=== PATIENT | female | born 1945 | race Caucasian/White ===

== ENCOUNTER → 2016-10-05 | Outpatient (CLI) | payer BC ==
[~2016-10-05] MED LIST: CHOL1000 PO; LOTE0.5S OPB; MULTTAB58 PO
--- NOTE | 2016-10-05 11:31 | DIAGNOSTIC IMAGING REPORT ---
ULTRASOUND ABDOMEN COMPLETE CLINICAL HISTORY: Epigastric abdominal pain. COMPARISON STUDY: Abdominal CT dated 02/27/2010. TECHNIQUE: Real-time, grayscale, and color flow sonography of the abdomen was performed. Images are reviewed in the transverse and longitudinal planes. FINDINGS: Liver: The liver is enlarged and demonstrates heterogeneously increased echotexture consistent with moderate to severe hepatic steatosis. Note that this degrades acoustic penetration of the liver. There is no intrahepatic biliary ductal dilatation. The main portal vein is patent. Gallbladder: The gallbladder is surgically absent. The common bile duct measures up to 0.6 cm in diameter. Pancreas: Visualized portions of the pancreatic head and body are normal in appearance. Spleen: The spleen is normal in size and echotexture, measuring 8.7 cm in length. Kidneys: The kidneys are normal in size and echotexture. There is no hydronephrosis. The right kidney measures 12.4 cm in length and the left kidney measures 12.0 cm in length. No shadowing calculi are identified. Abdominal vasculature: Visualized portions of the abdominal aorta and IVC are normal as visualized. Ascites: None. IMPRESSION: 1. No acute sonographic abnormality is identified noting status post cholecystectomy. 2. Hepatomegaly and hepatic steatosis. Electronically signed by: Devonte Orozco M.D. 10/05/2016 11:30 AM Dictated Date/Time: 10/05/2016 11:28 AM
== END | disposition home or self-care (01) ==
LOC: C.ULTR 10:20
PROVIDERS: ATTEND Family Medicine
DX: R10.13 Epigastric pain (principal); R16.0 Hepatomegaly, not elsewhere classified; K76.0 Fatty (change of) liver, not elsewhere classified

== ENCOUNTER → 2016-10-12 | Outpatient (CLI) | payer BC ==
[~2016-10-12] MED LIST changes: +OPTIRAY 320 IV PRN
--- NOTE | 2016-10-12 15:48 | DIAGNOSTIC IMAGING REPORT ---
CT OF THE ABDOMEN WITH AND WITHOUT CONTRAST LIVER PROTOCOL CT DOSE: 1799.10 mGycm CLINICAL HISTORY: Epigastric pain, hepatic steatosis and hepatomegaly. TECHNIQUE: Unenhanced, arterial and venous phase imaging of the abdomen was performed. Injection of 119 cc Optiray 320 IV was uneventful. COMPARISON STUDY: CT of the abdomen and pelvis February 27, 2010 and abdominal ultrasound October 05, 2016. FINDINGS: There is fatty infiltration of the liver. A 6 mm hypodense right hepatic lobe lesion is unchanged since CT of February 27, 2010 and is therefore benign. The spleen, adrenal glands, kidneys and pancreas are normal unremarkable. There is no biliary ductal dilatation status post cholecystectomy. The caliber and wall thickness of visualized small and large bowel are normal. There is no abdominal lymphadenopathy or ascites. There are no suspicious osseous lesions. There is mild dextroscoliosis of the lumbar spine. IMPRESSION: 1. Fatty infiltration of the liver. 2. No biliary ductal dilatation status post cholecystectomy. 3. No acute process within the abdomen. Electronically signed by: Godfrey Hernandez M.D. 10/12/2016 3:46 PM Dictated Date/Time: 10/12/2016 3:34 PM
== END | disposition home or self-care (01) ==
LOC: C.CTS 14:44
PROVIDERS: ATTEND Family Medicine
DX: R10.13 Epigastric pain (principal); R16.0 Hepatomegaly, not elsewhere classified; K76.0 Fatty (change of) liver, not elsewhere classified

== ENCOUNTER → 2017-07-08 | Outpatient (CLI) | payer BC ==
[~2017-07-08] MED LIST changes: -OPTIRAY 320 IV PRN
--- NOTE | 2017-07-08 09:13 | DIAGNOSTIC IMAGING REPORT ---
R KNEE 3 VIEWS CLINICAL HISTORY: 71 years-old Female presenting with RIGHT KNEE PAIN. TECHNIQUE: Bilateral frontal view of the knees as well as sunrise and lateral views of the right knee were obtained. COMPARISON: None. FINDINGS: The knee joints are symmetric. Osteophytosis noted in the lateral compartment of the left knee. Calcification in the proximal left lower leg likely degenerative or a phlebolith. The right knee demonstrates no significant osteophytosis in the medial or lateral compartments. Trace osteophytosis in the patellofemoral compartment. No significant patellar subluxation. No acute fracture or malalignment. Knee joint effusion suspected. IMPRESSION: 1. Right knee joint effusion. 2. No acute osseous injury of the right knee. 3. Degenerative changes in the patellofemoral compartment of the right knee. 4. Degenerative changes of the lateral compartment of the left knee. Electronically signed by: Eddie Mckay M.D. 07/08/2017 9:12 AM Dictated Date/Time: 07/08/2017 9:11 AM
== END | disposition home or self-care (01) ==
LOC: C.RDSM 13:31
PROVIDERS: ATTEND Family Medicine
DX: M25.561 Pain in right knee (principal); M25.461 Effusion, right knee; M17.0 Bilateral primary osteoarthritis of knee

== ENCOUNTER → 2017-11-03 | Outpatient (CLI) | payer BC | END | disposition home or self-care (01) | LOC: C.LAB 09:35 | PROVIDERS: ATTEND Family Medicine | DX: Z00.00 Encounter for general adult medical examination without abnormal findings (principal); H91.90 Unspecified hearing loss, unspecified ear; E55.9 Vitamin D deficiency, unspecified ==

== ENCOUNTER 2022-09-26 21:52 | Observation (INO) ==
[2022-09-26] MEDS ORDERED: SODIUM CHLORIDE 0.9% 500 ML IV ONE (22:35)
[2022-09-26 23:07] LABS: Basophils # (auto) 0.07 K/uL (0-0.2); Basophils % (auto) 1.1 %; Eosinophils # (auto) 0.21 K/uL (0-0.50); Eosinophils % (auto) 3.2 %; Hematocrit (blood only) 41.7 % (37.0-47.0); Hemoglobin 14.2 g/dl (12.0-16.0); Immature Granulocytes # (auto) 0.02 K/uL (0.01-0.20); Immature Granulocytes % (auto) 0.3 %; Lymphocytes # (auto) 2.43 K/uL (1.2-3.4); Lymphocytes % (auto) 36.9 %; Mean Corpuscular Hemoglobin 30.5 pg (25.0-34.0); Mean Corpuscular Hgb Conc 34.1 g/dL (32.0-36.0); Mean Corpuscular Volume 89.5 fL (80.0-100.0); Mean Platelet Volume 11.3 fL (9.4-12.4); Monocytes # (auto) 0.57 K/uL (0.11-0.59); Monocytes % (auto) 8.7 %; Neutrophils # (auto) 3.28 K/uL (1.40-6.50); Neutrophils % (auto) 49.8 %; Platelet Count 197 K/uL (130-400); RDW Coefficient of Variation 12.9 % (11.5-14.5); RDW Standard Deviation 42.5 fL (36.4-46.3); Red Blood Count 4.66 M/uL (4.20-5.40); White Blood Count 6.58 K/ul (4.8-10.8)
[2022-09-26 23:17] LABS: Albumin Globulin Ratio 1.6 (0.9-2); Albumin Level 4.6 gm/dl (3.4-5.0); BUN Creatinine Ratio 34.6 (10-20); Bilirubin,Total 0.9 mg/dl (0.2-1.0); Calcium 10.1 mg/dl (8.6-10.3); Creatinine Clr Calc Pharmacy 67.6 ml/min; Est GFR (African American) 85.6 ml/min; Est GFR (Non-African American) 73.8 ml/min; Globulin 2.9 gm/dl (2.5-4.0); Phosphorus 4.1 mg/dl (2.5-4.9); Potassium 3.5 mmol/L (3.5-5.1); Total Protein 7.5 gm/dl (6.0-8.3)
[2022-09-26 23:23] LABS: Troponin I High Sensitivity 5.3 pg/ml (0-14)
[2022-09-26] MEDS ORDERED: LORazepam 1 MG TAB SL STA (23:30)
[2022-09-26 23:35] LABS: Prothrombin Time 11.3 Seconds (9.0-12.0)
--- NOTE | 2022-09-26 23:36 | Emergency Department Note ---
Impression & Plan Paresthesia, Hypertension, Atypical chest pain ED Provider Note NAME: NANETTE CHURCHILL AGE: 76 SEX: F ARRIVES VIA: Walk-In INFORMANT: Patient ED PROVIDER(S): Kris Childress MD CHIEF COMPLAINT: Left lip and left hand numbness, tingling. Chest pain. PLAN: Disposition: Admit MEDICAL DECISION MAKING: The patient is a pleasant 76-year-old woman with a past medical history of vertigo, nephrolithiasis who presents to the emergency department via walk-in, accompanied by her and daughter for evaluation of left lip numbness and tingling as well as left hand, fingertip numbness and tingling that [place]. The patient's symptoms occur in the setting of having intermittent recurrence of the symptoms over the past month or so where she was seen in the emergency department last week by this provider and had unremarkable evaluation including CT of the head CTA of the head and neck. She has subsequently followed up with her primary care doctor's office and outpatient blood work had been ordered as well as patient was given a [place]. However, patient reports that she has yet to get these tests done. She also understands a stress test was ordered but has not heard about a scheduling date. She acknowledges today as she did on her prior visit that she is under a significant amount of stress and tonight she reports that her job was particularly stressful and describes the airport as "cra[place]". She denies any fevers, chills, cough, congestion. She reports feeling several seconds of left lower chest tightness this evening when she was at home and this prompted her to come to emergency department for reevaluation. She reports since being seen in the emergency department last week she did not have any recurrence of the tingling in her lips or hand. Her blood pressure was elevated on her last emergency department evaluation however she reports upon following up at her PCPs office this past week her blood pressure was in the 130s/80s. On arrival to the emergency department the patient is anxious appearing but no acute distress, afebrile with blood pressure initially 200/100s and vital signs otherwise stable. She appears clinically dry. She has no objective focal neurologic deficits. At the time of my evaluation the patient denied feeling paresthesias in her lips or hands and reports that her first second and third fingertips are what are typically affected. EKG without overt acute ischemia. Chest x-ray negative for acute cardiopulmonary process per my preliminary review. WBC, H/H and platelets within normal limits. Chemistry without metabolic acidosis. BUN/creatinine> 30 consistent with patient's clinically dry appearance. Electrolytes and LFTs otherwise unremarkable. High-sensitivity troponin 5.3, within normal limits. TSH within normal limits. COVID-19 RNA, MIOL test negative. CT of the head and CT of the head and neck were performed and were negative for acute abnormalities. Patient was treated with IV fluid hydration and 0.5 mg of sublingual Ativan with subsequent improvement in her blood pressure down to the 160s/80s. However upon reevaluation patient the patient does appear more restless and blood pressure was then again elevated. We did discuss her recurrent symptoms and ultimately she did agree with plan for admission for further evaluation. Case was discussed with Dr. Hines, [facility] hospitalist, who will evaluate the patient for admission. Triage Nursing notes reviewed and agree them. Prior/outside medical records reviewed Vital Signs: reviewed Differential diagnosis: Infection, dehydration, metabolic abnormality, hypo/hyperglycemia, electrolyte disturbance, anemia, hypoxia, cardiac sources, intracerebral event, toxicologic, neurologic, as well as other pathologies. ER treatment provided: See below. Diagnostics interpreted by me: ECG: Normal sinus rhythm, 65 bpm, no ectopy. No overt ST elevation or depression, QTc 440, QRS 86 Cardiac Monitoring: An order for continuous cardiac monitoring was placed and demonstrated Normal sinus rhythm, 65 bpm, no ectopy. Laboratory studies: See below Imaging studies: See below Consultation(s): Case was discussed with Dr. Hines [facility] hospitalist, who will evaluate the patient for admission. HPI: The patient is a pleasant 76-year-old woman with a past medical history of vertigo, nephrolithiasis who presents to the emergency department via walk-in, accompanied by her and daughter for evaluation of left lip numbness and tingling as well as left hand, fingertip numbness and tingling that began today when [place]. The patient's symptoms occur in the setting of having intermittent recurrence of the symptoms over the past month or so where she was seen in the emergency department last week by this provider and had unremarkable evaluation including CT of the head CTA of the head and neck. She has subsequently followed up with her primary care doctor's office and outpatient blood work had been ordered as well as patient was given a [place]. However, patient reports that she has yet to get these tests done. She also understands a stress test was ordered but has not heard about a scheduling date. She acknowledges today as she did on her prior visit that she is under a significant amount of stress and tonight she reports that her job was particularly stressful and describes the airport as "cra[place]". She denies any fevers, chills, cough, congestion. She reports feeling several seconds of left lower chest tightness this evening when she was at home and this prompted her to come to emergency department for reevaluation. She reports since being seen in the emergency department last week she did not have any recurrence of the tingling in her lips or hand. Her blood pressure was elevated on her last emergency department evaluation however she reports upon following up at her PCPs office this past week her blood pressure was in the 130s/80s. ROS: See above HPI for pertinent positives & negatives. A total of 10 systems reviewed and were otherwise negative. VITALS:See Below PHYSICAL EXAMINATION: GENERAL: Awake, alert, anxious-appearing, in no distress HENT: Normocephalic, atraumatic. Oropharynx with dry mucous membranes and otherwise unremarkable. EYES: Normal conjunctiva. Sclera non-icteric. EOMI. No nystamgus. PEARRL. NECK: Supple. No nuchal rigidity. FROM. No JVD. RESPIRATORY: Clear to auscultation. CARDIAC: Regular rate, normal rhythm. Extremities warm and well perfused. Pulses equal. ABDOMEN: Soft, non-distended. No tenderness to palpation. No rebound or guarding. No masses. RECTAL: Deferred. MUSCULOSKELETAL: Chest examination reveals no tenderness. The back is symmetrical on inspection without obvious abnormality. There is no CVA tenderness to palpation. No joint edema. LOWER EXTREMITIES: Calves are equal size bilaterally and non-tender. No edema. No discoloration. NEURO: Normal sensorium. No sensory or motor deficits noted. CNII-XII grossly intact. 5/5 strength and SILT x 4 extremities. Cerebellar function intact including [id number], alternating palms, [id number]. SKIN: No rash or jaundice noted. Kris Childress MD Past Med/Surg History Medical History (Updated 09/27/22 @ 02:23 by Kris Childress MD) Benign positional vertigo Fall SNHL (sensorineural hearing loss) Uses hearing aid Wrist pain, left Surgical History Cataract extraction status H/O breast reconstruction H/O: section Hx of tonsillectomy Post corneal transplant S/P mastectomy Family History Father Stroke Family/Other Hearing loss Other No significant family history Social History Smoking Status: Never smoker Preferred Language: Citizen Of [place] marital status: Current Living Situation: Spouse current occupational status: employed Feels Safe at Home: Yes Allergies Allergies Allergy/AdvReac Type Severity Reaction Status Date / Time insect venom Allergy Unknown Verified 09/27/22 02:14 No Known Drug Allergies Allergy NKDA Verified 09/27/22 02:14 Home Meds Home Medications Medication Instructions Recorded Confirmed biotin 5 mg tablet 0 mg PO QAM 12/08/18 09/27/22 cholecalciferol (vitamin D3) 125 5,000 unit PO QAM 12/08/18 09/27/22 mcg (5,000 unit) tablet (Vitamin D3) loteprednol etabonate 0.5 % eye 1 drp OPB 3XWK 09/27/22 09/27/22 drops,suspension (Lotemax) vit C 30 mg-s.smith 250 mg-celery 1 cap PO DAILY 09/27/22 09/27/22 seed 75 mg-grape seed extrt capsule (Tart Smith) Previous Rx's Medication Instructions Recorded epinephrine 0.3 mg/0.3 mL 0.3 mg (0.3 mL) IM Q15M PRN 11/24/18 injection, auto-injector anaphylaxis #2 ea Results & Data (ED) Vital Signs Vital Signs - 24 hr 09/26/22 21:54 09/26/22 21:53 09/26/22 23:12 Temperature 36.7 C Temperature Source Temporal Artery Scan Pulse Rate 71 Pulse Rate [Right Finger] 58 L Pulse Rhythm Respiratory Rate 18 15 23 Respiratory Effort / Characteristics Non-Labored Spontaneous Non-Labored Respiratory Depth Normal Normal Blood Pressure 191/79 H Blood Pressure [Right Arm] 202/100 H 191/97 H Blood Pressure Mean 116 Blood Pressure Mean [Right Arm] 134 128 Pulse Oximetry 97 99 98 Oxygen Delivery Method Room Air Room Air Room Air Sepsis Recent Fever Within 48 Hours No Sepsis New/Unexplained Change in Mental Status No Sepsis Action Taken by Nursing No Action Required 09/26/22 22:33 09/27/22 00:12 09/27/22 00:47 Temperature Temperature Source Pulse Rate 62 Pulse Rate [Right Finger] 71 62 Pulse Rhythm Regular Respiratory Rate 16 16 21 Respiratory Effort / Characteristics Respiratory Depth Blood Pressure Blood Pressure [Right Arm] 169/87 H 191/96 H Blood Pressure Mean Blood Pressure Mean [Right Arm] 114 127 Pulse Oximetry 100 99 93 Oxygen Delivery Method Room Air Room Air Room Air Sepsis Recent Fever Within 48 Hours Sepsis New/Unexplained Change in Mental Status Sepsis Action Taken by Nursing 09/27/22 01:04 09/27/22 02:00 Temperature Temperature Source Pulse Rate Pulse Rate [Right Finger] 61 110 H Pulse Rhythm Respiratory Rate 16 16 Respiratory Effort / Characteristics Respiratory Depth Blood Pressure Blood Pressure [Right Arm] 177/93 H 177/92 H Blood Pressure Mean Blood Pressure Mean [Right Arm] 121 120 Pulse Oximetry 94 98 Oxygen Delivery Method Sepsis Recent Fever Within 48 Hours Sepsis New/Unexplained Change in Mental Status Sepsis Action Taken by Nursing Laboratory Data Attestation: I reviewed the patient's lab results. 09/26/22 22:15 09/26/22 22:15 Lab Results 09/26/22 09/26/22 09/26/22 Range/Units 22:15 22:15 22:15 WBC 6.58 (4.8-10.8) K/ul RBC 4.66 (4.20-5.40) M/uL Hgb 14.2 (12.0-16.0) g/dl Hct 41.7 (37.0-47.0) % MCV 89.5 (80.0-100.0) fL MCH 30.5 (25.0-34.0) pg MCHC 34.1 (32.0-36.0) g/dL RDW Std Deviation 42.5 (36.4-46.3) fL RDW Coeff of Oscar 12.9 (11.5-14.5) % Plt Count 197 (130-400) K/uL MPV 11.3 (9.4-12.4) fL Immature Gran % (Auto) 0.3 % Neut % (Auto) 49.8 % Lymph % (Auto) 36.9 % [place] % (Auto) 8.7 % Eos % (Auto) 3.2 % Baso % (Auto) 1.1 % Neut # (Auto) 3.28 (1.40-6.50) K/uL Lymph # (Auto) 2.43 (1.2-3.4) K/uL [place] # (Auto) 0.57 (0.11-0.59) K/uL Eos # (Auto) 0.21 (0-0.50) K/uL Baso # (Auto) 0.07 (0-0.2) K/uL Immature Gran # (Auto) 0.02 (0.01-0.20) K/uL PT (9.0-12.0) Seconds INR (0.9-1.1) Sodium 139 (136-145) mmol/L Potassium 3.5 (3.5-5.1) mmol/L Chloride 104 (98-107) mmol/L Carbon Dioxide 27 (21-32) mmol/L Anion Gap 8 (3-11) BUN 27 H (6-23) mg/dl Creatinine 0.78 (0.6-1.2) mg/dl Est Cr Clr Drug Dosing 67.6 ml/min Est GFR ( Amer) 85.6 ml/min Est GFR (Non-Af Amer) 73.8 ml/min BUN/Creatinine Ratio 34.6 H (10-20) Glucose 93 (70-99(Fasting)) mg/dl Calcium 10.1 (8.6-10.3) mg/dl Phosphorus 4.1 (2.5-4.9) mg/dl Magnesium 2.0 (1.7-2.4) mg/dl Total Bilirubin 0.9 (0.2-1.0) mg/dl AST 21 (13-39) U/L ALT 17 (7-52) U/L Alkaline Phosphatase 56 (34-104) U/L Troponin I High Sens 5.3 (0-14) pg/ml Total Protein 7.5 (6.0-8.3) gm/dl Albumin 4.6 (3.4-5.0) gm/dl Globulin 2.9 (2.5-4.0) gm/dl Albumin/Globulin Ratio 1.6 (0.9-2) Lipase 13 (11-82) U/L TSH 3.162 (0.300-4.500) uIu/ml SARS-CoV-2, RNA, NAAT (NEGATIVE) 09/26/22 09/26/22 Range/Units 22:15 22:39 WBC (4.8-10.8) K/ul RBC (4.20-5.40) M/uL Hgb (12.0-16.0) g/dl Hct (37.0-47.0) % MCV (80.0-100.0) fL MCH (25.0-34.0) pg MCHC (32.0-36.0) g/dL RDW Std Deviation (36.4-46.3) fL RDW Coeff of Oscar (11.5-14.5) % Plt Count (130-400) K/uL MPV (9.4-12.4) fL Immature Gran % (Auto) % Neut % (Auto) % Lymph % (Auto) % [place] % (Auto) % Eos % (Auto) % Baso % (Auto) % Neut # (Auto) (1.40-6.50) K/uL Lymph # (Auto) (1.2-3.4) K/uL [place] # (Auto) (0.11-0.59) K/uL Eos # (Auto) (0-0.50) K/uL Baso # (Auto) (0-0.2) K/uL Immature Gran # (Auto) (0.01-0.20) K/uL PT 11.3 (9.0-12.0) Seconds INR 1.0 (0.9-1.1) Sodium (136-145) mmol/L Potassium (3.5-5.1) mmol/L Chloride (98-107) mmol/L Carbon Dioxide (21-32) mmol/L Anion Gap (3-11) BUN (6-23) mg/dl Creatinine (0.6-1.2) mg/dl Est Cr Clr Drug Dosing ml/min Est GFR ( Amer) ml/min Est GFR (Non-Af Amer) ml/min BUN/Creatinine Ratio (10-20) Glucose (70-99(Fasting)) mg/dl Calcium (8.6-10.3) mg/dl Phosphorus (2.5-4.9) mg/dl Magnesium (1.7-2.4) mg/dl Total Bilirubin (0.2-1.0) mg/dl AST (13-39) U/L ALT (7-52) U/L Alkaline Phosphatase (34-104) U/L Troponin I High Sens (0-14) pg/ml Total Protein (6.0-8.3) gm/dl Albumin (3.4-5.0) gm/dl Globulin (2.5-4.0) gm/dl Albumin/Globulin Ratio (0.9-2) Lipase (11-82) U/L TSH (0.300-4.500) uIu/ml SARS-CoV-2, RNA, NAAT NEGATIVE (NEGATIVE) Administered Medications Sodium Chloride (Nss) 500 mls @ 125 mls/hr IV .Q4H KYARA Stop: 10/26/22 23:44 Last Admin: 09/27/22 00:12 Dose: 125 mls/hr Documented By: BEE Discontinued Medications Sodium Chloride (Nss) 500 mls @ 999 mls/hr IV .Q31M ONE Stop: 09/26/22 23:05 Last Infusion: 09/26/22 23:11 Dose: 0 mls/hr Documented By: Admin: 09/26/22 22:42 Dose: 999 mls/hr Documented By: BEE Ioversol (Optiray 320 500ml) 110 ml IV ONCE ONE Stop: 09/27/22 00:09 Last Admin: 09/27/22 00:00 Dose: 110 ml Documented By: JENNY Lorazepam (Lorazepam 1 Mg Tab) 0.5 mg SL NOW STA Stop: 09/26/22 23:31 Last Admin: 09/26/22 23:44 Dose: 0.5 mg Documented By: BEE Imaging Data Radiologist's Impression: Head CT 09/26/22 23:30 Exam(s): CT HEAD Without Contrast EXAM: CT Head Without Intravenous Contrast CLINICAL HISTORY: Reason for exam: left mouth and hand numbness/tingling. TECHNIQUE: Axial computed tomography images of the head/brain without intravenous contrast. CTDI is 37.78 mGy and DLP is 624.41 mGy-cm. Automated exposure control was utilized for the study. A dose lowering technique was utilized adhering to the principles of ALARA. COMPARISON: No relevant prior studies available. FINDINGS: Brain: The cerebral and cerebellar sulci are mildly prominent consistent with mild brain atrophy. There are a few areas of decreased attenuation in the deep cerebral white matter consistent with mild small vessel ischemic/degenerative changes. No hemorrhage. Ventricles: Unremarkable. No ventriculomegaly. Bones/joints: Unremarkable. No acute fracture. Soft tissues: Unremarkable. Vasculature: Atherosclerotic disease. Sinuses: Unremarkable as visualized. No acute sinusitis. Mastoid air cells: Unremarkable as visualized. No mastoid effusion. IMPRESSION: No acute findings in the head/brain. Electronically signed by: Jeremy Melgar MD 09/27/22 00:28 AM Head CTA 09/26/22 23:30 Exam(s): CTA HEAD With Contrast IV Amt: 110 ML EXAM: CT Angiography Head With Intravenous Contrast CLINICAL HISTORY: Reason for exam: left mouth and hand numbness/tingling. TECHNIQUE: Axial computed tomographic angiography images of the head with intravenous contrast. CTDI is no solid 20.76 mGy and DLP is 10.38 mGy-cm. Automated exposure control was utilized for the study. A dose lowering technique was utilized adhering to the principles of ALARA. MIP reconstructed images were created and reviewed. CONTRAST: Patient received 110 ML of IV contrast COMPARISON: Dated 09/18/22 FINDINGS: Right internal carotid artery: No acute findings. Intracranial segment is patent with no significant stenosis. No aneurysm. Right anterior cerebral artery: Unremarkable. No occlusion or significant stenosis. No aneurysm. Right middle cerebral artery: Unremarkable. No occlusion or significant stenosis. No aneurysm. Right posterior cerebral artery: Unremarkable. No occlusion or significant stenosis. No aneurysm. Right vertebral artery: Unremarkable as visualized. Left internal carotid artery: No acute findings. Intracranial segment is patent with no significant stenosis. No aneurysm. Left anterior cerebral artery: Unremarkable. No occlusion or significant stenosis. No aneurysm. Left middle cerebral artery: Unremarkable. No occlusion or significant stenosis. No aneurysm. Left posterior cerebral artery: Unremarkable. No occlusion or significant stenosis. No aneurysm. Left vertebral artery: Unremarkable as visualized. Basilar artery: Unremarkable. No occlusion or significant stenosis. No aneurysm. IMPRESSION: Normal head CTA. Electronically signed by: Jeremy Melgar MD 09/27/22 00:24 AM Neck CTA 09/26/22 23:30 Exam(s): CTA NECK With Contrast IV Amt: 110 ML EXAM: CT Angiography Neck With Intravenous Contrast CLINICAL HISTORY: Reason for exam: left mouth and hand numbness/tingling. TECHNIQUE: Routine carotid CT angiography protocol was performed with intravenous contrast. NASCET criteria using the distal ICAs for comparison were used for evaluation of stenoses. CTDI is 11.92 mGy and DLP is 456.52 mGy-cm. Automated exposure control was utilized for the study. A dose lowering technique was utilized adhering to the principles of ALARA. MIP reconstructed images were created and reviewed. CONTRAST: Patient received 110 ML of IV contrast COMPARISON: None. FINDINGS: VASCULATURE: Right common carotid artery: Unremarkable. No occlusion or significant stenosis. No dissection. Right internal carotid artery: Unremarkable. Extracranial segment is patent with no occlusion or significant stenosis. No dissection. Right external carotid artery: Unremarkable. No occlusion. Right vertebral artery: Unremarkable. No occlusion or significant stenosis. No dissection. Left common carotid artery: Unremarkable. No occlusion or significant stenosis. No dissection. Left internal carotid artery: Unremarkable. Extracranial segment is patent with no occlusion or significant stenosis. No dissection. Left external carotid artery: Unremarkable. No occlusion. Left vertebral artery: Unremarkable. No occlusion or significant stenosis. No dissection. NECK: Bones/joints: Unremarkable. Soft tissues: Unremarkable. Lung apices: Clear. CAROTID STENOSIS REFERENCE USING NASCET CRITERIA: % ICA stenosis = (1 - narrowest ICA diameter/diameter of distal cervical ICA) x 100. Mild - <50% stenosis. Moderate - 50-69% stenosis. Severe - 70-94% stenosis. Near occlusion - 95-99% stenosis. Occluded - 100% stenosis. IMPRESSION: Negative CTA neck. Electronically signed by: Jeremy Melgar MD 09/27/22 00:25 AM Discharge Plan Visit Data Chief Complaint: Illness Stated Complaint: NUMBNESS ON LEFT SIDE OF MOUTH AND FINGERS ED Provider: Kris Childress Discharge Problem: Paresthesia, Hypertension, Atypical chest pain Forms Stand Alone Forms: [facility] Prescriptions Prescriptions: No Action epinephrine 0.3 mg/0.3 mL auto-injector 0.3 mg IM Q15M PRN (Reason: anaphylaxis) Qty: 2 0RF biotin 5 mg Tablet 0 mg PO QAM Patient Comments: Patient unsure of strength cholecalciferol (vitamin D3) [Vitamin D3] 5,000 unit Tablet 5,000 unit PO QAM loteprednol etabonate [Lotemax] 0.5 % drops,suspension 1 drp OPB 3XWK Rx Instructions: Mon, wed, fri Tart Smith [id number] mg Capsule 1 cap PO DAILY Referrals Referrals: Dionicio López MD [Primary Care Provider] -
[2022-09-27] MEDS ORDERED: OPTIRAY 320 500ml IV ONE (00:08)
[2022-09-27] MEDS: SODIUM CHLORIDE 0.9% 500 ML IV SCH ×2 (00:12→03:19)
--- NOTE | 2022-09-27 00:25 | CT Scan Report ---
Exam(s): CTA HEAD With Contrast IV Amt: 110 ML EXAM: CT Angiography Head With Intravenous Contrast CLINICAL HISTORY: Reason for exam: left mouth and hand numbness/tingling. TECHNIQUE: Axial computed tomographic angiography images of the head with intravenous contrast. CTDI is no solid 20.76 mGy and DLP is 10.38 mGy-cm. Automated exposure control was utilized for the study. A dose lowering technique was utilized adhering to the principles of ALARA. MIP reconstructed images were created and reviewed. CONTRAST: Patient received 110 ML of IV contrast COMPARISON: Dated 09/18/22 FINDINGS: Right internal carotid artery: No acute findings. Intracranial segment is patent with no significant stenosis. No aneurysm. Right anterior cerebral artery: Unremarkable. No occlusion or significant stenosis. No aneurysm. Right middle cerebral artery: Unremarkable. No occlusion or significant stenosis. No aneurysm. Right posterior cerebral artery: Unremarkable. No occlusion or significant stenosis. No aneurysm. Right vertebral artery: Unremarkable as visualized. Left internal carotid artery: No acute findings. Intracranial segment is patent with no significant stenosis. No aneurysm. Left anterior cerebral artery: Unremarkable. No occlusion or significant stenosis. No aneurysm. Left middle cerebral artery: Unremarkable. No occlusion or significant stenosis. No aneurysm. Left posterior cerebral artery: Unremarkable. No occlusion or significant stenosis. No aneurysm. Left vertebral artery: Unremarkable as visualized. Basilar artery: Unremarkable. No occlusion or significant stenosis. No aneurysm. IMPRESSION: Normal head CTA. Electronically signed by: Jeremy Melgar MD 09/27/22 00:24 AM
--- NOTE | 2022-09-27 00:26 | CT Scan Report ---
Exam(s): CTA NECK With Contrast IV Amt: 110 ML EXAM: CT Angiography Neck With Intravenous Contrast CLINICAL HISTORY: Reason for exam: left mouth and hand numbness/tingling. TECHNIQUE: Routine carotid CT angiography protocol was performed with intravenous contrast. NASCET criteria using the distal ICAs for comparison were used for evaluation of stenoses. CTDI is 11.92 mGy and DLP is 456.52 mGy-cm. Automated exposure control was utilized for the study. A dose lowering technique was utilized adhering to the principles of ALARA. MIP reconstructed images were created and reviewed. CONTRAST: Patient received 110 ML of IV contrast COMPARISON: None. FINDINGS: VASCULATURE: Right common carotid artery: Unremarkable. No occlusion or significant stenosis. No dissection. Right internal carotid artery: Unremarkable. Extracranial segment is patent with no occlusion or significant stenosis. No dissection. Right external carotid artery: Unremarkable. No occlusion. Right vertebral artery: Unremarkable. No occlusion or significant stenosis. No dissection. Left common carotid artery: Unremarkable. No occlusion or significant stenosis. No dissection. Left internal carotid artery: Unremarkable. Extracranial segment is patent with no occlusion or significant stenosis. No dissection. Left external carotid artery: Unremarkable. No occlusion. Left vertebral artery: Unremarkable. No occlusion or significant stenosis. No dissection. NECK: Bones/joints: Unremarkable. Soft tissues: Unremarkable. Lung apices: Clear. CAROTID STENOSIS REFERENCE USING NASCET CRITERIA: % ICA stenosis = (1 - narrowest ICA diameter/diameter of distal cervical ICA) x 100. Mild - <50% stenosis. Moderate - 50-69% stenosis. Severe - 70-94% stenosis. Near occlusion - 95-99% stenosis. Occluded - 100% stenosis. IMPRESSION: Negative CTA neck. Electronically signed by: Jeremy Melgar MD 09/27/22 00:25 AM
--- NOTE | 2022-09-27 00:29 | CT Scan Report ---
Exam(s): CT HEAD Without Contrast EXAM: CT Head Without Intravenous Contrast CLINICAL HISTORY: Reason for exam: left mouth and hand numbness/tingling. TECHNIQUE: Axial computed tomography images of the head/brain without intravenous contrast. CTDI is 37.78 mGy and DLP is 624.41 mGy-cm. Automated exposure control was utilized for the study. A dose lowering technique was utilized adhering to the principles of ALARA. COMPARISON: No relevant prior studies available. FINDINGS: Brain: The cerebral and cerebellar sulci are mildly prominent consistent with mild brain atrophy. There are a few areas of decreased attenuation in the deep cerebral white matter consistent with mild small vessel ischemic/degenerative changes. No hemorrhage. Ventricles: Unremarkable. No ventriculomegaly. Bones/joints: Unremarkable. No acute fracture. Soft tissues: Unremarkable. Vasculature: Atherosclerotic disease. Sinuses: Unremarkable as visualized. No acute sinusitis. Mastoid air cells: Unremarkable as visualized. No mastoid effusion. IMPRESSION: No acute findings in the head/brain. Electronically signed by: Jeremy Melgar MD 09/27/22 00:28 AM
--- NOTE | 2022-09-27 03:47 | History & Physical Report ---
Date of Service September 27, 2022 Assessment & Plan (1) Paresthesia of lower lip: Plan: 76 F with no significant PMH who presented to the emergency room for focal perioral numbness and tingling, and distal fingertip numbness and tingling on the left. Admitted for further work-up/stroke, TIA rule out. Paresthesias -Unclear etiology. Appear to be brought on by stress at work. Appear to be accompanied by paroxysmal anxiety. -Diagnostic work-up thus far negative. Neurologic physical exam done at admission benign, nonfocal. No dysarthria, dysmetria, or facial droop. -Symptoms vaguely resemble TIA presentation but patient has no chronic history of hypertension or atherosclerotic disease. ABCD score of 2, suggesting low risk for TIA. * Admit to PCU telemetry for observation * MRI brain, TTE ordered. Await report * Lipid panel ordered. Await results * Started on aspirin 81 mg daily * Consider outpatient neurology evaluation if results remain nondiagnostic. Hypertension -Acute; not on any chronic medications. -Review of [facility] chart shows normal blood pressures going back 18 months Code: Full code Dispo: PCU FEN/GI: Regular DVT Prophylaxis: Lovenox 40 mg q24h PT/OT: No Consults: None Case Management: No (2) Left hand paresthesia: (3) Elevated blood pressure reading: (4) Hypertension: History of Present Illness Primary Care Provider: Dioniciokathy López Yumiko is a 76-year-old woman with a past medical history of who sensorineural hearing loss and BPPV, who presented to the emergency room after an acute episode of left-sided lip numbness tingling, left hand, left fingertip numbness and tingling that started at work this afternoon. Patient reports this is the third or fourth instance of this phenomenon which occurred for the first time last month. She had reached out to her PCP for outpatient evaluation of the same symptoms but work-up (including CT head, CT head/neck) was negative. She denies any recent illness, history of hypertension, vision changes, headache, shortness of breath, chest pain, nausea, vomiting, or pedal edema. In the ED, blood pressure was elevated to the 190s-200s systolic/100s diastolic. Remaining vitals were within normal limits. CBC was normal, as was CMP. Noncontrast head CT, and head and neck CTA done tonight were both negative. She received an NS bolus x0.5 L. She received sublingual lorazepam 0.5 mg, after which her pressure improved slightly. Hospitalist was then consulted for admission to observation for further diagnostic work-up. On admission, and daughter are at bedside. They corroborate the HPI. She does not have the presenting lip numbness or left fingertip numbness at present. She reports that she recently stopped taking sertraline, which was started approximately 2 months ago by her PCP, because it was not working for her, and she felt better after stopping it. Allergies Allergy/AdvReac Type Severity Reaction Status Date / Time insect venom Allergy Unknown Verified 09/27/22 02:14 No Known Drug Allergies Allergy NKDA Verified 09/27/22 02:14 Home Medications Medication Instructions Recorded Confirmed Type epinephrine 0.3 mg/0.3 mL 0.3 mg (0.3 mL) IM Q15M PRN 11/24/18 09/27/22 Rx injection, auto-injector anaphylaxis #2 ea biotin 5 mg tablet 0 mg PO QAM 12/08/18 09/27/22 History cholecalciferol (vitamin D3) 125 5,000 unit PO QAM 12/08/18 09/27/22 History mcg (5,000 unit) tablet (Vitamin D3) loteprednol etabonate 0.5 % eye 1 drp OPB 3XWK 09/27/22 09/27/22 History drops,suspension (Lotemax) rosuvastatin 5 mg tablet 5 mg PO DAILY #30 tabs 09/27/22 Rx vit C 30 mg-s.smith 250 mg-celery 1 cap PO DAILY 09/27/22 09/27/22 History seed 75 mg-grape seed extrt capsule (Tart Smith) Past Med/Surg History Medical History (Updated 09/27/22 @ 02:23 by Kris Childress MD) Benign positional vertigo Fall SNHL (sensorineural hearing loss) Uses hearing aid Wrist pain, left Surgical History Cataract extraction status H/O breast reconstruction H/O: section Hx of tonsillectomy Post corneal transplant S/P mastectomy Family History Father Stroke Family/Other Hearing loss Other No significant family history Social History Smoking Status: Never smoker Second Hand Exposure: No; Do You Dip or Chew Tobacco: No; Hx Alcohol Use: Yes Alcohol type: wine Hx Substance Use: No Preferred Language: Italian Communication Ability: Effective Air Hole Driller Required: No Beliefs That Will Affect Care: None marital status: Current Living Situation: Spouse Current Living Situation Comment: Home with current occupational status: employed Feels Safe at Home: Yes Assistive Devices: Hearing Aid - Bilateral Review of Systems Review of Systems: All systems reviewed & are unremarkable except as noted in HPI & below Physical Exam Physical Exam: General: Well-appearing, alert, interactive, and in no acute distress. HEENT: Normocephalic, atraumatic. EOM intact. Good conjugate gaze. Nares patent. Moist mucosal membranes. Neck: Supple. No lymphadenopathy. Normal ROM. CV: Regular rate and rhythm. Normal S1 and S2. No murmurs gallops or rubs. Respiratory: Normal respiratory effort. Lungs clear to auscultation bilaterally. No crackles, rhonchi, or wheezes. Abdomen: Soft, nondistended abdomen. No bruits heard on auscultation. No tenderness to deep palpation. No guarding or rebound. Extremities: Capillary refill <2 sec. 2+ dp equal bilaterally. No pedal edema. Neuro: Alert and oriented x3. Skin: Clean, dry, and intact. No rashes, bruises, or erythema. Results & Data Results & Data Vital Signs (Past 12 Hours) Vital Signs Temp Pulse Pulse Resp BP BP Pulse Ox 09/27/22 02:21 58 L 09/27/22 02:37 79 16 175/96 H 97 09/27/22 02:00 110 H 16 177/92 H 98 09/27/22 01:04 61 16 177/93 H 94 09/27/22 00:47 62 21 191/96 H 93 09/27/22 00:12 71 16 169/87 H 99 09/26/22 22:33 62 16 100 09/26/22 23:12 58 L 23 191/97 H 98 09/26/22 21:53 15 202/100 H 99 09/26/22 21:54 36.7 C 71 18 191/79 H 97 O2 Del Method 09/27/22 02:21 09/27/22 02:37 09/27/22 02:00 09/27/22 01:04 09/27/22 00:47 Room Air 09/27/22 00:12 Room Air 09/26/22 22:33 Room Air 09/26/22 23:12 Room Air 09/26/22 21:53 Room Air 09/26/22 21:54 Room Air Supervising Physician Co-Signing Physician Notes Attending addendum: I have supervised the medical residents activities, and agree with the H&P unless as otherwise noted. Assessment and Plan: Lower lip paresthesias- The patient will be admitted to telemetry for serial cardiac enzymes, serial EKG's, cardiac rhythm monitoring and a 2-D echocardiogram with Dopplers. Stroke without tPA order set Negative stroke evaluation: CT head negative, CTA head neck negative MRI brain without contrast ordered Admit to monitored bed overnight Permissive hypertension overnight Elevated blood pressure- Likely secondary to stress, although allow permissive hypertension for possible stroke related issues Hyperlipidemia- Continue rosuvastatin Remaining orders and notations as noted Resident Activity Tracking Resident Involvement: Resident Care Provided Care Provided: Adult Hospital Medicine
[2022-09-27] MEDS ORDERED: EPINEPHrine INJ 1 MG/ML AMP IM PRN (05:17)
[2022-09-27 05:44] LABS: Appearance Urine Clear (Clear); Bilirubin Urine Negative (Negative); Blood Urine Negative (Negative); Color Urine Yellow; Glucose Urine UA Negative (Negative); Ketones Urine Negative (Negative); Leukocyte Esterase Urine Negative (Negative); Nitrite Urine Negative (Negative); Protein Urine Negative (Negative); Specific Gravity Urine 1.036 (1.000-1.030); Urobilinogen Urine Negative (Negative); pH Urine 6.5 (4.5-7.5)
--- NOTE | 2022-09-27 07:38 | Electrocardiogram Report ---
Test Reason : Blood Pressure : / mmHG Vent. Rate : 065 BPM Atrial Rate : 065 BPM P-R Int : 194 ms QRS Dur : 086 ms QT Int : 424 ms P-R-T Axes : 066 001 040 degrees QTc Int : 440 ms Normal sinus rhythm Poor R wave progression, consider anterior TN vs. lead placement vs. LVH Abnormal ECG When compared with ECG of 18-SEP-2022 11:23, No significant change was found Confirmed by Sanjeev Jovel ([id number]) on 09/27/2022 7:37:49 AM Referred By: REFERRED SELF Confirmed By:Vincenzo Jovel
[2022-09-27 07:54] LABS: Chol HDL Ratio 3.9 (0-5)
[2022-09-27 08:44] LABS: Estimated Average Glucose 126 mg/dl
--- NOTE | 2022-09-27 08:59 | XCELERA ---
[id number]
[2022-09-27] MEDS ORDERED: ASPIRIN 81 MG ECTAB PO SCH (09:00)
[2022-09-27] MEDS ORDERED: CHOLECALCIFEROL 5,000 UNITS 125 MCG TAB PO SCH (09:00)
--- NOTE | 2022-09-27 09:47 | XRay Report ---
XR chest 1V portable CLINICAL HISTORY: hand numbness TECHNIQUE: Single frontal radiograph of the chest was obtained. Comparison: Comparison is made to chest radiograph 09/18/2022 FINDINGS: No lines and tubes are seen. Cardiomegaly is noted. The lungs are clear. No evidence of pleural effus ion or pneumothorax. IMPRESSION: No acute chest disease. ACT 112: Negative or not required by law. Electronically signed by: Carlos A Roberts M.D. 09/27/2022 9:45 AM
--- NOTE | 2022-09-27 14:45 | Magnetic Resonance Report ---
MR brain wo con CLINICAL HISTORY: stroke r/o TECHNIQUE: Multiplanar and multisequence MR images of the brain were obtained without intravenous con trast. Comparison: Comparison is made to CTA head 09/26/2022 FINDINGS: No abnormal restricted diffusion is identified. Foci of T2 and FLAIR hyperintensity are noted in the paraventricular areas consistent with chronic small vessel ischemic disease. Ex vacuo ventriculomegal y and sulcal enlargement is noted compatible with diffuse volume loss. No mass is seen. There is no m ass effect or midline shift. There is no evidence of acute intraparenchymal hemorrhage. No extra axia l fluid collections are seen. The corpus callosum, pituitary gland, and cerebellar tonsils appear jag ssly unremarkable. Flow voids of the major intracranial arterial vessels are identified. The imaged portions of the para nasal sinuses, mastoid air cells, and orbits are unremarkable. IMPRESSION: No acute abnormalities. ACT 112: Negative or not required by law. Electronically signed by: Carlos A Roberts M.D. 09/27/2022 2:43 PM
--- NOTE | 2022-09-27 16:23 | Discharge Summary ---
Date of Service September 27, 2022 Admission HPI Per Admitting Provider Yumiko is a 76-year-old woman with a past medical history of who sensorineural hearing loss and BPPV, who presented to the emergency room after an acute episode of left-sided lip numbness tingling, left hand, left fingertip numbness and tingling that started at work this afternoon. Patient reports this is the third or fourth instance of this phenomenon which occurred for the first time last month. She had reached out to her PCP for outpatient evaluation of the same symptoms but work-up (including CT head, CT head/neck) was negative. She denies any recent illness, history of hypertension, vision changes, he adache, shortness of breath, chest pain, nausea, vomiting, or pedal edema. In the ED, blood pressure was elevated to the 190s-200s systolic/100s diastolic. Remaining vitals were within normal limits. CBC was normal, as was CMP. Noncontrast head CT, and head and neck CTA done tonight were both negative. She received an NS bolus x0.5 L. She received sublingual lorazepam 0.5 mg, after which her pressure improved slightly. Hospitalist was then consulted for admission to observation for further diagnostic work-up. On admission, and daughter are at bedside. They corroborate the HPI. She does not have the presenting lip numbness or left fingertip numbness at present. She reports that she recently stopped taking sertraline, which was started approximately 2 months ago by her PCP, because it was not working for her, and she felt better after stopping it. Admission Exam Per Admitting Provider General: Well-appearing, alert, interactive, and in no acute distress. HEENT: Normocephalic, atraumatic. EOM intact. Good conjugate gaze. Nares patent. Moist mucosal membranes. Neck: Supple. No lymphadenopathy. Normal ROM. CV: Regular rate and rhythm. Normal S1 and S2. No murmurs gallops or rubs. Respiratory: Normal respiratory effort. Lungs clear to auscultation bilaterally. No crackles, rhonchi, or wheezes. Abdomen: Soft, nondistended abdomen. No bruits heard on auscultation. No tenderness to deep palpation. No guarding or rebound. Extremities: Capillary refill <2 sec. 2+ dp equal bilaterally. No pedal edema. Neuro: Alert and oriented x3. Skin: Clean, dry, and intact. No rashes, bruises, or erythema. Principal Diagnosis paresthesia Discharge Exam GENERAL: No acute distress. Well developed and well nourished. Vital signs reviewed as above. EYES: PERRL. EOMI. Anicteric sclerae. HENT: Moist mucous membranes. RESPIRATORY: Clear to auscultation bilaterally. No wheezing, rales, or rhonchi. CARDIOVASCULAR: Regular rate and rhythm. No murmurs. No JVD. EXTREMITIES: No gross deformities. No edema. Non-tender. Negative Phalen's. Negative reverse Phalen's. Negative tinnel's test at carpal tunnel. SKIN: Warm, dry. NEUROLOGIC: A/O x3. Normal speech. No focal neurological deficits. CN II-XII intact. PSYCHIATRIC: Cooperative. Appropriate mood and affect. Discharge Data Allergies Allergy/AdvReac Type Severity Reaction Status Date / Time insect venom Allergy Unknown Verified 09/27/22 02:14 No Known Drug Allergies Allergy NKDA Verified 09/27/22 02:14 Consultations 09/27/22 01:39 ED Decision to Admit Stat Ordered Studies 09/26/22 23:30 CT angio head w con Stat CT angio neck with con Stat CT head/brain wo con Stat 09/27/22 03:14 MRI Brain [MR brain wo con] Routine Hospital Course (1) Paresthesia of lower lip: 76 F with no significant PMH who presented to the emergency room for focal perioral numbness and tingling, and distal fingertip numbness and tingling on the left. Admitted for further work-up/stroke, TIA rule out. [facility] was revisited with patient during day of admission. Patient reports that for the past ~1 month, she has had 5 distinct episodes (about once per week) of left perioral tingling as well as left distal fingertip (of just digits 1-3). The left perioral tingling starts at the midline of upper lip and radiates periorally to the midline of the lower lip. This perioral tingling lasts for about 5 minutes before spontaneously resolving. Concurrently, patient has left distal finger tingling that lasts "a little longer" than the perioral tingling. The last episode occurred last night while finishing a shift at work, which prompted her evaluation in the ER. Many of the episodes that she has had are associated with increased stress ([place] but she notes that they can also happen at rest. She adamantly denies CP, SOB, GOLDBERG, lightheadedness, dizziness, vision changes, abdominal pain, nausea, vomiting, or any other symptoms during these episodes. Also, interestingly, patient is able to precipitate some episodes (in particular the left finger tingling) by specific activities such as gripping the steering wheel hard or heavy lifting of luggage/work. Patient does report a hx of anxiety that was recently diagnosed but notes that she self-discontinued sertraline ~1 week ago as it was not helping. Paresthesias -No recurrence of symptoms during admission -Extensive discussion with patient regarding ddx including TIA vs neurological deficit due to increased stressors/anxiety. -Regardless, we did discuss that stress is likely contributing to these episodes. Patient to weight risk vs benefit of continuing to work at [employer] for the next 6 months. Encouraged continued conversation re: social stressors w/ PCP. -Workup completed 09/26-09/27/22: -MRI brain w/ no acute findings. There is evidence of chronic small vessel ischemic disease. -CTA head/neck negative -Head CT negative -TTE: mild concentric LVH. Grade 1 diasolic dysfunction. -Lipid profile: Total chol 206, LDL 128, HDL 52, trig 131 -HgbA1c 6.0% -TSH 3.16 -Discussed risk/benefit of ASA and statin for secondary risk reduction on the possibility/probability that these episodes were small vessel TIA. Through shared decision making, plan to start ASA and rosuvastatin. Hypertension -Acute; not on any chronic medications. ? baseline HTN vs white coat hypertension -Review of [facility] chart shows no significantly elevated BP readings in office over the past 18 months -Encouraged patient to buy home BP cuff and check home BP BID for several weeks -Take log of home BP readings to PCP f/u appt Anxiety/Increased social stressors -Discussed current stressors, with the primary stressor being work -Continue f/u with PCP and consider trial of different SSRI as she did not feel benefit with sertraline after ~2 month trial (2) Left hand paresthesia: (3) Elevated blood pressure reading: (4) Hypertension: Total Time Total Time Spent Total Time Spent (In Minutes): See attending attestation Discharge Plan Discharge Items Patient Disposition: Home - Self-Care Reason For Visit: STROKE R/O Discharge Diagnosis: paresthesia Activity: Per Instructions section Non-emergency contact: Primary Care Provider Call non-emergency contact if: you have any medication questions Follow-up/Referrals: Dionicio López MD [Primary Care Provider] - Diet: Regular Addtl Attending Provider Instructions: It was our pleasure to care for you at [facility] on 09/27/2022. You initially presented to the emergency room with concern for tingling around your lips as well as tingling of the first 3 fingers of your left hand. While in the emergency department, you had high blood pressures. You underwent extensive work up including imaging of your brain (both CT and MRI), CT angiography of your head and neck (looking at the vasculature), and labs. Thankfully, all of your symptoms have resolved. As we discussed, these symptoms are likely associated with your increased stress. It is possible that you are having small TIAs (a "mini stroke") and/or you are having some neurological deficits (e.g. the tingling) due to stress and anxiety. As we discussed the risks and benefits with you, we have decided to start you on aspirin and a cholesterol medication (statin) to protect you and decrease your risk of a stroke. We also discussed getting a blood pressure cuff to check your blood pressure at home. Please check your pressure 1-2 times per day and keep a log. This is important information to take to your primary care doctor in follow up. You have done well and at this time we feel that it is safe for you to be discharged home. A discharge summary will be sent to your primary care physician to ensure continuity of care. Please bring this discharge summary with you to your next office appointment so that your provider can review it at that time. Follow-up appointments: Keep all your follow-up appointments as already scheduled. If you cannot make an appointment, notify your provider. Medications: Your medication list has been reviewed and reconciled upon discharge to ensure accuracy and continuity of care. An updated list of all your medications is included with your hospital discharge paperwork. Please review this list closely, and make note of any changes. A new medication, rosuvastatin (Crestor), has been added to your medication list. A prescription for this medication has been sent to your pharmacy ([facility] in [place]). You should also start taking a baby aspirin, ASA 81 mg, by mouth once a day. If you have any issues filling these prescriptions, please call [phone] and ask to leave a message for Dr. Briscoe. Take your medications as instructed; do not skip a dose of your medicines. Make sure all of your doctors know every medicine you are taking (including pqlf-efh-zmdcyhi medicines, vitamins, and supplements). Call your primary care provider before taking any new medicines (including over- the- counter medicines, vitamins, and supplements), because some of these may interact with your current medications, or may make your symptoms worse. Tell your primary care provider if you cannot afford your medications. CONTACT YOUR PRIMARY CARE PROVIDER if you experience any of the following: Worsening of symptoms Fever, chills, or fatigue Difficulty following your treatment plan, or difficulty taking medications CALL 911 OR GO TO THE EMERGENCY DEPARTMENT if you experience any of the following: Sudden, severe abdominal pain or nausea/vomiting Severe chest pain, or chest pain that radiates (moves) to your jaw or arm Sudden, severe shortness of breath or difficulty breathing Thank you for allowing us to participate in your care. Pending Studies at Discharge: No Stand-Alone Forms: [facility] [employer], Smoking Cessation Medications and DC Order Prescriptions: New rosuvastatin 5 mg tablet 5 mg PO DAILY Qty: 30 0RF Continued epinephrine 0.3 mg/0.3 mL auto-injector 0.3 mg IM Q15M PRN (Reason: anaphylaxis) Qty: 2 0RF biotin 5 mg Tablet 0 mg PO QAM Patient Comments: Patient unsure of strength cholecalciferol (vitamin D3) [Vitamin D3] 5,000 unit Tablet 5,000 unit PO QAM loteprednol etabonate [Lotemax] 0.5 % drops,suspension 1 drp OPB [id number] Rx Instructions: Mon, wed, fri [place] [id number] mg Capsule 1 cap PO DAILY Discharge Orders: Discharge Order (Routine); Ordered 09/27/22 Ordered By: Obdulia Burden/Other Patient Handouts: A1C Admission Data Admit Date/Time: 09/27/22 03:06 Attending Provider: Jc Zambrano Admit Provider: Michelle Diane Primary Care Provider: Dionicio López Other Providers: Brendan Hines Other Interventions: Discharge Summary Assessment (RN) Last Done: 09/27/22 17:04 Supervising Physician Co-Signing Physician Notes I personally examined the patient and verified all nguyễn points of history and exam, discussed case, and agree with decision making with Dr Briscoe. Feeling better and would like to go home. Discussed working diagnoses, discussed that regardless of diagnosis, it is quite clear that stress plays a role. She was thinking about stopping this job anyway. Vitals noted, in general she is awake and alert pleasant no distress. HEENT normocephalic atraumatic mucous membranes moist. Breathing unlabored no accessory muscle use good effort. Skin shows no rashes no pallor or icterus. Neuro without focal deficits. CBC, BMP, A1c, lipid panel, echocardiogram, MRI brain all noted. ParesthesiasMain differential would be anxiety/carpal tunnel versus TIAthe fact that the face and hand symptoms seem to come and go simultaneous to each other, and the fact that her face symptoms appear to be left side of her mouth only makes me obligated to look at this is a TIAgiven her lack of other findings, it would almost certainly be intracranial atherosclerosis. Her A1c certainly is not high enough to warrant treatment, as it relates to her lipids, labeling her as having had a TIA would definitely warrant statin, will initiate aspirin 81 mg daily, and given her small vessel disease type findings on MRI, and LVH on echocardiogramI asked that she initiate ambulatory blood pressure monitoringroughly twice daily at homeunder varied circumstancesso that when she follows up with her PCP in the near future (she has an appointment in about 3 weeks) she will have a good run of averages to review togetherthis is especially because essentially all of her blood pressures in the [facility] EMR system look respectable/normal, and essentially all of her blood pressures in [facility] appear to be elevated. At this point no immediate need for antihypertensives. We discussed that it is quite possible that she has a little bit of atherosclerosis, but then stress mediated vasospasm could also be mechanism for the TIAs. safe/stable for home asa, atorvastatin for now PCP in near future (already scheduled for about 3wks) Resident Activity Tracking Resident Involvement: Resident Care Provided Care Provided: Adult Hospital Medicine
--- NOTE | 2022-09-27 18:02 | Billing Data ---
Date of Service September 27, 2022 Coding Level of Care Code 68493 IN/OBS DISCH 30 MIN/LESS
--- NOTE | 2022-09-27 20:49 | Billing Data ---
Date of Service September 27, 2022 Coding Level of Care Code 69345 INT INP/OBS CARE
[2022-09-28] MEDS ORDERED: ENOXAPARIN INJ 40 MG/0.4 ML SYR SQ SCH (09:00)
== END 2022-09-27 17:35 | disposition home or self-care (01) ==
LOC: 4W 21:52 → ED 21:52 → SUATTDRO 09-27 03:06 → 4W 09-27 04:43

== ENCOUNTER 2024-08-15 13:01 | Inpatient (IN) ==
[2024-08-15 13:57] LABS: Basophils # (auto) 0.07 K/uL (0.00-0.20); Basophils % (auto) 0.9 %; Eosinophils # (auto) 0.16 K/uL (0.00-0.50); Hematocrit (blood only) 41.4 % (37.0-47.0); Hemoglobin 14.1 g/dl (12.0-16.0); Immature Granulocytes # (auto) 0.04 K/uL (0.01-0.20); Immature Granulocytes % (auto) 0.5 %; Lymphocytes % (auto) 18.7 %; Mean Corpuscular Hemoglobin 30.3 pg (25.0-34.0); Mean Corpuscular Hgb Conc 34.1 g/dL (32.0-36.0); Mean Platelet Volume 10.8 fL (9.4-12.4); Monocytes % (auto) 7.5 %; Neutrophils # (auto) 5.66 K/uL (1.40-6.50); Neutrophils % (auto) 70.4 %; Platelet Count 188 K/uL (130-400); RDW Coefficient of Variation 12.8 % (11.5-14.5); RDW Standard Deviation 41.6 fL (36.4-46.3); Red Blood Count 4.65 M/uL (4.20-5.40); White Blood Count 8.03 K/ul (4.8-10.8)
--- NOTE | 2024-08-15 14:24 | XRay Report ---
XR tibia fibula LT 2V CLINICAL HISTORY: Fall. COMPARISON: Left foot radiographs October 11, 2012. FINDINGS: No proximal left tibial or fibular fractures are present. There is an acute fracture of th e medial malleolus which is displaced 6 mm. There is also an acute oblique mildly displaced distal le ft fibular fracture and a probable acute nondisplaced fracture of the posterior distal left tibia. Th ere is mild medial ankle mortise widening. IMPRESSION: 1. Acute mildly displaced left ankle trimalleolar fracture. 2. Mild medial ankle mortise widening. 3. No proximal left tibial or fibular fracture. ACT 112: Negative or not required by law. Electronically signed by: Godfrey Hernandez M.D. 08/15/2024 2:23 PM
--- NOTE | 2024-08-15 14:25 | XRay Report ---
XR ankle LT min 3V routine CLINICAL HISTORY: fall, deformity COMPARISON: Left foot radiographs October 11, 2012. FINDINGS: There are acute mildly displaced fractures of the distal shaft of the left fibula and the medial malleolus. There is a probable acute nondisplaced fracture of the posterior distal left tibia. Mild medial ankle mortise widening is present. Soft tissue swelling is noted. Left MTP joint fusion is partially imaged. IMPRESSION: Acute mildly displaced left ankle trimalleolar fracture with mild medial ankle mortise wi dening. ACT 112: Negative or not required by law. Electronically signed by: Godfrey Hernandez M.D. 08/15/2024 2:24 PM
[2024-08-15 14:39] LABS: Partial Thromboplastin Ratio 0.8; Partial Thromboplastin Time 22 Seconds (21-31)
--- NOTE | 2024-08-15 14:46 | Emergency Department Note ---
Impression & Plan Closed trimalleolar fracture of left ankle, Fall, Fracture of right foot ED Provider Note NAME: NANETTE CHURCHILL AGE: 78 SEX: F : 1945 ARRIVES VIA: Ambulance INFORMANT: [Patient] ED PROVIDER(S): [Devonte Louise MD] CHIEF COMPLAINT: Trauma HISTORY OF PRESENT ILLNESS: The patient is a 78-year-old female who states a short time ago, she caught her foot on the stairs and fell down 3 stairs injuring both ankles, more so the left. She was not able to ambulate. She was brought for evaluation. Patient is not on blood thinning agents. The patient states she did not injure her head, neck, back, chest or abdomen. Her only complaints involve the ankles, more so the left. The patient is adamant that this fall was mechanical. PMHx/PSHx/Social Hx: See Below PHYSICAL EXAM: Primary Survey Airway: Intact Breathing: Breath sounds equal bilaterally. No respiratory distress Circulation: Skin warm, capillary refill less than 2 seconds Disability: Pupils equal and reactive to light Motor Function: Moves all extremities. Sensory: No deficits Secondary Survey GEN: Well developed and well-nourished HEAD: Normocephalic, atraumatic EYES: Pupils round and reactive to light, conjunctiva clear, extraocular movements intact ENT: No fluid in external acoustic canals, nares patent, oropharynx clear NECK: Midline trachea, no cervical spine tenderness HEART: Regular rate and rhythm LUNGS: Clear to auscultation bilaterally CHEST: Chest wall non-tender, no bruising/deformity ABD: No contusions, soft, non-tender, no distention PELVIS: Stable to rock BACK: No step offs or deformities, T-L spine non tender EXT: Patient has some swelling and abrasion to the right ankle but no deformity. She is tender over these abrasions. There is a contusion forming to the right lateral foot in the area of the fifth metatarsal proximally and she is tender here. The patient has an obvious lateral dislocation of the left ankle. There is tenting of the skin along the medial aspect. Swelling is present. Patient has a strong distal dorsalis pedis pulse on both feet and, she can wiggle the toes of both feet without difficulty. NEURO: No focal motor deficits, no sensory deficits DIFFERENTIAL DIAGNOSIS: Fracture, sprain, strain, dislocation, among others. EMERGENCY DEPARTMENT PROCEDURES: C-spine cleared cleared at the time of my initial evaluation/exam Ankle fracture/dislocation reduction: This procedure was performed by me. Using gentle manipulation I was able to reduce the left ankle dislocation. A splint was applied. No complications with the procedure. Splint Care: After the ortho glass splint was placed by the fish cake maker, I examined the splint and confirmed proper application/placement/position. Neurovascular status was intact both proximal and distal to the splinted area. MEDICAL DECISION MAKING: There is no leukocytosis or concerning anemia. There is a normal platelet count. No coagulopathy. No renal failure or significant electrolyte abnormality. No concerning liver enzyme elevation. No evidence for pancreatitis. Films of the right ankle and foot show a 5th metatarsal fracture. Films of the left leg and ankle show a trimalleolar fracture. Clinically, there was no evidence of injury to the head, neck, back, ribs or abdomen. No upper extremity traumatic findings. The patient had the left ankle fracture/dislocation reduced and splinted as noted above without complication. She was ordered for IV morphine for pain control, to be given as needed. She was ordered for IV Zofran for nausea. I did speak with orthopedics. The patient will require surgical intervention for the left ankle fracture. The right foot fracture should heal with simple measures. Given the patient has had fractures to both lower extremities, she will require a hospital stay as she is currently not able to ambulate. I spoke with the patient and case management. The on-call hospitalist was consulted. Prior/Outside records/notes reviewed: Today's EMS notes describing her presentation and transport of this hospital. Imaging/x-ray results per my interpretation: Right foot and ankle films show a right proximal fifth metatarsal fracture with no significant displacement. Left ankle and tib-fib films show a trimalleolar left ankle fracture. Chronic Medical/Social conditions affecting care: Advanced age. Care/Management discussed with: Orthopedics-Dr. Cantu. Case management and the on-call hospitalist. Level of care consideration(s): After review of the information above and other included data: --I believe the patient requires escalation of care to admission DISPOSITION: Admission Past Med/Surg History Problem List (Updated 08/15/24 @ 17:20 by Devonte Louise MD) Fracture of right foot (Acute) Fall (Acute) Closed trimalleolar fracture of left ankle (Acute) Left trimalleolar fracture Foot fracture, right Paresthesia (Acute) Atypical chest pain (Acute) Nephrolithiasis Right kidney stone SNHL (sensorineural hearing loss) Venom-induced anaphylaxis S/P mastectomy Wrist pain, left (Acute) Fall (Acute) Uses hearing aid (Acute) H/O: section (Acute) Benign positional vertigo (Acute) Medical History Hypertension Surgical History Hx of tonsillectomy H/O breast reconstruction Cataract extraction status Post corneal transplant Family History Father Stroke Family/Other Hearing loss Other No significant family history Social History Smoking Status: Never smoker Second Hand Exposure: No; Do You Dip or Chew Tobacco: No; Hx Alcohol Use: Yes Alcohol type: wine Hx Substance Use: No Preferred Language: Kosovan Communication Ability: Effective Preschool Director Required: No Beliefs That Will Affect Care: None marital status: Current Living Situation: Spouse Current Living Situation Comment: Home with current occupational status: employed Feels Safe at Home: Yes Assistive Devices: Hearing Aid - Bilateral Allergies Allergies Allergy/AdvReac Type Severity Reaction Status Date / Time bee venom protein (honey bee) Allergy Intermediate HIVES/EXTRA Verified 08/15/24 16:30 SWELLING Home Meds Home Medications Medication Instructions Recorded Confirmed biotin 5 mg tablet 5 mg PO QAM 12/08/18 08/15/24 cholecalciferol (vitamin D3) 125 5,000 unit PO QAM 12/08/18 08/15/24 mcg (5,000 unit) tablet (Vitamin D3) vit C 30 mg-s.smith 250 mg-celery 1 cap PO DAILY 09/27/22 08/15/24 seed 75 mg-grape seed extrt capsule (Tart Smith) famotidine 40 mg tablet 40 mg PO HS 11/10/23 08/15/24 sertraline 25 mg tablet 12.5 mg PO HS 11/10/23 08/15/24 loteprednol etabonate 0.5 % eye 1 drp OPB 3XWK 08/15/24 08/15/24 drops,suspension Results & Data (ED) Vital Signs Vital Signs - 24 hr 08/15/24 13:08 08/15/24 13:08 08/15/24 13:08 Temperature 36.6 C 36.6 C 36.6 C Temperature Source Oral Oral Pulse Rate 60 60 Pulse Rate [Apical] 61 Pulse Rhythm Regular Pulse Rhythm [Apical] Regular Pulse Strength Normal Pulse Strength [Apical] Normal Respiratory Rate 14 22 19 Respiratory Effort / Characteristics Non-Labored Spontaneous Non-Labored Spontaneous Respiratory Depth Normal Normal Respiratory Pattern Regular Regular Blood Pressure 187/84 H Blood Pressure [Right Arm] 187/84 H Blood Pressure Mean [Right Arm] 118 Blood Pressure Position [Right Arm] Lying Pulse Oximetry 98 99 98 Oxygen Delivery Method Room Air Room Air Oxygen Flow Rate 0 Sepsis Recent Fever Within 48 Hours No Sepsis New/Unexplained Change in Mental Status No Sepsis Action Taken by Nursing No Action Required 08/15/24 13:08 08/15/24 13:16 08/15/24 13:33 Temperature Temperature Source Pulse Rate 61 Pulse Rate [Apical] 61 Pulse Rhythm Pulse Rhythm [Apical] Pulse Strength Pulse Strength [Apical] Respiratory Rate Respiratory Effort / Characteristics Respiratory Depth Respiratory Pattern Blood Pressure Blood Pressure [Right Arm] Blood Pressure Mean [Right Arm] Blood Pressure Position [Right Arm] Pulse Oximetry 98 Oxygen Delivery Method Room Air Oxygen Flow Rate Sepsis Recent Fever Within 48 Hours Sepsis New/Unexplained Change in Mental Status Sepsis Action Taken by Nursing 08/15/24 14:00 08/15/24 14:52 08/15/24 15:00 Temperature Temperature Source Pulse Rate Pulse Rate [Apical] 62 58 L 58 L Pulse Rhythm Pulse Rhythm [Apical] Pulse Strength Pulse Strength [Apical] Respiratory Rate 19 12 25 H Respiratory Effort / Characteristics Non-Labored Spontaneous Non-Labored Spontaneous Respiratory Depth Normal Normal Respiratory Pattern Blood Pressure Blood Pressure [Right Arm] 189/94 H 186/88 H Blood Pressure Mean [Right Arm] 125 120 Blood Pressure Position [Right Arm] Semi-fowlers Pulse Oximetry 98 100 100 Oxygen Delivery Method Room Air Room Air Room Air Oxygen Flow Rate Sepsis Recent Fever Within 48 Hours Sepsis New/Unexplained Change in Mental Status Sepsis Action Taken by Nursing 08/15/24 16:00 Temperature Temperature Source Pulse Rate Pulse Rate [Apical] 79 Pulse Rhythm Pulse Rhythm [Apical] Pulse Strength Pulse Strength [Apical] Respiratory Rate 23 Respiratory Effort / Characteristics Non-Labored Spontaneous Respiratory Depth Normal Respiratory Pattern Blood Pressure Blood Pressure [Right Arm] 190/110 H Blood Pressure Mean [Right Arm] 136 Blood Pressure Position [Right Arm] Semi-fowlers Pulse Oximetry 99 Oxygen Delivery Method Room Air Oxygen Flow Rate Sepsis Recent Fever Within 48 Hours Sepsis New/Unexplained Change in Mental Status Sepsis Action Taken by Long-Term Medications Current Medication List: was personally reviewed by me Laboratory Data Attestation: I reviewed the patient's lab results. 08/15/24 13:08 08/15/24 13:08 Lab Results 08/15/24 Range/Units 13:08 WBC 8.03 (4.8-10.8) K/ul RBC 4.65 (4.20-5.40) M/uL Hgb 14.1 (12.0-16.0) g/dl Hct 41.4 (37.0-47.0) % MCV 89.0 (80.0-100.0) fL MCH 30.3 (25.0-34.0) pg MCHC 34.1 (32.0-36.0) g/dL RDW Std Deviation 41.6 (36.4-46.3) fL RDW Coeff of Oscar 12.8 (11.5-14.5) % Plt Count 188 (130-400) K/uL MPV 10.8 (9.4-12.4) fL Immature Gran % (Auto) 0.5 % Neut % (Auto) 70.4 % Lymph % (Auto) 18.7 % [place] % (Auto) 7.5 % Eos % (Auto) 2.0 % Baso % (Auto) 0.9 % Neut # (Auto) 5.66 (1.40-6.50) K/uL Lymph # (Auto) 1.50 (1.20-3.40) K/uL [place] # (Auto) 0.60 H (0.11-0.59) K/uL Eos # (Auto) 0.16 (0.00-0.50) K/uL Baso # (Auto) 0.07 (0.00-0.20) K/uL Immature Gran # (Auto) 0.04 (0.01-0.20) K/uL PT 11.0 (9.0-12.0) Seconds INR 1.0 (0.9-1.1) APTT 22 (21-31) Seconds PTT Ratio 0.8 Sodium 138 (136-145) mmol/L Potassium 3.8 (3.5-5.1) mmol/L Chloride 104 (98-107) mmol/L Carbon Dioxide 24 (21-32) mmol/L Anion Gap 10 (3-11) BUN 21 (6-23) mg/dl Creatinine 0.76 (0.6-1.2) mg/dl Est Cr Clr Drug Dosing 70.4 ml/min eGFR 80.16 BUN/Creatinine Ratio 27.6 H (10-20) Glucose 110 H (70-99(Fasting)) mg/dl Calcium 9.7 (8.6-10.3) mg/dl Total Bilirubin 1.2 H (0.2-1.0) mg/dl AST 26 (13-39) U/L ALT 20 (7-52) U/L Alkaline Phosphatase 54 (34-104) U/L Total Protein 6.9 (6.0-8.3) gm/dl Albumin 4.2 (3.4-5.0) gm/dl Globulin 2.7 (2.5-4.0) gm/dl Albumin/Globulin Ratio 1.6 (0.9-2) Lipase 10 L (11-82) U/L Administered Medications Discontinued Medications Morphine Sulfate (Morphine Sulfate 4 Mg/Ml 1 Ml Carp\Vial) 4 mg IV Q30M PRN PRN Reason: Pain Stop: 08/15/24 17:06 Last Admin: 08/15/24 15:49 Dose: 4 mg Documented By: [facility] Imaging Data Radiologist's Impression: Ankle X-Ray 08/15/24 13:33 XR foot RT min 3V routine, XR ankle RT min 3V routine HISTORY: 78 years-old Female fall acute pain of the right foot and ankle status post fall COMPARISON: None TECHNIQUE: 3 views of the right foot with 3 views of the right ankle FINDINGS: FOOT: Demineralized appearance of the bones. Intact cannulated screws fixate the first metatarsal-phalangeal joint. Subtle acute nondisplaced intra-articular fracture involving the base of the fifth metatarsal. Probable additional acute subtle cortical chip fracture of the lateral cortex of the anterior process calcaneus. 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 No additional acute fracture or dislocation identified. IMPRESSION: 1. Acute nondisplaced intra-articular fracture involves the base of the fifth metatarsal. 2. Subacute lateral cortical chip fracture of the anterior process calcaneus. ACT 112: Negative or not required by law. The above report was generated using voice recognition software. It may contain grammatical, syntax or spelling errors. Electronically signed by: Juan Mercer M.D. 08/15/2024 2:50 PM Ankle X-Ray 08/15/24 13:33 XR ankle LT min 3V routine CLINICAL HISTORY: fall, deformity COMPARISON: Left foot radiographs October 11, 2012. FINDINGS: There are acute mildly displaced fractures of the distal shaft of the left fibula and the medial malleolus. There is a probable acute nondisplaced fracture of the posterior distal left tibia. Mild medial ankle mortise widening is present. Soft tissue swelling is noted. Left MTP joint fusion is partially imaged. IMPRESSION: Acute mildly displaced left ankle trimalleolar fracture with mild medial ankle mortise widening. ACT 112: Negative or not required by law. Electronically signed by: Godfrey Hernandez M.D. 08/15/2024 2:24 PM Foot X-Ray 08/15/24 13:33 XR foot RT min 3V routine, XR ankle RT min 3V routine HISTORY: 78 years-old Female fall acute pain of the right foot and ankle status post fall COMPARISON: None TECHNIQUE: 3 views of the right foot with 3 views of the right ankle FINDINGS: FOOT: Demineralized appearance of the bones. Intact cannulated screws fixate the first metatarsal-phalangeal joint. Subtle acute nondisplaced intra-articular fracture involving the base of the fifth metatarsal. Probable additional acute subtle cortical chip fracture of the lateral cortex of the anterior process calcaneus. 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 No additional acute fracture or dislocation identified. IMPRESSION: 1. Acute nondisplaced intra-articular fracture involves the base of the fifth metatarsal. 2. Subacute lateral cortical chip fracture of the anterior process calcaneus. ACT 112: Negative or not required by law. The above report was generated using voice recognition software. It may contain grammatical, syntax or spelling errors. Electronically signed by: Juan Mercer M.D. 08/15/2024 2:50 PM Tibia/Fibula X-Ray 08/15/24 13:33 XR tibia fibula LT 2V CLINICAL HISTORY: Fall. COMPARISON: Left foot radiographs October 11, 2012. FINDINGS: No proximal left tibial or fibular fractures are present. There is an acute fracture of the medial malleolus which is displaced 6 mm. There is also an acute oblique mildly displaced distal left fibular fracture and a probable acute nondisplaced fracture of the posterior distal left tibia. There is mild medial ankle mortise widening. IMPRESSION: 1. Acute mildly displaced left ankle trimalleolar fracture. 2. Mild medial ankle mortise widening. 3. No proximal left tibial or fibular fracture. ACT 112: Negative or not required by law. Electronically signed by: Godfrey Hernandez M.D. 08/15/2024 2:23 PM Discharge Plan Visit Data Chief Complaint: Trauma ED Provider: Devonte Louise Discharge Problem: Closed trimalleolar fracture of left ankle, Fall, Fracture of right foot Patient Disposition: Admitted As Inpatient Condition: Good Forms Stand Alone Forms: My [facility] Prescriptions Prescriptions: No Action biotin 5 mg Tablet 5 mg PO QAM Patient Comments: Patient unsure of strength cholecalciferol (vitamin D3) [Vitamin D3] 5,000 unit Tablet 5,000 unit PO QAM Tart Smith [id number] mg Capsule 1 cap PO DAILY loteprednol etabonate 0.5 % drops,suspension 1 drp OPB 3XWK Rx Instructions: MON, WED & FRI. famotidine 40 mg tablet 40 mg PO HS sertraline 25 mg tablet 12.5 mg PO HS Referrals Referrals: Uma López MD [Primary Care Provider] - Discharge Problem: Closed trimalleolar fracture of left ankle Qualifiers: Encounter type: initial encounter Qualified Code(s): S82.852A - Displaced trimalleolar fracture of left lower leg, initial encounter for closed fracture Fall Qualifiers: Encounter type: initial encounter Qualified Code(s): W19.XXXA - Unspecified fall, initial encounter Fracture of right foot Qualifiers: Encounter type: initial encounter Fracture type: closed Qualified Code(s): S 92.901A - Unspecified fracture of right foot, initial encounter for closed fracture
[2024-08-15 14:49] LABS: Albumin Level 4.2 gm/dl (3.4-5.0); Bilirubin,Total 1.2 mg/dl (0.2-1.0); Calcium 9.7 mg/dl (8.6-10.3); Potassium 3.8 mmol/L (3.5-5.1)
--- NOTE | 2024-08-15 14:51 | XRay Report ---
XR foot RT min 3V routine, XR ankle RT min 3V routine HISTORY: 78 years-old Female fall acute pain of the right foot and ankle status post fall COMPARISON: None TECHNIQUE: 3 views of the right foot with 3 views of the right ankle FINDINGS: FOOT: Demineralized appearance of the bones. Intact cannulated screws fixate the first metatarsal-pha langeal joint. Subtle acute nondisplaced intra-articular fracture involving the base of the fifth met atarsal. Probable additional acute subtle cortical chip fracture of the lateral cortex of the anterio r process calcaneus. 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 No additional acute fracture or dislocation hamzah ntified. IMPRESSION: 1. Acute nondisplaced intra-articular fracture involves the base of the fifth metatarsal. 2. Subacute lateral cortical chip fracture of the anterior process calcaneus. ACT 112: Negative or not required by law. The above report was generated using voice recognition software. It may contain grammatical, syntax o r spelling errors. Electronically signed by: Juan Mercer M.D. 08/15/2024 2:50 PM
[2024-08-15 14:55] LABS: Albumin Globulin Ratio 1.6 (0.9-2); BUN Creatinine Ratio 27.6 (10-20); Creatinine Clr Calc Pharmacy 70.4 ml/min; Globulin 2.7 gm/dl (2.5-4.0); Total Protein 6.9 gm/dl (6.0-8.3)
[2024-08-15] MEDS: MoRPHine SULFATE 4 MG/ML 1 ML CARP\\VIAL IV PRN ×2 (15:49→18:46)
--- NOTE | 2024-08-15 16:51 | History & Physical Report ---
Date of Service August 15, 2024 Assessment & Plan (1) Fall: Plan: 78-year-old female with a mechanical fall when she tripped falling down 3 stairs. She did not have head strike or loss of consciousness. Due to her fall she sustained bilateral foot/ankle fractures. Orthopedics is consulted and following. Do not anticipate operative repair in the next 24 hours while patient is reevaluated and while waiting for swelling to go down, okay to admit with pain control and on a regular diet. Fall Mechanical fall, patient tripped. No presyncopal/syncopal symptoms No head strike, no loss of consciousness. No neck pain. Did not meet trauma other criteria in the ER No blood thinners, no antiplatelet use Bedrest due to bilateral ankle fractures Orthopedics consulted, anticipate operative intervention 08/16 Heart healthy diet. N.p.o. midnight Hypertension improving with pain control. Suspect reactive due to pain, continue multimodal control as noted Zofran available on-call Baseline EKG without ST/T wave abnormalities bundle-branch block or QT prolongation Bilateral ankle fractures Orthopedics consulted. Anticipate waiting for the swelling to go down prior to surgical intervention. Nonweightbearing of the left extremity. Will see in consultation. Okay to add DVT prophylaxis morning of 08/16 appreciate recommendations. Right 5th Metatarsal: Right foot: Acute nondisplaced intra-articular fracture at the base of the fifth metatarsal. Subacute lateral cortical chip fracture of the anterior process calcaneus - LEFT Trimalleolar fracture: XR left tibia/fibula/foot: Acute mildly displaced left ankle trimalleolar fracture. Mild medial ankle mortise widening. No proximal left tibial/fibular fracture. Reduced in the ER Neurovascularly intact on exam Multimodal pain control Tylenol, oxycodone for mild pain able to be treated with p.o. medications, morphine on-call for moderate/severe breakthrough pain. Narcan available on-call for narcosis RCRI 0 points. No further modifiable major risk factors. 30-day perioperati ve risk low, approximately 3.6%. Proceed to operative repair when indicated per surgical team. DVT PPx: Lovenox starting AM 08/16 Disposition: MSO CODE STATUS: Full code Diet: Regular (2) Foot fracture, right: (3) Left trimalleolar fracture: History of Present Illness Primary Care Provider: Uma López MD Yumiko is a 78-year-old female with past medical history of sensorineural hearing loss BPH who fell down the stairs with immediate pain in both ankles left greater than right and he was not able to bear weight or ambulate subsequent to her fall. She fell down 3 stairs and is not on blood thinners. She did not have any syncope/presyncope secondary to her fall, reports that she fell because she tripped. She is not on blood thinners and had a fall down 3 stairs (less than 10 feet), does not meet trauma alert criteria Baseline EKG: Normal sinus rhythm, QTc 422 Tripped over the texture of her stairs. Fell down three steps. No head strike or loss of conciousness. No neck pain. Just finished [facility] PT this past week for chronically shoulder discomfort/tension, other than this no arm/shoulder discomfort. No recent chest pain, chest pressure. No shortness of breath/dyspnea. Has not been sick recently. No fever chills or sweats. Denies any medical history No history of MS/CAD No history of TIA/CVA No history of VTE No history of bleeding problems NO history of diabetes No history of CKD/kidney problems Endorses pepcid for reflux, lotemax eye drops MWF, sertraline very low dose Takes lotemax eye drops since b/l cornea transplants Sx: cornea transplant b/l. Tonsillectomy as a child. 2x sections. History of two bunyon removal surgeries 1x at [facility] [address] Leone. LEFT masectomy and reconstruction. No residual cancer, sx was 25 years ago. Was treated transiently with adjunct cancer. No known recurrence. Medical History: Reviewed Medications: Reviewed. Surgical History: Reviewed Family history: Reviewed Allergies: Reviewed. NKDA. +bee venom allergy Social History: No tobacco product use. Rare social etoh use. No daily etoh use. Code Status:FUll Allergies Allergy/AdvReac Type Severity Reaction Status Date / Time bee venom protein (honey bee) Allergy Intermediate HIVES/EXTRA Verified 08/15/24 16:30 SWELLING Home Medications Medication Instructions Recorded Confirmed Type biotin 5 mg tablet 5 mg PO QAM 12/08/18 08/15/24 History cholecalciferol (vitamin D3) 125 5,000 unit PO QAM 12/08/18 08/15/24 History mcg (5,000 unit) tablet (Vitamin D3) vit C 30 mg-s.smith 250 mg-celery 1 cap PO DAILY 09/27/22 08/15/24 History seed 75 mg-grape seed extrt capsule (Tart Smith) famotidine 40 mg tablet 40 mg PO HS 11/10/23 08/15/24 History sertraline 25 mg tablet 12.5 mg PO HS 11/10/23 08/15/24 History loteprednol etabonate 0.5 % eye 1 drp OPB 3XWK 08/15/24 08/15/24 History drops,suspension Past Med/Surg History Problem List Left trimalleolar fracture Foot fracture, right Paresthesia (Acute) Hypertension (Acute) Atypical chest pain (Acute) Nephrolithiasis Right kidney stone SNHL (sensorineural hearing loss) Venom-induced anaphylaxis S/P mastectomy Wrist pain, left (Acute) Fall (Acute) Uses hearing aid (Acute) H/O: section (Acute) Benign positional vertigo (Acute) Surgical History Hx of tonsillectomy H/O breast reconstruction Cataract extraction status Post corneal transplant Family History Father Stroke Family/Other Hearing loss Other No significant family history Social History Smoking Status: Never smoker Second Hand Exposure: No; Do You Dip or Chew Tobacco: No; Hx Alcohol Use: Yes Alcohol type: wine Hx Substance Use: No Preferred Language: Mongolian Communication Ability: Effective Clinical Physician Assistant Required: No Beliefs That Will Affect Care: None marital status: Current Living Situation: Spouse Current Living Situation Comment: Home with current occupational status: employed Feels Safe at Home: Yes Assistive Devices: Hearing Aid - Bilateral Physical Exam Physical Exam: General: A&Ox3. NAD. Cooperative. HEENT: Atraumatic, normocephalic. Vision/hearing grossly intact. No scalp hematomas/lacerations Pulm: CTAB A&P. -wheezes, -rales, -rhonchi. Symmetrical chest rise. No increased work of breathing. No respiratory distress. Cardiac: RRR, -mrg. Radial pulses intact and symmetrical. Abdominal: Nontender, nondistended, soft. BS present. Ext: RIGHT foot: Mild ankle swelling. DP pulse intact to palpation. Cap refill in the hallux brisk. Sensation to soft touch intact in plantar and dorsal foot. Able to wiggle toes without difficulty. LEFT foot: wrapped in acewrap. Able to wiggle toes. Sensatoin in toes intact. DP pulse intact to palpation. Unable to assess PT. Results & Data Results & Data Vital Signs (Past 12 Hours) Vital Signs Temp Pulse Pulse Resp BP BP Pulse Ox 08/15/24 16:00 79 23 190/110 H 99 08/15/24 15:00 58 L 25 H 186/88 H 100 08/15/24 14:52 58 L 12 189/94 H 100 08/15/24 14:00 62 19 98 08/15/24 13:33 61 08/15/24 13:16 61 08/15/24 13:08 98 08/15/24 13:08 36.6 C 60 19 98 08/15/24 13:08 36.6 C 61 22 187/84 H 99 08/15/24 13:08 36.6 C 60 14 187/84 H 98 O2 Del Method O2 Flow Rate 08/15/24 16:00 Room Air 08/15/24 15:00 Room Air 08/15/24 14:52 Room Air 08/15/24 14:00 Room Air 08/15/24 13:33 08/15/24 13:16 08/15/24 13:08 Room Air 08/15/24 13:08 08/15/24 13:08 Room Air 08/15/24 13:08 Room Air 0 PG Care Time/CCT Total # of Minutes Spent Total Time Spent with Patient: Total time spent is greater than 50% in coordination of care (as documented) at patient's floor/unit and/or counseling patient: Coding Level of Care Code 90655 INT INP/OBS CARE 2/55MIN Diagnoses Fall W19.XXXA Foot fracture, right S92.901A Left trimalleolar fracture S82.854B
[2024-08-15] MEDS ORDERED: MoRPHine SULFATE 2 MG/ML CARP IV PRN (17:06)
[2024-08-15] MEDS ORDERED: ACETAMINOPHEN 325 MG TAB PO PRN (17:06)
[2024-08-15] MEDS ORDERED: NALOXONE HCL 0.4 MG/1 ML VIAL/CARP IV PRN (17:07)
[2024-08-15] MEDS ORDERED: ONDANSETRON INJ 2 MG/ML 2 ML VIAL IV PRN (17:07)
--- NOTE | 2024-08-15 17:24 | Orthopedic Consultation ---
Date of Consultation August 15, 2024 Assessment & Plan (1) Left trimalleolar fracture: Patient was placed into a posterior splint. This is to be kept in place. Ice can be applied with an easy wrap over the anterior aspect of the lower leg. 3 pillows were placed under the left lower extremity for elevation. Patient is to be nonweightbearing on the left lower extremity Medicine will be the admitting providers DVT prophylaxis with oral medications will be started tomorrow Pain control with p.o. or IV medication Patient may eat Advised the patient and her that her ankle fracture/dislocation will require surgical intervention because her ankle is unstable. She understands this. We will continue to evaluate however we did discuss with the patient that most likely we would not be able to do surgery until early next week. (2) Fracture of right foot: Patient may be weightbearing as tolerated on the right lower extremity with the cam boot and the assistance of a walker PT/OT Ice with easy wrap Pain control with p.o. or IV pain medication Will continue to follow while in house History of Present Illness Reason for Consultation: 1. Left ankle trimalleolar fracture 2. Right fifth metatarsal fracture Requesting Physician: Eddie Cantu MD Attending Physician: Eddie Adkins MD History of Present Illness Yumiko is a 78-year-old female with past medical history of sensorineural hearing loss BPH who fell down the stairs with immediate pain in both ankles left greater than right and he was not able to bear weight or ambulate subsequent to her fall. She fell down 3 stairs and is not on blood thinners. She did not have any syncope/presyncope secondary to her fall, reports that she fell because she tripped.Patient denies chest pain, shortness of breath, fever, chills, sweats, numbness in either lower extremity. She denies a history of blood clots. She lives at home with her . Allergies Allergy/AdvReac Type Severity Reaction Status Date / Time bee venom protein (honey bee) Allergy Intermediate HIVES/EXTRA Verified 08/15/24 16:30 SWELLING Home Medications Medication Instructions Recorded Confirmed Type biotin 5 mg tablet 5 mg PO QAM 12/08/18 08/15/24 History cholecalciferol (vitamin D3) 125 5,000 unit PO QAM 12/08/18 08/15/24 History mcg (5,000 unit) tablet (Vitamin D3) vit C 30 mg-s.smith 250 mg-celery 1 cap PO DAILY 09/27/22 08/15/24 History seed 75 mg-grape seed extrt capsule (Tart Smith) famotidine 40 mg tablet 40 mg PO HS 11/10/23 08/15/24 History sertraline 25 mg tablet 12.5 mg PO HS 11/10/23 08/15/24 History loteprednol etabonate 0.5 % eye 1 drp OPB 3XWK 08/15/24 08/15/24 History drops,suspension Patient History Medical History Hypertension Surgical History Hx of tonsillectomy H/O breast reconstruction Cataract extraction status Post corneal transplant Family History Father Stroke Family/Other Hearing loss Other No significant family history Social History Smoking Status: Never smoker Second Hand Exposure: No; Do You Dip or Chew Tobacco: No; Hx Alcohol Use: Yes Alcohol type: wine Hx Substance Use: No Preferred Language: Spanish Communication Ability: Effective Horn Player Required: No Beliefs That Will Affect Care: None marital status: Current Living Situation: Spouse Current Living Situation Comment: Home with current occupational status: employed Feels Safe at Home: Yes Assistive Devices: Hearing Aid - Bilateral Review of Systems Review of Systems: All systems reviewed & are unremarkable except as noted in Subjective Physical Exam Physical Exam: Left lower extremity: Splint that is clean dry and intact and left in place on her left lower extremity. Patient is able to move her digits. She is able to detect light sensation to touch over the pads of all digits. Dorsalis pedis pulses are 2+. Capillary refill is less than 2 seconds. Right lower extremity: Patient has visible edema and tenderness to palpation over the dorsal and lateral aspect of the proximal fifth metatarsal. Patient experiences pain with resisted plantarflexion and dorsiflexion. She has pain with plate resistance applied during external rotation but no pain with internal rotation. She has discomfort with light passive inversion and eversion of her ankle. She has no tenderness of the talus. No tenderness over the medial or lateral malleolus. She is able to detect light sensation to touch of the pads of all digits. She is able to move all digits appropriately. Dorsalis pedis and posterior tibial pulse are 2+. Capillary fill is less than 2 seconds. Patient is neurovascularly intact in both lower extremities. Results & Data Vital Signs (Past 12 Hours) Vital Signs Temp Pulse Pulse Resp BP BP Pulse Ox 08/15/24 17:00 83 22 99 08/15/24 16:00 79 23 190/110 H 99 08/15/24 15:00 58 L 25 H 186/88 H 100 08/15/24 14:52 58 L 12 189/94 H 100 08/15/24 14:00 62 19 98 08/15/24 13:33 61 08/15/24 13:16 61 08/15/24 13:08 98 08/15/24 13:08 36.6 C 60 19 98 08/15/24 13:08 36.6 C 61 22 187/84 H 99 08/15/24 13:08 36.6 C 60 14 187/84 H 98 O2 Del Method O2 Flow Rate 08/15/24 17:00 Room Air 08/15/24 16:00 Room Air 08/15/24 15:00 Room Air 08/15/24 14:52 Room Air 08/15/24 14:00 Room Air 08/15/24 13:33 08/15/24 13:16 08/15/24 13:08 Room Air 08/15/24 13:08 08/15/24 13:08 Room Air 08/15/24 13:08 Room Air 0 Diagnostic Findings Laboratory Results WBC 8.03 K/ul (4.8-10.8) 08/15/24 13:08 RBC 4.65 M/uL (4.20-5.40) 08/15/24 13:08 Hgb 14.1 g/dl (12.0-16.0) 08/15/24 13:08 Hct 41.4 % (37.0-47.0) 08/15/24 13:08 MCV 89.0 fL (80.0-100.0) 08/15/24 13:08 MCH 30.3 pg (25.0-34.0) 08/15/24 13:08 MCHC 34.1 g/dL (32.0-36.0) 08/15/24 13:08 RDW Std Deviation 41.6 fL (36.4-46.3) 08/15/24 13:08 RDW Coeff of Oscar 12.8 % (11.5-14.5) 08/15/24 13:08 Plt Count 188 K/uL (130-400) 08/15/24 13:08 MPV 10.8 fL (9.4-12.4) 08/15/24 13:08 Immature Gran % (Auto) 0.5 % 08/15/24 13:08 Neut % (Auto) 70.4 % 08/15/24 13:08 Lymph % (Auto) 18.7 % 08/15/24 13:08 Boone % (Auto) 7.5 % 08/15/24 13:08 Eos % (Auto) 2.0 % 08/15/24 13:08 Baso % (Auto) 0.9 % 08/15/24 13:08 Neut # (Auto) 5.66 K/uL (1.40-6.50) 08/15/24 13:08 Lymph # (Auto) 1.50 K/uL (1.20-3.40) 08/15/24 13:08 Boone # (Auto) 0.60 K/uL (0.11-0.59) H 08/15/24 13:08 Eos # (Auto) 0.16 K/uL (0.00-0.50) 08/15/24 13:08 Baso # (Auto) 0.07 K/uL (0.00-0.20) 08/15/24 13:08 Immature Gran # (Auto) 0.04 K/uL (0.01-0.20) 08/15/24 13:08 PT 11.0 Seconds (9.0-12.0) 08/15/24 13:08 INR 1.0 (0.9-1.1) 08/15/24 13:08 APTT 22 Seconds (21-31) 08/15/24 13:08 PTT Ratio 0.8 08/15/24 13:08 Sodium 138 mmol/L (136-145) 08/15/24 13:08 Potassium 3.8 mmol/L (3.5-5.1) 08/15/24 13:08 Chloride 104 mmol/L (98-107) 08/15/24 13:08 Carbon Dioxide 24 mmol/L (21-32) 08/15/24 13:08 Anion Gap 10 (3-11) 08/15/24 13:08 BUN 21 mg/dl (6-23) 08/15/24 13:08 Creatinine 0.76 mg/dl (0.6-1.2) 08/15/24 13:08 Est Cr Clr Drug Dosing 70.4 ml/min 08/15/24 13:08 eGFR 80.16 08/15/24 13:08 BUN/Creatinine Ratio 27.6 (10-20) H 08/15/24 13:08 Glucose 110 mg/dl (70-99(Fasting)) H 08/15/24 13:08 Calcium 9.7 mg/dl (8.6-10.3) 08/15/24 13:08 Total Bilirubin 1.2 mg/dl (0.2-1.0) H 08/15/24 13:08 AST 26 U/L (13-39) 08/15/24 13:08 ALT 20 U/L (7-52) 08/15/24 13:08 Alkaline Phosphatase 54 U/L (34-104) 08/15/24 13:08 Total Protein 6.9 gm/dl (6.0-8.3) 08/15/24 13:08 Albumin 4.2 gm/dl (3.4-5.0) 08/15/24 13:08 Globulin 2.7 gm/dl (2.5-4.0) 08/15/24 13:08 Albumin/Globulin Ratio 1.6 (0.9-2) 08/15/24 13:08 Lipase 10 U/L (11-82) L 08/15/24 13:08 Impressions Ankle X-Ray 08/15/24 13:33 XR foot RT min 3V routine, XR ankle RT min 3V routine HISTORY: 78 years-old Female fall acute pain of the right foot and ankle status post fall COMPARISON: None TECHNIQUE: 3 views of the right foot with 3 views of the right ankle FINDINGS: FOOT: Demineralized appearance of the bones. Intact cannulated screws fixate the first metatarsal-phalangeal joint. Subtle acute nondisplaced intra-articular fracture involving the base of the fifth metatarsal. Probable additional acute subtle cortical chip fracture of the lateral cortex of the anterior process calcaneus. 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 No additional acute fracture or dislocation identified. IMPRESSION: 1. Acute nondisplaced intra-articular fracture involves the base of the fifth metatarsal. 2. Subacute lateral cortical chip fracture of the anterior process calcaneus. ACT 112: Negative or not required by law. The above report was generated using voice recognition software. It may contain grammatical, syntax or spelling errors. Electronically signed by: Juan Mercer M.D. 08/15/2024 2:50 PM Foot X-Ray 08/15/24 13:33 XR foot RT min 3V routine, XR ankle RT min 3V routine HISTORY: 78 years-old Female fall acute pain of the right foot and ankle status post fall COMPARISON: None TECHNIQUE: 3 views of the right foot with 3 views of the right ankle FINDINGS: FOOT: Demineralized appearance of the bones. Intact cannulated screws fixate the first metatarsal-phalangeal joint. Subtle acute nondisplaced intra-articular fracture involving the base of the fifth metatarsal. Probable additional acute subtle cortical chip fracture of the lateral cortex of the anterior process calcaneus. 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 No additional acute fracture or dislocation identified. IMPRESSION: 1. Acute nondisplaced intra-articular fracture involves the base of the fifth metatarsal. 2. Subacute lateral cortical chip fracture of the anterior process calcaneus. ACT 112: Negative or not required by law. The above report was generated using voice recognition software. It may contain grammatical, syntax or spelling errors. Electronically signed by: Juan Mercer M.D. 08/15/2024 2:50 PM Tibia/Fibula X-Ray 08/15/24 13:33 XR tibia fibula LT 2V CLINICAL HISTORY: Fall. COMPARISON: Left foot radiographs October 11, 2012. FINDINGS: No proximal left tibial or fibular fractures are present. There is an acute fracture of the medial malleolus which is displaced 6 mm. There is also an acute oblique mildly displaced distal left fibular fracture and a probable acute nondisplaced fracture of the posterior distal left tibia. There is mild medial ankle mortise widening. IMPRESSION: 1. Acute mildly displaced left ankle trimalleolar fracture. 2. Mild medial ankle mortise widening. 3. No proximal left tibial or fibular fracture. ACT 112: Negative or not required by law. Electronically signed by: Godfrey Hernandez M.D. 08/15/2024 2:23 PM (2) Fracture of right foot Encounter type: initial encounter Fracture type: closed Qualified Code(s): S92.901A - Unspecified fracture of right foot, initial encounter for closed fracture
[2024-08-15] MEDS ORDERED: POLYETHYLENE (MIRALAX) 17 GM PACK PO PRN (17:28)
--- OUTSIDE RECORDS SUMMARY | 2024-08-15 20:33 | External Medical Summary | Continuity of Care Document ---
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 Name Role Phone Candy Goodman Primary Care Physician [phone] [id number] Date(s): 06/16/24 - 06/16/24 [facility] [id number] [address] [phone] Encounter Diagnosis AILYN (generalized anxiety disorder)(Discharge Diagnosis) - 06/16/24 Cervical paraspinal muscle spasm(Discharge Diagnosis) - 06/16/24 Discharge Disposition: Home or Self Care Attending Physician: MACY Goodman Kimberly A Encounter Type: Clinic Allergies, Adverse Reactions, Alerts Substance Criticality Severity Reaction Reaction Severity Status Bee stings Active Assessment and Plan Extracted from: Title:Office Visit Note - APSO Author:GALE Goodman Kimberly A Date:06/16/24 1. AILYN (generalized anxiety disorder) STATUS: -Has tried and failed numerous SSRI treatments for one reason or another -Retried the Sertraline and again did not notice improvement -Symptoms are more prominent immediately when she awakens in AM -Improves as day progresses -Her Sleep study was negative for any sleep disorder -Anxiety/depression has increased since her nursing home last year as well as the health of her -Has started to become more active in the community. -Is not going to [employer] regularly. Found the environment not to be beneficial. Is also taking her dog to see if he qualifies for a support animal -Denies any SI/HI. -Was also given Lorazepam for acute anxiety attacks but has not used any DATA: Labs reviewed. GOAL: Maintain stability. PLAN: Cont current monitoring. Patient encouraged to expand her friend base/activities No treatment changes noted today Patient encouraged to refrain from restarting Sertraline 2. Cervical paraspinal muscle spasm STATUS: Chronic condition exacerbated/progressive/side effects of treatment -She recently saw orthopedics to review her cervical spine MRI. -Was prescribed Robaxin and Meloxicam but has only tried the Mobic. -Has noticed that she was getting dizzy with the full dose of Mobic -She has been referred back to PT for evaluation. -She believes it is more from her stress than potential arthritis DATA: Labs reviewed. GOAL: Maintain stability. PLAN: Cont current monitoring. Encouraged patient to start Mobic 1/2 tablet daily and monitor for dizziness Recommend trying Robaxin 750mg, 1/2 tablet at bedtime Care will remain under orthopedics. Immunizations Given and Recorded Vaccine Date Status Refusal Reason SARS-CoV-2 (COVID-19) mRNA BNT-162b2 vax 1 07/08/20 Recorded SARS-CoV-2 (COVID-19) mRNA BNT-162b2 vax 2 06/17/20 Recorded zoster vaccine, inactivated 3 12/28/17 Recorded zoster vaccine live 12/24/10 Recorded 1Result Comment: 2020-11-13: Historical information-source unspecified 2Result Comment: 2020-11-13: Historical information-source unspecified 3Result Comment: 2020-11-13: Historical information-source unspecified Medications biotin Start: 09/16/16 3:36:00 PM EDT, 300 mcg =, PO, Daily Start Date: 09/16/16 Status: Ordered Repeat number: 1 famotidine 40 mg oral tablet Start: 05/01/24 8:26:00 AM EST, 1 tab, PO, Daily, Disp# 90 tab, Refills: 3, Pharmacy: [id number] Start Date: 05/01/24 Status: Ordered Quantity: 90.0 Unit: tab Repeat number: 1 Lotemax Start: 10/07/10 2:47:00 PM EDT, See Instructions, 1 drop both eyes 3 times a week Start Date: 10/07/10 Status: Ordered Repeat number: 1 meloxicam 15 mg oral tablet Start: 05/05/24 2:55:00 PM EST, 1 tab, PO, Daily, Disp# 30 tab, Refills: 1, [id number] Start Date: 05/05/24 Stop Date: 07/04/24 Status: Ordered Quantity: 30.0 Unit: tab Repeat number: 2 Indication: Myalgia, other site meloxicam 15 mg oral tablet Start: 06/02/24 1:20:00 PM EST, 1 tab, PO, Daily, Disp# 30 tab, Refills: 1, please take with food, [id number] Start Date: 06/02/24 Stop Date: 08/01/24 Status: Ordered Quantity: 30.0 Unit: tab Repeat number: 2 Indication: Cervicalgia methocarbamol 750 mg oral tablet Start: 06/02/24 1:20:00 PM EST, 1 tab, PO, tid, Disp# 90 tab, Refills: 1, [id number] Start Date: 06/02/24 Stop Date: 08/01/24 Status: Ordered Quantity: 90.0 Unit: tab Repeat number: 2 Robaxin 500 mg oral tablet Start: 05/05/24 2:53:00 PM EST, 1 tab, PO, q8h, Disp# 90 tab, Refills: 2, for muscle pain, [id number] Start Date: 05/05/24 Stop Date: 08/03/24 Status: Ordered Quantity: 90.0 Unit: tab Repeat number: 3 Indication: Myalgia, other site sertraline 25 mg oral tablet Start: 05/15/24 9:20:00 AM EST, 0.5 tab, PO, Daily, Disp# 15 tab, Refills: 3, Pharmacy: [id number] Start Date: 05/15/24 Status: Ordered Quantity: 15.0 Unit: tab Repeat number: 1 tart acevedo Start: 07/28/21 11:16:00 AM EDT, tart acevedo, for joints Start Date: 07/28/21 Status: Ordered Repeat number: 1 Vitamin D3 1000 intl units oral tablet Start: 10/03/10 2:14:00 PM EDT, 1 tab, PO, Daily, Disp# 100 tab, given to patient Start Date: 10/03/10 Status: Ordered Quantity: 100.0 Unit: tab Repeat number: 1 Mental Status 06/16/24 Barriers to Learning one year Vision imp airment, Other: glasses Mandatory Health Literacy Documentation Yes Health Literacy Communication Barriers N ever Primary Language Palestinian Problem List Condition Confirmation Course Effective Dates Status Health St atus Informant 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 Diagnosis Diagnosis Type Effective Dates Health Status Clinical Service Informant AILYN (generalized anxiety disorder) Discharge Diagnosis 06/16/24 Non-Specified Cervical paraspinal muscle spasm Discharge Diagnosis 06/16/24 Non-Specified Procedures Procedure Date Related Diagnosis Body Site Status Colonoscopy 1, 2 11/07/20 Complete d Endoscopy 3 11/07/20 Completed Esophagogastroduodenoscopy 4, 5 11/07/20 Completed Left foot 6 06/16/20 Completed Audiometry 7 09/26/19 Completed Ectropion correction 8 09/02/18 Co mpleted Surgery care 9 09/02/[address] of abdomen 10 10/12/16 Complete d Ultrasound scan of lower abdomen 11 10/05/16 Completed Colonoscopy 12, 13 03/18/16 Comple krystle Bone scan 14 08/06/99 Completed Completed CEIOL - Cataract extraction and insertion of intraocular lens 15 Completed CEIOL - Cataract extraction and insertion of intraocular lens 16 Completed cornea transplant 17 Comp leted foot 18 Completed mastectomy with breast reconstruction Completed T & A Completed 1COLO to cecum HD polyp 3 mm CS, 2 mm sigmoid polyp CF. 2Pathology showed 2 tubular adenomas. Repeat in 5 years 3IMPRESSION: Z-line, regular, 42cm from the incisors Normal esophagus Erythematous mucosa in the antrum Biopsied Normal second portion of the duodenum. Biopsied The examination was otherwise normal 4EGD 2nd duod nl bx, antral erythema bx 5H. pylori was negative on path report. F/U as needed. 6left great toe nail removed done [place] Dr Cormier 7A mild to sloping to severe SNHL bilaterally. Word recognition scores were excellent bilaterally. 8Left lower lid 9NLDO LE 101. Fatty infiltration of the liver. 2. No biliary ductal diatation status post cholecystectomy. 3. No acute process within the abdomen. 11No acute sonographic abnormality is identified noting status post cholecystectomy Hepatomegaly and hepatic steatosis 12Biopsy: 1 hyperplastic/inflammatory poly and 1 tubular adenoma. Repeat in 5 years. 13One 3 mm polyp in the ascendig colon. One 3 mm polyp in the rectum. Diverticulosis in the sigmoid colon. Await pathology results. 14No definite bony metastatic disease. Mildly increased tracer activity left parasagittally in the mid lumbar spine and mid dextroscoliosis, likely on the basis degenerative arthritic change. Increasedtracer activity about the left knee and proximal fibula and both first metatarsal phalangeal joints, right greater than left, likely degenerative arthritic in etiology. 15LE 16RE 17BE 18surgery joint replacement Vital Signs Most recent to oldest [Reference Range]: 1 Heart Rate 71 bpm (06/16/24 11:29 AM) Respiratory Rate 17 br/min (06/16/24 11:29 AM) Blood Pressure 162/102mmHg (06/16/24 11:29 AM) Cuff Pulse Pressure 60 mmHg (06/16/24 11:29 AM) Social History Social History Type Response Smoking Status Never smoked cigaret xiomara Sex Female Sex Representation Female (finding) [facility] Outpt Note * MACY Goodman, Candy Pastrana: PERFORM Event Display: [facility] Outpt Note Authored Date: [id number] Assessment/Plan 1. AILYN (generalized anxiety disorder) STATUS: -Has tried and failed numerous SSRI treatments for one reason or another -Retried the Sertraline and again did not notice improvement -Symptoms are more prominent immediately when she awakens in AM -Improves as day progresses -Her Sleep study was negative for any sleep disorder -Anxiety/depression has increased since her nursing home last year as well as the health of her -Has started to become more active in the community. -Is not going to [employer] regularly. Found the environment not to be beneficial. Is also taking her dog to see if he qualifies for a support animal -Denies any SI/HI. -Was also given Lorazepam for acute anxiety attacks but has not used any DATA: Labs reviewed. GOAL: Maintain stability. PLAN: Cont current monitoring. Patient encouraged to expand her friend base/activities No treatment changes noted today Patient encouraged to refrain from restarting Sertraline 2. Cervical paraspinal muscle spasm STATUS: Chronic condition exacerbated/progressive/side effects of treatment -She recently saw orthopedics to review her cervical spine MRI. -Was prescribed Robaxin and Meloxicam but has only tried the Mobic. -Has noticed that she was getting dizzy with the full dose of Mobic -She has been referred back to PT for evaluation. -She believes it is more from her stress than potential arthritis DATA: Labs reviewed. GOAL: Maintain stability. PLAN: Cont current monitoring. Encouraged patient to start Mobic 1/2 tablet daily and monitor for dizziness Recommend trying Robaxin 750mg, 1/2 tablet at bedtime Care will remain under orthopedics. Chief Complaint 1 mon f/u pain. History of Present Illness Patient is a 78yo female presenting for one month appt. Neck pain: -She recently saw orthopedics to review her cervical spine MRI. -Was prescribed Robaxin and Meloxicam but has only tried the Mobic. -Has noticed that she was getting dizzy with the full dose of Mobic -She has been referred back to PT for evaluation. -She believes it is more from her stress than potential arthritis Anxiety: -She is still having much difficulty sleeping with her mind racing -She is aware that nursing home has played a significant role in her anxieties. Review of Systems ROS per HPI Physical Exam Vitals & Measurements HR: 71 (Monitored) RR: 17 BP: 162/102 SpO2: 98% PHQ2 Data (Data Documented on:06/16/2024 11:24) Emotional health assessment NEGATIVE GENERAL: _No acute distress. Well developed and well nourished. Vital signs reviewed as above. EYES: _EOMI. Anicteric sclerae. HENT: _Moist mucous membranes. RESPIRATORY: _Unlabored respirations. No conversational dyspnea. EXTREMITIES: _No gross deformities. SKIN: _Warm, dry. NEUROLOGIC: _Alert and oriented. Normal speech. No gross focal neurological deficits. PSYCHIATRIC: _Cooperative. Appropriate mood and affect. 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 Procedure/Surgical History •Endoscopy| Service Date: 11/07/2020•Colonoscopy| Service Date: 11/07/2020•Esophagogastroduodenoscopy| Service Date: 11/07/2020•Left foot| Service Date: 06/16/2020•Audiometry| Service Date:09/26/2019•Surgery care| Service Date: 09/02/2018•Ectropion correction| Service Date: 09/02/2018•CT of abdomen| Service Date: 10/12/2016•Ultrasound scan of lower abdomen| Service Date: 10/05/2016•Colonoscopy| Service Date: 03/18/2016•Bone scan| Service Date: 08/06/1999•mastectomy withbreast reconstruction cornea transplant T & A foot CEIOL - Cataract extraction and insertion of intraocular lens•CEIOL - Cataract extraction and insertion of intraocular lens Medications biotin, 300 mcg, PO, Daily cholecalciferol(Vitamin D3 1000 intl units oral tablet), 1000 Int_Unit= 1 tab, PO, Daily famotidine(famotidine 40 mg oral tablet), 1 tab, PO, Daily loteprednol ophthalmic(Lotemax), See Instructions meloxicam(meloxicam 15 mg oral tablet), 15 mg= 1 tab, PO, Daily, 1 refills meloxicam(meloxicam 15 mg oral tablet), 15 mg= 1 tab, PO, Daily, 1 refills methocarbamol(Robaxin 500 mg oral tablet), 500 mg= 1 tab, PO, q8h, 2 refills methocarbamol(methocarbamol 750 mg oral tablet), 750 mg= 1 tab, PO, tid, 1 refills sertraline(sertraline 25 mg oral tablet), 0.5 tab, PO, Daily unknown medication(tart acevedo) Allergies Bee stings Social History Smoking Status Never smoked cigarettes Alcohol - Denies Alcohol Use Employment/School Status:Employed Exercise - Regular exercise Exercise type:Aerobics, Weight lifting Home/Environment - No Risk Substance Abuse - Denies Substance Abuse Tobacco - Denies Tobacco Use Use:Never smoker Intake (IView) Smoking History Cigarette smoker: Never smoked cigarettes Tobacco Product Use: Never used other tobacco products Family History Alzheimer disease: Mother. Heart attack: Father. Osteoarthritis: Mother. Stroke: Father. Health Status Family Member(s) Immunizations Vaccine Date Status SARS-CoV-2 (COVID-19) mRNA BNT-162b2 vax 07/08/2020 Recorded Comments : 2020-11-13: Historical information-source unspecified SARS-CoV-2 (COVID-19) mRNA BNT-162b2 vax 06/17/2020 Recorded Comments : 2020-11-13: Historical information-source unspecified zoster vaccine, inactivated 12/28/2017 Recorded Comments : 2020-11-13: Historical information-source unspecified zoster vaccine live 12/24/2010 Recorded Recommendations Health Maintenance Pending (in the next year) OverDue Medicare Annual Wellness Visit due 02/26/23 and every 1 year Adult Influenza Vaccine due 10/18/23 and every 1 year Due Adult Social Determinants of Health Screening due 06/16/24 Unknown Frequency Falls Plan of Care due 06/16/24 Unknown Frequency Hepatitis C Screening due 06/16/24 One-time only Pneumococcal Vaccine Older Adults due 06/16/24 One-time only Shingles Vaccine due 06/16/24 One-time only Due In Future Body Mass Index not due until 05/10/25 and every 366 day Satisfied (in the past 1 year) Satisfied Body Mass Index on 05/09/24. Satisfied by SANTIAGO Ratliff [facility] Breast Cancer Screening on 08/10/23. 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 Insurance Providers Guarantor name: NANETTE Liriano ZHAO Health Plan Information #: 1 Payer: [employer] PPO Member Number: [id number] Policy Number: NA Group Number: [id number] Health Plan Information #: 2 Payer: [employer] P[employer] Member Number: [id number] Policy Number: NA Group Number: [id number]"
--- OUTSIDE RECORDS SUMMARY | 2024-08-15 20:33 | External Medical Summary | Continuity of Care Document ---
Author Name Unknown Organization [facility] [id number] [place] [id number] Address [address] [place] [id number] Care Team Providers Care Regional Marketing Director Name Role Phone Candy Goodman Zeina Primary Care Physician [phone] Encounter [facility] [id number] Date(s): 06/02/24 - 06/02/24 [facility] [address] [place] [id number] [place] [id number] Encounter Diagnosis Neck pain(Discharge Diagnosis) - 06/02/24 Carpal tunnel syndrome, left(Discharge Diagnosis) - 06/02/24 Discharge Disposition: Home or Self Care Attending Physician: DO Hardwick Jina Encounter Type: Clinic Allergies, Adverse Reactions, Alerts Substance Criticality Severity Reaction Reaction Severity Status Bee stings Active Assessment and Plan Extracted from: Title:Follow Up Visit, neck pain Author:Chidi Hardwick Jina Date:06/02/24 1. Bilateral Neck Pain radiating into bilateral posterior shoulders Likely Cervical Facet-mediated Pain given pain with ipsilateral oblique extension, tenderness over facet joints, facet arthropathy seen on diagnostic imaging (referred pain matches the C4, C5 and C5-C6 facet referral pattern) Likely concomitant Myofascial Pain given pain reproduced with muscular stretch, tenderness to palpation 2. Left Hand Paresthesias Likely median nerve impingement in the wrist/ Carpal tunnel syndrome given abnormal sensation on titus aspect of digits 1 and 2, positive phalens test and EMG report Possibly Ulnar Neuropathy given weak hand intrinsics seen on exam and abnormal sensation of titus aspect of fifth digit Less likely cervical radiculopathy given negative Spurling's, EMG report PLAN: Diagnostics: None at this time Injections: None at this time The patient is a candidate for cervical medial branch blocks however we discussed that she will likely need to go to [place] for these injections. She would like to defer at this time. _Patient is a candidate for trigger point injections but she would like to defer at this time _ Patient may be a candidate for median nerve hydrodissection of the median nerve if bracing fails _ Medications: The patient was educated about medication risks and benefits, Prescription(s) given for, meloxicam 15 mg PO QD with food #7, Robaxin (Methocarbamol) 750 mg TID-QID PRN #60 _ Modalities: None at this time Orthotics:/DME Wrist cock up splint provided for the patient's left carpal tunnel syndrome Therapeutic exercise: Restart PT to focus on facet pain Education: A lengthy discussion was held with the patient regarding their diagnosis and prognosis. We discussed workup and treatment strategies including physical therapy, pharmacologic management, injections, and surgery The patient s questions were sought and answered satisfactorily. Other: Reviewed prior notes from : PCP Follow-up visit: Scheduled for: follow up to coincide with completion of, physical therapy and will discuss effects of Robaxin, meloxicam. If patient has not improved I would encourage her to trial trigger point injections versus facet injections. Advised patient to seek urgent medical attention if they develop new onset progressive weakness and/or bowel/bladder dysfunction Jessica Hardwick, DO Sports Medicine and Interventional Spine Physical Medicine & Rehabilitation Total time on the date of the encounter which includes both the khiu-jv-disn and fbp-kqny-to-face time personally spent by the physician and/or other qualified health behavioral health care manager(s) on the day of the encounter consisting of a total of 30 minutes (F/U -level 4) including Medical Decision Making, preparing to see the patient (eg, review of tests), obtaining and/or reviewing separately obtained history, performing a medically appropriate examination and/or evaluation, counseling and educating the patient/family/caregiver, ordering medications, tests, or procedures ,referring and communicating with other health primary health care nurse, documenting clinical information in the electronic or other health record, independently interpreting results (not separately reported) and communicating results to the patient/ family/caregiver, care coordination Immunizations Given and Recorded Vaccine Date Status [...] Daily, Disp# 90 tab, Refills: 3, Pharmacy: [facility] [id number] Start Date: 05/01/24 Status: Ordered Quantity: 90.0 Unit: tab Repeat number: 1 Lotemax Start: 10/07/10 2:47:00 PM EDT, See Instructions, 1 drop both eyes 3 times a week Start Date: 10/07/10 Status: Ordered Repeat number: 1 meloxicam 15 mg oral tablet Start: 05/05/24 2:55:00 PM EST, 1 tab, PO, Daily, Disp# 30 tab, Refills: 1, Pharmacy: [facility] #[id number] Start Date: 05/05/24 Stop Date: 07/04/24 Status: Ordered Quantity: 30.0 Unit: tab Repeat number: 2 Indication: Myalgia, other site meloxicam 15 mg oral tablet Start: 06/02/24 1:20:00 PM EST, 1 tab, PO, Daily, Disp# 30 tab, Refills: 1, please take with food, [id number] Start Date: 06/02/24 Stop Date: 08/01/24 Status: Ordered Quantity: 30.0 Unit: tab Repeat number: 2 Indication: Cervicalgia methocarbamol 750 mg oral tablet Start: 06/02/24 1:20:00 PM EST, 1 tab, PO, tid, Disp# 90 tab, Refills: 1, Pharmacy: [facility]/pharmacy #[id number] Start Date: 06/02/24 Stop Date: 08/01/24 Status: Ordered Quantity: 90.0 Unit: tab Repeat number: 2 Robaxin 500 mg oral tablet Start: 05/05/24 2:53:00 PM EST, 1 tab, PO, q8h, Disp# 90 tab, Refills: 2, for muscle pain, Pharmacy:[facility]/pharmacy #[id number] Start Date: 05/05/24 Stop Date: 08/03/24 Status: Ordered Quantity: 90.0 Unit: tab Repeat number: 3 Indication: Myalgia, other site sertraline 25 mg oral tablet Start: 05/15/24 9:20:00 AM EST, 0.5 tab, PO, Daily, Disp# 15 tab, Refills: 3, Pharmacy: [id number] Start Date: 05/15/24 Status: Ordered Quantity: 15.0 [...] Unit: tab Repeat number: 1 Mental Status 06/02/24 Barriers to Learning one year Vision imp airment, Other: glasses Mandatory Health Literacy Documentation Yes Health Literacy Communication Barriers N ever Primary Language Kazakh Problem List Condition Confirmation Course Effective Dates [...] Diagnosis Diagnosis Type Effective Dates Health Status inical Service Informant Neck pain Discharge Diagnosis 06/02/24 Non-Specified Carpal tunnel syndrome, left Discharge Diagnosis 06/02/24 Non-Specified Procedures Procedure Date Related Diagnosis Body [...] 6left great toe nail [place]ormier 7A mild to sloping to [...] etiology. 15LE 16RE 17BE 18surgery joint replacement Social History Social History Type Response Smoking Status Never smoked cigaret xiomara Sex Female Sex Representation Female (finding) Ortho Outpt Note * DO Hardwick Jina: PERFORM, MODIFY, MODIFY Event Display: Ortho Outpt Note Authored Date: [id number] Chief Complaint Shoulder/ neck pain Primary Care Provider MACY Goodman Kimberly A Subjective Follow up Interval History Patient is seen in follow-up after MRI. She reports she has not been able to fully trial the meloxicam, Robaxin and the carpal tunnel splint. She would like to retry the meloxicam and Robaxin and get a carpal tunnel splint brace from us. Continues to have bilateral neck pain that radiates into her bilateral posterior shoulders. We discussed that the physical therapy she did in the past was mostly massage and stretching and not necessarily focused on her facet pain. She would like to retry PT to focus on her facet pain. Patient feels that a lot of her pain is due to stress and poor posture. Massage is very helpful. Denies new onset of focal weakness or bowel/bladder dysfunction. Denies other changes in medical history since last visit. Summary from initial eval: Chief Complaint: Nanette Churchill is a 78 year old Female who presents with bilateral neck and bilateral shoulder pain. Also having numbness in the left hand. Symptom: Pain, Numbness, Paresthesias History of Present Illness: • Onset: about a year ago after an increase in life stress • Prior trauma / injury/ surgery of the affected area(s): denies • Duration / Timing of Symptoms: Constant o Pain has been stable since onset • Characteristic of Symptoms: sore, o Associated Neuropathic Symptoms: _, dropping objects with left hand, numbness in left hand (digits, 1, 2 and 5) numbness is worse in the morning, better with heat o Associated Mechanical Joint Symptoms: denies • Alleviating Factors: leaning back • Aggravating Factors: leaning forward in a slouched position, watching tv. moving the neck side to side • Spine or Limb Pain Worse: Spine pain is greater than limb pain • Treatments Tried: o Medications: Current: Ibuprofen, Previous: _none o Therapeutic Exercise: physical therapy about 2 weeks ago [address] [facility] which was massage and stretching o Injections: none o Other: heat, massage, continuum of care manager silver sneakers which has helped • Functional Status: o Work Status: retired from working at [employer] but she is interviewing foranother job o ADLs: denies • Previous Work-Up: _ saw Dr. Jackson and Dr. Asif and a neurologist. 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 She also reports that her granddaughter is actively fighting breast cancer and will be undergoing a double mastectomy and intense treatment. Objective Physical Exam General: Alert and oriented. Patient in no apparent distress. Psych: Affect normal and appropriate. HEENT: Head normocephalic and atraumatic. Neck is supple. Chest: Breathing is non-labored. Skin: There are no gross skin lesions. Gait: Heel and toe walking are intact Cervical Spine: Inspection: Skin intact. AROM: FROM with pain Pain with, at end range of extension, with ipsilateral oblique extension (facet joint loading) ( pain over the lower facets bilaterally). She feels some tension in her back with cervical flexion and bilateral sidebending Palpation: Tenderness over, Bilateral, paraspinal muscles/facet joints, Upper Trapezius, LevatorScapulae muscles Neuro: Sensation: Intact throughout bilateral upper limbs, except for the following:, Decreased at thepalmer side of digits 1,2 and 5 Strength: 5/5 throughout bilateral upper limbs, except for the followin+/5 left hand intrinsics DTRs: 2+ throughout bilateral upper limbs Tests for cervical radiculopathy/myelopathy: Spurling's sign (for radicular symptoms): Negative, bilaterally Long tract signs (UMN signs): Kyler's reflex, Negative At initial visit: Bilateral Shoulders: Inspection: Skin intact. AROM: FROM without painover the shoulder joint Palpation: No tenderness _ Anterior Shoulder, AC Joint, Proximal Biceps, Lateral shoulder Sensation: Intact. Strength: 5/5 throughout Impingement signs: Empty Can (Torres's): Negative Blanco - Ovidio (coracoacromial arch impingement): Negative Neer (acromion impingement): Negative Rotator Cuff Tear: Drop Arm (supraspinatus): Negative ER Lag sign (infraspinatus): Negative AC joint stress maneuvers: Crossed Adduction ("scarf") Sign: Negative Resisted Extension Test: Negative Labrum: [place] test: Negative Crank Test Negative Diagnostic Results RECENT PERTINENT STUDIES Cervical MRI without contrast 05/2024 Findings: Unremarkable posterior fossa structures with normal signal within the cervical and imaged upper thoracic spinal cord. Normal bone marrow signal. No epidural or paraspinal fluid collections. C2-C3: Mild intervertebral disc space narrowing with uncal vertebral hypertrophy and small posterior annular disc bulge. Mild to moderate facet arthrosis with trace left facet effusion. No central canal or foraminal narrowing. C3-C4: Mild to moderate intervertebral disc space narrowing with anterior osteophytes. Uncovertebral hypertrophy with tiny posterior annular disc bulge and moderate facet arthrosis. Central canalis patent. Mild right with mild to moderate left foraminal narrowing. C4-C5: Moderate to severe intervertebral disc space narrowing. Circumferential disc osteophyte complex with moderate facet arthrosis. Slight deformity upon the ventral cervical spinal cord. AP dimensions of the thecal sac measuring 9 mm without significant central canal stenosis. Mild left with mild to moderate right foraminal narrowing. C5-C6: Moderate intervertebral disc space narrowing with circumferential disc osteophyte complex and moderate facet arthrosis. Flattening of the ventral thecal sac without significant central canalstenosis. Mild left with mild to moderate right foraminal narrowing. C6-C7: Mild intervertebral disc space narrowing with uncovertebral hypertrophy and posterior annular disc bulge which is eccentric to the left paracentral/left lateral recess distribution 9 mm AP dimension of the thecal sac. Slight deformity upon the ventral cervical spinal cord. Moderate facetarthrosis. Mild bilateral foraminal narrowing. C7-T1: Moderate to severe facet arthrosis. Mild left foraminal narrowing. The central canal andright neuroforamen are patent. Impression: 1. 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 2. No high-grade central canal stenosis. 3. Normal signal within the cervical spinal cord Cervical X ray 02/2024 Exam: CERVICAL SPINE FINDINGS: There is straightening of the normal cervical lordosis, possibly secondary to muscle spasm. Cervical height and alignment otherwise appear normal. C4-C5 and C5-C6 disc space narrowing.Uncovertebral degenerative changes. No listhesis with flexion or extension. No osseous lesions or levels suspicious for fracture are seen. There is no evidence of prevertebal soft tissue swelling. IMPRESSION: Straightening of the normal cervical lordosis, possibly secondary to muscle spasm. Mild degenerative change without acute osseous abnormality of the cervical spine. No dynamic instability. No significant interval change. Cervical X ray 2021 FINDINGS: Multilevel intervertebral disc space narrowing, severe at C4-C5 and C5-C6 with moderate associated spondylitic spurring and moderate multilevel facet arthrosis. No acute fracture, subluxation or endplate erosion. Straightening of the normal cervical lordosis. Unerupted bilateral third mandibular molars. IMPRESSION: 1. No acute fracture or subluxation. 2. Degenerative changes as above. EMG/NCS: possibly left carpal tunnel syndrome ( 2023) Assessment/Plan 1. Bilateral Neck Pain radiating into bilateral posterior shoulders Likely Cervical Facet-mediated Pain given pain with ipsilateral oblique extension, tenderness over facet joints, facet arthropathy seen on diagnostic imaging (referred pain matchesthe C4, C5 and C5-C6 facet referral pattern) Likely concomitant Myofascial Pain given pain reproduced with muscular stretch,tenderness to palpation 2. Left Hand Paresthesias Likely median nerve impingement in the wrist/ Carpal tunnel syndrome given abnormal sensation on titus aspect of digits 1 and 2, positive phalens test and EMG report Possibly Ulnar Neuropathy given weak hand intrinsics seen on exam and abnormal sensation of titus aspect of fifth digit Less likely cervical radiculopathy given negative Spurling's, EMG report PLAN: Diagnostics: None at this time Injections: None at this time The patient is a candidate for cervical medial branch blocks however we discussed that shewill likely need to go to [place] for these injections. She would like to defer at this time. _Patient is a candidate for trigger point injections but she would like to defer at thistime _ Patient may be a candidate for median nerve hydrodissection of the median nerve if bracing fails _ Medications: The patient was educated about medication risks and benefits, Prescription(s) given for, meloxicam 15 mg PO QD with food #7, Robaxin (Methocarbamol) 750 mg TID-QID PRN #60 _ Modalities: None at this time Orthotics:/DME Wrist cock up splint provided for the patient's left carpal tunnel syndrome Therapeutic exercise: Restart PT to focus on facet pain Education: A lengthy discussion was held with the patient regarding their diagnosis and prognosis. We discussed workup and treatment strategies including physical therapy, pharmacologic management, injections, and surgery The patient’s questions were sought and answered satisfactorily. Other: Reviewed prior notes from : PCP Follow-up visit: Scheduled for: follow up to coincide with completion of, physical therapy and will discuss effects of Robaxin, meloxicam. If patient has not improved I would encourage her to trial trigger point injections versus facet injections. Advised patient to seek urgent medical attention if they develop new onset progressive weakness and/or bowel/bladder dysfunction Jessica Hardwick DO Sports Medicine and Interventional Spine Physical Medicine & Rehabilitation Total time on the date of the encounter which includes both the wyqf-li-ldrh and mfv-zhnk-ia-face time personally spent by the physician and/or other qualified health behavioral health care manager(s) on the day of the encounter consisting of a total of 30 minutes (F/U -level 4) including Medical Decision Making, preparing to see the patient (eg, review of tests), obtaining and/or reviewing separately obtained history, performing a medically appropriate examination and/or evaluation, counseling and educating the patient/family/caregiver, ordering medications, tests, or procedures ,referring and communicating with other health primary health care nurse, documenting clinical information in the electronic or other health record, independently interpreting results (not separately reported) and communicating results to the patient/ family/caregiver, care coordination [1] Follow Up Visit, neck pain; DO Hardwick Jina 05/05/2024 14:36 EST Electronic Signature on File Electronically Reviewed/Signed by: Jessica Hardwick DO Author Signature Dt/Tm:06/02/2024 02:20 PM Division of Sports Medicine J[facility] Patient Care team information Care Team Personnel Name: MACY Goodman Kimberly A Position: Physician Asst Guillen - Family Med Member Role: Primary Care Provider Address: [address] [facility] [address] [place] [address] [employer]ise[employer]: [phone] Name: Jessie Ferrell 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
--- OUTSIDE RECORDS SUMMARY | 2024-08-15 20:33 | External Medical Summary | Continuity of Care Document ---
Author Name Unknown Organization [place] [id number] Address [address] [place] [id number] Care Team Providers Care Councilman Name Role Phone Candy Goodman Zeina Primary Care Physician [phone] Encounter [facility] [id number] Date(s): 07/25/24 - 07/25/24 [facility] [address] [place] [id number] [place] [id number] Encounter Diagnosis Cervical facet syndrome(Discharge Diagnosis) - 07/25/24 Discharge Disposition: Home or Self Care Attending Physician: DO Hardwick Jina Encounter Type: Clinic Allergies, Adverse Reactions, Alerts Substance Criticality Severity Reaction Reaction Severity Status Bee stings Active Immunizations Given and Recorded Vaccine Date Status [...] Daily, Disp# 90 tab, Refills: 3, Pharmacy: [id number] Start Date: 05/01/24 Status: Ordered Quantity: 90.0 Unit: tab Repeat number: 1 Lotemax Start: 10/07/10 2:47:00 PM EDT, See Instructions, 1 drop both eyes 3 times a week Start Date: 10/07/10 Status: Ordered Repeat number: 1 methocarbamol 750 mg oral tablet Start: 06/02/24 1:20:00 PM EST, 1 tab, PO, tid, Disp# 90 tab, Refills: 1, Pharmacy: [facility]/pharmacy #[id number] Start Date: 06/02/24 Stop Date: 08/01/24 Status: Ordered Quantity: 90.0 Unit: tab Repeat number: 2 sertraline 25 mg oral tablet Start: 05/15/24 9:20:00 AM EST, 0.5 tab, PO, Daily, Disp# 15 tab, Refills: 3, Pharmacy: [id number] Start Date: 05/15/24 Status: Ordered Quantity: 15.0 [...] Unit: tab Repeat number: 1 Mental Status 07/25/24 Barriers to Learning one year Vision imp airment, Other: glasses Mandatory Health Literacy Documentation Yes Health Literacy Communication Barriers N ever Primary Language Maori Problem List Condition Confirmation Course Effective Dates [...] Diagnosis Diagnosis Type Effective Dates Health Status Cl inical Service Informant Cervical facet syndrome Discharge Diagnosis 07/25/24 Non-Specified Procedures Procedure Date Related Diagnosis Body [...] 6left great toe nail removed done in [place] Dr Cormier 7A mild to sloping to [...] Female (finding) Ortho Outpt Note * DO Mulu Jessica: MODIFY, PERFORM Event Display: Ortho Outpt Note Authored Date: [id number] Chief Complaint FU neck pain. Pt states her neck and shoulders bilaterally hurt and gets numbness down her left hand. Pt did PT and states it helped. Primary Care Provider MACY Goodman Kimberly A Subjective Follow up- Bilateral Neck Pain radiating into bilateral posterior shoulders Interval History PT is going better. Has not had to use heat every night. Robaxin made her too tired Tylenol has been working well. She stopped the meloxicam as well Carpal tunnel splint is bulky but she does notice that it helps the numbness in her hand Patient feels that a lot of her pain is due to stress and poor posture. Massage is very helpful. Denies new onset of focal weakness or bowel/bladder dysfunction. Denies other changes in medical history since last visit. Recent pertinent studies: Cervical MRI Impression: 1. 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 2. No high-grade central canal stenosis. 3. 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 Central canal is patent. Mild right with mild to moderate [...] the ventral thecal sac without significant central canal stenosis. Mild left with mild to moderate right foraminal narrowing. C6-C7: Mild intervertebral disc space narrowing with uncovertebral hypertrophy and posterior annular disc bulge which is eccentric to the left paracentral/left lateral recess distribution 9 mm APdimension of the thecal sac. Slight deformity upon the ventral cervical spinal cord. Moderate facet arthrosis. Mild bilateral foraminal narrowing. C7-T1: Moderate to severe facet arthrosis. Mild left foraminal narrowing. The central [place] right neuroforamen are patent. Impression: 1. Discogenic degeneration [...] Bilateral Neck Pain radiating into bilateral posterior shoulders- improving Likely Cervical Facet-mediated Pain given pain with [...] that shewill likely need to go to [facility] for these injections. She would like to defer at this time. _Patient is a candidate for trigger point injections but she would like to defer at thistime _ Patient may be a candidate for median nerve hydrodissection of the median nerve if bracing fails but she would like to defer those injections at this time _ Medications: Patient has stopped robaxin and would like to defer muscle relaxers at this time _ Modalities: None at this time Orthotics:/DME continue night time Wrist cock up splint provided for the patient's left carpal tunnel syndrome Therapeutic exercise: continue PT Education: A lengthy discussion was held with the patient regarding their diagnosis and prognosis. We discussed workup and treatment strategies including physical therapy, pharmacologic management, injections, and surgery The patient’s questions were sought and answered satisfactorily. Other: Reviewed prior notes from : PT and PCP Follow-up visit: Patient is happy with the progress of her PT thus far and would like to follow-up as needed. She is aware that next steps would be cervical injections, likely medial branch blocks, as well as muscle relaxers or trigger points. She would like to defer further invention at thistime and will follow-up as needed. Advised patient to seek urgent medical attention if they develop new onset progressive weakness and/or bowel/bladder dysfunction Jessica Hardwick DO Sports Medicine and Interventional Spine Physical Medicine & Rehabilitation Total time on the date of the encounter which includes both the yogj-lc-lbvc and pkj-wavx-jl-face time personally spent by the physician and/or other qualified health disabilities caregiver(s) on the day of the encounter consisting of a total of 25 minutes (follow-up level 3) including Medical Decision Making, preparing to see the patient (eg, review of tests), obtaining and/or reviewing separatelyobtained history, performing a medically appropriate examination and/or evaluation, counseling and educating the patient/family/caregiver, ordering medications, tests, or procedures ,referring and communicating with other health family member caretaker, documenting clinical information in the electronic or other health record, independently interpreting results (not separately reported) and communicating results to the patient/ family/caregiver, care coordination Electronic Signature on File Electronically Reviewed/Signed by: Jessica Hardwick DO Author Signature Dt/Tm:07/25/2024 01:33 PM Division of Sports Medicine MARY * DO Hardwick Jina: PERFORM, MODIFY Event Display: Ortho Outpt Note Authored Date: [id number] Subjective Patient cancelled day of At next visit, plan to discuss trial trigger point injections versus facet injections. check on her dizziness. Electronic Signature on File Electronically Reviewed/Signed by: Jessica Hardwick DO Author Signature Dt/Tm:07/21/2024 09:15 AM Division of Sports Medicine JL Patient Care team information Care Team Personnel Name: MACY Goodman Kimberly A Position: Physician Asst Exmpt - Family Med Member Role: Primary Care Provider Address: [address] [place] [address] Telecom: [phone] Name: Jessie Ferrell Position: Patient Safety Sitter Member Role: Lifetime - never expires Address: [facility] [address] [place] [address] [place] Care Team Related Persons Name: VERONIKA CULLEN Name: KATRIN CHURCHILL Jr. Insurance Providers Guarantor name: NANETTE CHURCHILL Health Plan Information #: 1 Payer: [employer] PPO Member Number: [id number] Policy Number: NA Group Number: [id number] Health Plan Information #: 2 Payer: [employer] PPO Member Number: [id number] Policy Number: NA Group Number: NA
--- OUTSIDE RECORDS SUMMARY | 2024-08-15 20:33 | External Medical Summary | Continuity of Care Document ---
Author Name Unknown Organization [place] [address] [address] [place] [phone] Care Team Providers Care Art Tracer Name Role Phone Candy Goodman Primary Care Physician [phone] [id number] Date(s): 07/14/24 - 07/14/24 [facility] [address] [address] [phone] Encounter Diagnosis AILYN (generalized anxiety disorder)(Discharge Diagnosis) - 07/14/24 Discharge Disposition: Home or Self Care Attending Physician: MACY Goodman Kimberly A Encounter Type: Clinic Allergies, Adverse Reactions, Alerts Substance Criticality Severity Reaction Reaction Severity Status Bee stings Active Assessment and Plan Extracted from: Title:Office Visit Note - APSO Author:GALE Goodman Kimberly A Date:07/14/24 1. AILYN (generalized anxiety disorder) STATUS: -Has tried and failed numerous SSRI treatments for one reason or another -Retried the Sertraline and again did not notice improvement -Symptoms are more prominent immediately when she awakens in AM -Improves as day progresses -Her Sleep study was negative for any sleep disorder -Anxiety/depression has increased since her jail a few years ago as well as the health of her -Has started to become more active in the community. -Is not going to [employer] regularly. Found the environment not to be beneficial. Is also taking her dog to see if he qualifies for a support animal -Admits to extreme anxiety regarding her health/worries about dementia -Denies any SI/HI. -Was also given Lorazepam for acute anxiety attacks but has not used any DATA: Labs reviewed. GOAL: Maintain stability. PLAN: Cont current monitoring. Patient encouraged to expand her friend base/activities No treatment changes noted today Patient encouraged to refrain from restarting Sertraline Patient aware that the napping may be the new normal for her 82yo Immunizations Given and Recorded Vaccine Date Status [...] Daily, Disp# 90 tab, Refills: 3, Pharmacy: [id number] Start Date: 05/01/24 Status: Ordered Quantity: 90.0 Unit: tab Repeat number: 1 Lotemax Start: 10/07/10 2:47:00 PM EDT, See Instructions, 1 drop both eyes 3 times a week Start Date: 10/07/10 Status: Ordered Repeat number: 1 meloxicam 15 mg oral tablet Start: 06/29/24 9:10:00 AM EDT, 1 tab, PO, Daily, Disp# 30 tab, Refills: 1, Pharmacy: [id number] Start Date: 06/29/24 Status: Ordered Quantity: 30.0 Unit: tab Repeat number: 1 methocarbamol 750 mg oral tablet Start: 06/02/24 1:20:00 PM EST, 1 tab, PO, tid, Disp# 90 tab, Refills: 1, Pharmacy: [facility]/pharmacy #[id number] Start Date: 06/02/24 Stop Date: 08/01/24 Status: Ordered Quantity: 90.0 Unit: tab Repeat number: 2 Robaxin 500 mg oral tablet Start: 05/05/24 2:53:00 PM EST, 1 tab, PO, q8h, Disp# 90 tab, Refills: 2, for muscle pain, Pharmacy:[facility]/pharmacy #[id number] Start Date: 05/05/24 Stop Date: 08/03/24 Status: Ordered Quantity: 90.0 Unit: tab Repeat number: 3 Indication: Myalgia, other site sertraline 25 mg oral tablet Start: 05/15/24 9:20:00 AM EST, 0.5 tab, PO, Daily, Disp# 15 tab, Refills: 3, Pharmacy: [id number] Start Date: 05/15/24 Status: Ordered Quantity: 15.0 [...] Unit: tab Repeat number: 1 Mental Status 07/14/24 Barriers to Learning one year Vision imp airment, Other: glasses Mandatory Health Literacy Documentation Yes Health Literacy Communication Barriers N ever Primary Language Indonesian Problem List Condition Confirmation Course Effective Dates [...] Dates Health Status Cl inical Service Informant AILYN (generalized anxiety disorder) Discharge Diagnosis 07/14/24 Non-Specified Procedures Procedure Date Related Diagnosis Body [...] 6left great toe nail removed done in [place] Dr Cormier 7A mild to sloping to [...] to oldest [Reference Range]: 1 Heart Rate 89 bpm (07/14/24 11:39 AM) Respiratory Rate 18 br/min (07/14/24 11:39 AM) Blood Pressure 168/92mmHg (07/14/24 11:39 AM) Cuff Pulse Pressure 76 mmHg (07/14/24 11:39 AM) Social History Social History Type Response Smoking Status Never smoked cigaret xiomara Sex Female Sex Representation Female (finding) [facility] Outpt Note * MACY Goodman, Candy Pastrana: PERFORM Event Display: [facility] Outpt Note Authored Date: [id number] Assessment/Plan 1. AILYN (generalized anxiety disorder) STATUS: -Has tried and failed numerous SSRI treatments for one reason or another -Retried the Sertraline and again did not notice improvement -Symptoms are more prominent immediately when she awakens in AM -Improves as day progresses -Her Sleep study was negative for any sleep disorder -Anxiety/depression has increased since her jail a few years ago as well as the health of hersukhjinderband -Has started to become more active in the community. -Is not going to [employer] regularly. Found the environment not to be beneficial. Is also taking her dog to see if he qualifies for a support animal -Admits to extreme anxiety regarding her health/worries about dementia -Denies any SI/HI. -Was also given Lorazepam for acute anxiety attacks but has not used any DATA: Labs reviewed. GOAL: Maintain stability. PLAN: Cont current monitoring. Patient encouraged to expand her friend base/activities No treatment changes noted today Patient encouraged to refrain from restarting Sertraline Patient aware that the napping may be the new normal for her 82yo Chief Complaint 1 month f/u, still dealing with the numbness, shoulder pain, neck pain History of Present Illness Patient is a Review of Systems ROS per HPI Physical Exam Vitals & Measurements HR: 89 (Monitored) RR: 18 BP: 168/92 SpO2: 97% PHQ2 Data (Data Documented on:07/14/2024 11:34) Emotional health assessment NEGATIVE General Anxiety Disorder Screening: AILYN-7 Score: 15 AILYN-7 Problem Severity: Somewhat Difficult GENERAL: _No acute distress. Well developed and well nourished. Vital signs reviewed as above. EYES: _EOMI. Anicteric sclerae. HENT: _Moist mucous membranes. RESPIRATORY: _Clear to auscultation bilaterally. No wheezing, rales, or rhonchi. CARDIOVASCULAR: _Regular rate and rhythm. No murmurs. ABDOMEN: _Soft, non-tender and non-distended. Normal bowel sounds. EXTREMITIES: _No gross deformities. SKIN: _Warm, dry. [...] bilateral Sinusitis Swollen face Visit for routine car varnisher exam Procedure/Surgical History •Endoscopy| Service Date: 11/07/2020•Colonoscopy| [...] See Instructions meloxicam(meloxicam 15 mg oral tablet), 1 tab, PO, Daily methocarbamol(Robaxin 500 mg oral tablet), 500 mg= [...] Adult Social Determinants of Health Screening due 07/14/24 Unknown Frequency Falls Plan of Care due 07/14/24 Unknown Frequency Hepatitis C Screening due 07/14/24 One-time only Pneumococcal Vaccine Older Adults due 07/14/24 One-time only Seasonal COVID 19 Vaccine due 07/14/24 Unknown Frequency Shingles Vaccine due 07/14/24 One-time only Due In Future Body Mass Index not due until 05/10/25 and every 366 day Satisfied (in the past 1 year) Satisfied Body Mass Index on 05/09/24. Satisfied by SANTIAGO Ratliff [facility] Breast Cancer Screening on 08/10/23. Satisfied by Sonia Wren Electronic Signature on File Electronically Reviewed/Signed by: Candy Goodman PA-C Author Signature Dt/Tm:07/14/2024 01:29 PM Department of Family Medicine [facility] Patient Care team information Care Team Personnel Name: MACY Goodman, Candy Pastrana Position: Physician Asst Exmpt - Family Med Member Role: Primary Care Provider Address: [address] [place] [address] Telecom: [phone] Name: MariaelenaJessie Position: Blasting Entryman Member Role: Lifetime - never expires Address: [facility] [address] [place] [address] Care Team Related Persons Name: VERONIKA CULLEN Name: ZHAO Mcintosh, KATRIN Chopra Insurance Providers Guarantor name: NANETTE CHURCHILL Health Plan Information #: 1 Payer: [employer] P[employer] Member Number: [id number] Policy Number: NA Group Number: [id number] Health Plan Information #: 2 Payer: [employer] P[employer] Member Number: [id number] Policy Number: NA Group Number: [id number]"
[2024-08-15] MEDS: SERTRALINE HCL 50 MG TABLET PO SCH (22:46)
[2024-08-15] MEDS: FAMOTIDINE 40 MG TABLET PO SCH (22:46)
--- NOTE | 2024-08-16 09:57 | Orthopedic Progress Note ---
Date of Service August 16, 2024 Assessment & Plan (1) Left trimalleolar fracture: Plan: Patient has a trimalleolar fracture of her left ankle. She was placed in a posterior with coaptation splint of her left lower extremity yesterday. She was advised to keep the splint on at all times. Keep it clean and dry. She needs to be nonweightbearing of her left leg at all times. We do range of motion of her hip and knee and toes as tolerated. Lovenox 40 mg SQ daily for DVT prophylaxis. Pain medicines as per primary service. Regular diet is ordered. Patient will need open reduction internal fixation of her left ankle in the next few days or upcoming weeks. Plan is to take her splint and dressings down tomorrow to look at her skin. If the skin is healthy with no evidence of breakdown or skin blisters or significant swelling we will plan most likely for surgery at the earliest Wednesday morning. She was informed of this. She is concerned about staying in the hospital for this period of time. Explained to her that she could potentially go home and this could be done as an outpatient although if her skin looks healthy enough for surgery would recommend potentially staying through till Wednesday and then going home for Wednesday after her surgery. In the meantime continue ice and elevation above her heart. Will continue to follow while in house. Dr. Cantu informed of today's findings. (2) Fracture of right foot: Plan: Patient may be weightbearing as tolerated on the right lower extremity with the cam boot and the assistance of a walker PT/OT Ice As needed for pain and swelling Elevation of right foot above heart for swelling. May do full range of motion of her toes and ankle as tolerated. Walker assistance when out of bed. Pain control with p.o. or IV pain medication Will continue to follow while in house. Dr. Cantu informed of today's findings. Admission and Anticipated Discharge Date Admission Date: August 15, 2024 Subjective Patient is resting in bed. She is tearful. She is worried about "having to wait so long for surgery". Minimal pain in her left ankle currently. No significant pain in the right foot. She has not been out of bed. She is elevated her left leg on 3 or 4 pillows currently. The splint is comfortable. She tells me that she had a previous surgery of her left great toe by Dr. Leone. This prevents her toe from moving. She states she can kind of bend it down but she cannot really bend it back at all. When she is trying to move her toes and looking at it she believes it to be moving "normally". Physical Exam Musculoskeletal: Exam of her left lower extremity: Left leg is elevated on 4 pillows. The splint is clean, dry and intact. Not bothering her at her knee or her toes. Toes move freely. Capillary refill is brisk. Sensation is normal. Dorsalis pedis pulses palpated. Posterior tibial pulse not palpated. She does not have much dorsiflexion in the great toe. She can gently flex her IP joint of the great toe about 10 degrees. Exam of her right lower extremity: Mild edema into the foot. Mild ecchymosis. Point tender over the fifth metatarsal. Nontender throughout the rest of her foot. She has a superficial abrasion across the anterior aspect of her ankle. She has full ankle range of motion with normal strength. Full toe range of motion on the right side. Old healed incision of her right great toe for bunion surgery. Distal pulses are 2+. Sensation is normal throughout the right foot. Results & Data Vital Signs (Past 12 Hours) Vital Signs Temp Pulse Resp BP Pulse Ox O2 Del Method 08/16/24 08:22 36.8 C 68 18 172/89 H 99 Room Air Laboratory Results 08/15/24 Range/Units 13:08 WBC 8.03 (4.8-10.8) K/ul RBC 4.65 (4.20-5.40) M/uL Hgb 14.1 (12.0-16.0) g/dl Hct 41.4 (37.0-47.0) % MCV 89.0 (80.0-100.0) fL MCH 30.3 (25.0-34.0) pg MCHC 34.1 (32.0-36.0) g/dL RDW Std Deviation 41.6 (36.4-46.3) fL RDW Coeff of Oscar 12.8 (11.5-14.5) % Plt Count 188 (130-400) K/uL MPV 10.8 (9.4-12.4) fL Immature Gran % (Auto) 0.5 % Neut % (Auto) 70.4 % Lymph % (Auto) 18.7 % [place] % (Auto) 7.5 % Eos % (Auto) 2.0 % Baso % (Auto) 0.9 % Neut # (Auto) 5.66 (1.40-6.50) K/uL Lymph # (Auto) 1.50 (1.20-3.40) K/uL [place] # (Auto) 0.60 H (0.11-0.59) K/uL Eos # (Auto) 0.16 (0.00-0.50) K/uL Baso # (Auto) 0.07 (0.00-0.20) K/uL Immature Gran # (Auto) 0.04 (0.01-0.20) K/uL PT 11.0 (9.0-12.0) Seconds INR 1.0 (0.9-1.1) APTT 22 (21-31) Seconds PTT Ratio 0.8 Sodium 138 (136-145) mmol/L Potassium 3.8 (3.5-5.1) mmol/L Chloride 104 (98-107) mmol/L Carbon Dioxide 24 (21-32) mmol/L Anion Gap 10 (3-11) BUN 21 (6-23) mg/dl Creatinine 0.76 (0.6-1.2) mg/dl Est Cr Clr Drug Dosing 70.4 ml/min eGFR 80.16 BUN/Creatinine Ratio 27.6 H (10-20) Glucose 110 H (70-99(Fasting)) mg/dl Calcium 9.7 (8.6-10.3) mg/dl Total Bilirubin 1.2 H (0.2-1.0) mg/dl AST 26 (13-39) U/L ALT 20 (7-52) U/L Alkaline Phosphatase 54 (34-104) U/L Total Protein 6.9 (6.0-8.3) gm/dl Albumin 4.2 (3.4-5.0) gm/dl Globulin 2.7 (2.5-4.0) gm/dl Albumin/Globulin Ratio 1.6 (0.9-2) Lipase 10 L (11-82) U/L (2) Fracture of right foot Encounter type: initial encounter Fracture type: closed Qualified Code(s): S92.901A - Unspecified fracture of right foot, initial encounter for closed fracture
[2024-08-16] MEDS: ACETAMINOPHEN 325 MG TAB PO SCH (10:15)
[2024-08-16] MEDS: ENOXAPARIN INJ 40 MG/0.4 ML SYR SQ SCH (10:18)
--- NOTE | 2024-08-16 10:21 | Hospitalist Progress Note ---
Date of Service August 16, 2024 Assessment & Plan (1) Fall: Plan: 78-year-old female with a mechanical fall when she tripped falling down 3 stairs. She did not have head strike or loss of consciousness. Due to her fall she sustained bilateral foot/ankle fractures. Orthopedics is consulted and following. surgery tentatively anticipated for Wednesday # left-sided bimalleolar or trimalleolar ankle fractureDr. Alondra consulted recommends nonweightbearing left lower extremity in splint with ice and elevation until swelling goes down (to allow proper wound healing) then will need surgery, anticipated for Wednesday continue DVT prophylaxis with enoxaparin she does need better pain control I have scheduled her acetaminophen every 6 hours and advised her to be more proactive with the oral pain medication bowel regimen ordered I contacted orthopedics regarding whether she can begin PT OT while nonbearing on left lower extremity and cam boot on right foot RCRI 0 points. No further modifiable major risk factors. 30-day perioperative risk low, approximately 3.6%. Proceed to operative repair when indicated per surgical team. Routine EKG pending # right sided foot fractureorthopedics recommended weight-bear as tolerated with Cam boot # hypertension Patient states she has whitecoat hypertension however in review of vital signs dating back 2 years she is always hypertensive sometimes severely Continue working on pain control as above, monitor blood pressure I would not be surprised if she has chronic hypertension and is in the range where she would benefit from an antihypertensive - though will take some extended discussion with her Will obtain twelve-lead EKG and urinalysis to evaluate for any target organ damage DVT PPx: Lovenox (2) Foot fracture, right: (3) Left trimalleolar fracture: Admission and Anticipated Discharge Date Admission Date: August 15, 2024 Zohaib Calderon is quite anxious about delay to have surgery a left ankle and time away from home because her has significant health problems and seems to have some mild cognitive impairment I reassured her that the delay in surgery was not a scheduling issue and rather was necessary and typical for the ankle swelling to go down prior to repair left ankle pain is severe only when the leg is moved, otherwise tolerable however she has not had any pain medication or Tylenol since 4 mg of IV morphine yesterday evening. Right foot pain has improved compared to yesterday, ecchymosis is evolving she says that her systolic blood pressure usually runs around 150s but then later said it was 120s, at her PCP it is always elevated and she says it is whitecoat hypertension Physical Exam 2 Physical Exam: PHYSICAL EXAMINATION Last 24h vital signs reviewed, see documentation in flowsheet General: comfortable appearing, no distress HEENT: Normocephalic, atraumatic, pupils round and equal, sclerae anicteric, no conjunctival injection, moist mucus membranes Lungs: Normal respiratory effort. Clear to auscultation bilaterally. No RRW Heart: Regular rate and rhythm, no murmurs. No JVD Abdomen: Soft, nontender, nondistended. Bowel sounds present. Extremities: Warm, dry, well-perfused. left lower extremity is in a splint toes are pink mildly cool but with good cap refill, right foot with ecchymosis from the lateral edge extending onto the dorsum of the foot is warm and well- perfused Neuro: Alert and oriented x 4, face symmetric, moves 4 extremities well Psych: Normal affect and behavior Results & Data Results & Data Vital Signs (Past 12 Hours) Vital Signs Temp Pulse Resp BP Pulse Ox O2 Del Method 08/16/24 08:22 36.8 C 68 18 172/89 H 99 Room Air Laboratory Results 08/15/24 13:08 08/15/24 13:08 PG Care Time/CCT Total # of Minutes Spent Total Time Spent with Patient: Total time spent is greater than 50% in coordination of care (as documented) at patient's floor/unit and/or counseling patient: Coding Level of Care Code 08184 SUB INP/OBS CARE 2/35MIN Diagnoses Fall W19.XXXA Foot fracture, right S92.901A Left trimalleolar fracture S82.852P
[2024-08-16] MEDS ORDERED: SENNA 8.6 MG TAB PO PRN (10:22)
[2024-08-16] MEDS: POLYETHYLENE (MIRALAX) 17 GM PACK PO SCH (13:43)
[2024-08-17 07:45] LABS: Appearance Urine Clear (Clear); Bilirubin Urine Negative (Negative); Blood Urine Negative (Negative); Color Urine Yellow; Glucose Urine UA Negative (Negative); Ketones Urine Trace (Negative); Leukocyte Esterase Urine Negative (Negative); Nitrite Urine Negative (Negative); Protein Urine Negative (Negative); Specific Gravity Urine 1.014 (1.000-1.030); Urobilinogen Urine Negative (Negative); pH Urine 6.5 (4.5-7.5)
--- NOTE | 2024-08-17 09:56 | Electrocardiogram Report ---
Test Reason : Blood Pressure : */* mmHG Vent. Rate : 64 BPM Atrial Rate : 64 BPM P-R Int : 188 ms QRS Dur : 88 ms QT Int : 434 ms P-R-T Axes : 47 -5 24 degrees QTcB Int : 447 ms Sinus rhythm with occasional Premature ventricular complexes Minimal voltage criteria for LVH, may be normal variant Cannot rule out Anterior infarct (cited on or before 18-Sep-2022) Abnormal ECG When compared with ECG of 10-Nov-2023 15:43, Premature ventricular complexes are now Present Confirmed by Daryl Dale ([id number]) on 08/17/2024 9:56:21 AM Referred By: REFERRED SELF Confirmed By: Daryl Dale
--- NOTE | 2024-08-17 10:01 | Orthopedic Progress Note ---
Date of Service August 17, 2024 Assessment & Plan (1) Left trimalleolar fracture: Plan: The patient was educated regarding today's findings. She has a trimalleolar fracture of her left ankle as well as a right fifth metatarsal fracture. She remains in the Ortho-Glass splint on the left. She is in a cam boot on the right. Keep the splint clean and dry. Continue nonweightbearing of her left leg at all times. Lovenox 40 mg SQ daily for DVT prophylaxis. Pain medicines as per primary service. Regular diet is ordered. Patient will need open reduction internal fixation of her left ankle in the next few days or upcoming weeks. Plan is to take her splint and dressings down later today to look at her skin. If the skin is healthy with no evidence of breakdown or skin blisters or significant swelling we will plan most likely for surgery at the earliest Wednesday morning. She has been informed of this. Continue ice and elevation above her heart. (2) Closed trimalleolar fracture of left ankle: Admission and Anticipated Discharge Date Admission Date: August 15, 2024 Subjective This 78-year-old female is seen today in her room. She is 3 days post injury to the right fifth medic tarsal and left ankle. She continues to emphasize that she would like to go home. Physical therapy is in the room working with her at this time. She complains of medial left ankle and tibial pain in the splint. There is very little discomfort in the right foot. She is happy this morning that her blood pressure has been good. She denies any numbness or tingling in either foot. No additional complaints. Physical Exam Physical Exam: General: Well-developed, well-nourished, elderly white female, in no acute distress. Sitting in a bedside chair. Alert and oriented. Conversive. Skin: Warm and dry with good turgor. No rashes. No significant edema in the right foot. Ecchymosis is resolving. No open wounds. Left ankle is in an Ortho-Glass splint. This was left in place. No significant edema at her toes in the left foot. Musculoskeletal: The patient has intact motor function of her right knee, ankle, and toes. Good plantarflexion and dorsiflexion. There is some discomfort with palpation over the fifth metatarsal. No pain with palpation over the rest of the foot or ankle. Motor function of the toes of the left foot are intact. Range of motion of the ankle was not attempted secondary to known fracture. Neurologic: Gross sensation is intact across both lower extremities, including the toes, by soft touch. Results & Data Vital Signs (Past 12 Hours) Vital Signs Temp Pulse Resp BP Pulse Ox O2 Del Method 08/17/24 07:55 36.7 C 81 16 128/68 93 Room Air 08/16/24 23:42 36.7 C 75 18 140/83 94 Room Air Laboratory Results UA obtained today shows clear yellow urine with trace ketones. No protein, blood, nitrates, or leukocyte esterase. (2) Closed trimalleolar fracture of left ankle Encounter type: initial encounter Qualified Code(s): S82.852A - Displaced trimalleolar fracture of left lower leg, initial encounter for closed fracture
--- NOTE | 2024-08-17 17:20 | Hospitalist Progress Note ---
Date of Service August 17, 2024 Assessment & Plan (1) Fall: Plan: 78-year-old female with a mechanical fall when she tripped falling down 3 stairs. She did not have head strike or loss of consciousness. Due to her fall she sustained bilateral foot/ankle fractures. Orthopedics is consulted and following. surgery tentatively anticipated for Wednesday # left-sided bimalleolar or trimalleolar ankle fractureDr. Alondra consulted recommends nonweightbearing left lower extremity in splint with ice and elevation until swelling goes down (to allow proper wound healing) then will need surgery, anticipated for Wednesday continue DVT prophylaxis with enoxaparin pain control improved today on scheduled acetaminophen and oxycodone bowel regimen ordered continue PT OT while nonbearing on left lower extremity and cam boot on right foot RCRI 0 points. No further modifiable major risk factors. 30-day perioperative risk low, approximately 3.6%. Proceed to operative repair when indicated per surgical team. I reviewed the EKG tracing today sinus rhythm occasional PVC poor R wave progression, Possible old anterior infarct. # right sided foot fractureorthopedics recommended weight-bear as tolerated with Cam boot - doing well with this not painful standing/walking # hypertension Patient states she has whitecoat hypertension normotensive this morning, improved with less anxiety and better pain control. Continue to monitor EKG without evidence of LVH, urinalysis without proteinuria I updated her daughter at bedside today DVT PPx: Lovenox (2) Foot fracture, right: (3) Left trimalleolar fracture: Admission and Anticipated Discharge Date Admission Date: August 15, 2024 Subjective left ankle pain improved compared to yesterday, right foot not painful even with weightbearing in cam boot PT came they were able to stand her up and she walked a few steps and got into the chair Physical Exam Physical Exam: PHYSICAL EXAMINATION Last 24h vital signs reviewed, see documentation in flowsheet General: comfortable appearing, no distress, sitting up in the chair HEENT: Normocephalic, atraumatic, pupils round and equal, sclerae anicteric, no conjunctival injection, moist mucus membranes Lungs: Normal respiratory effort. Clear to auscultation bilaterally. No RRW Heart: Regular rate and rhythm, no murmurs. No JVD Abdomen: Soft, nontender, nondistended. Bowel sounds present. Extremities: Warm, dry, well-perfused. left lower extremity is in a splint toes are pink and warm, right foot is in a cam walker boot toes are pink and warm Neuro: Alert and oriented x 4, face symmetric, moves 4 extremities well Psych: Normal affect and behavior Results & Data Results & Data Vital Signs (Past 12 Hours) Vital Signs Temp Pulse Resp BP Pulse Ox O2 Del Method 08/17/24 15:58 36.7 C 70 20 137/76 100 Room Air 08/17/24 07:55 36.7 C 81 16 128/68 93 Room Air PG Care Time/CCT Total # of Minutes Spent Total Time Spent with Patient: Total time spent is greater than 50% in coordination of care (as documented) at patient's floor/unit and/or counseling patient: Coding Level of Care Code 98885 SUB INP/OBS CARE 2/35MIN Diagnoses Fall W19.XXXA Foot fracture, right S92.901A Left trimalleolar fracture S82.852A
--- NOTE | 2024-08-18 09:23 | Orthopedic Progress Note ---
Date of Service August 18, 2024 Assessment & Plan (1) Left trimalleolar fracture: Plan: Weightbearing as tolerated on right lower extremity with boot in place and walker assistance PT/OT She remains in the Ortho-Glass splint on the left. Keep the splint clean and d ry. Continue nonweightbearing of her left leg at all times. Lovenox 40 mg SQ daily for DVT prophylaxis. Pain medicines as per primary service. Regular diet is ordered. Patient will need open reduction internal fixation of her left ankle possibly next Wednesday. Plan is to take her splint and dressings down Wednesday to look at her skin. If the skin is healthy with no evidence of breakdown or skin blisters or significant swelling Continue ice and elevation above her heart. Will need a 2-week follow-up at [facility] orthopedics after surgery (2) Closed trimalleolar fracture of left ankle: Admission and Anticipated Discharge Date Admission Date: August 15, 2024 Subjective This 78-year-old female seen today for follow-up of a trimalleolar fracture of her left ankle and right fifth metatarsal fracture. Patient states that she has been able to ambulate on the right foot with the boot in place. She is nonweightbearing on the left lower extremity. She states that she has been working with physical therapy and Occupational Therapy. Patient states that Dr. Cantu changed her splint yesterday and discussed the possibility of surgical intervention next Wednesday. He will check her splint down on Wednesday to determine whether this is an option. Currently the patient denies any numbness or tingling in either lower extremity. She denies chest pain, shortness of breath, fever, chills, sweats, nausea, vomiting, diarrhea or difficulty voiding. Review of Systems Review of Systems: All systems reviewed & are unremarkable except as noted in Subjective Physical Exam Physical Exam: Left lower extremity: Splint that is clean dry and intact and left in place on her left lower extremity. Patient is able to move her digits. She is able to detect light sensation to touch over the pads of all digits. Dorsalis pedis pulses are 2+. Capillary refill is less than 2 seconds. Right lower extremity: Boot was removed from the patient's right foot. Patient has visible edema and tenderness to palpation over the dorsal and lateral aspect of the proximal fifth metatarsal. Patient experiences pain with resisted plantarflexion and dorsiflexion. She has pain with applied resistance applied during external rotation but no pain with internal rotation. She has discomfort with light passive inversion and eversion of her ankle. She has no tenderness of the talus. No tenderness over the medial or lateral malleolus. She is able to detect light sensation to touch of the pads of all digits. She is able to move all digits appropriately. Dorsalis pedis and posterior tibial pulse are 2+. Capillary fill is less than 2 seconds. Patient is neurovascularly intact in both lower extremities. Results & Data Vital Signs (Past 12 Hours) Vital Signs Temp Pulse Resp BP Pulse Ox O2 Del Method 08/18/24 07:14 36.6 C 74 17 152/84 H 96 Room Air Diagnostic Findings Laboratory Results WBC 8.03 K/ul (4.8-10.8) 08/15/24 13:08 RBC 4.65 M/uL (4.20-5.40) 08/15/24 13:08 Hgb 14.1 g/dl (12.0-16.0) 08/15/24 13:08 Hct 41.4 % (37.0-47.0) 08/15/24 13:08 MCV 89.0 fL (80.0-100.0) 08/15/24 13:08 MCH 30.3 pg (25.0-34.0) 08/15/24 13:08 MCHC 34.1 g/dL (32.0-36.0) 08/15/24 13:08 RDW Std Deviation 41.6 fL (36.4-46.3) 08/15/24 13:08 RDW Coeff of Oscar 12.8 % (11.5-14.5) 08/15/24 13:08 Plt Count 188 K/uL (130-400) 08/15/24 13:08 MPV 10.8 fL (9.4-12.4) 08/15/24 13:08 Immature Gran % (Auto) 0.5 % 08/15/24 13:08 Neut % (Auto) 70.4 % 08/15/24 13:08 Lymph % (Auto) 18.7 % 08/15/24 13:08 Trigg % (Auto) 7.5 % 08/15/24 13:08 Eos % (Auto) 2.0 % 08/15/24 13:08 Baso % (Auto) 0.9 % 08/15/24 13:08 Neut # (Auto) 5.66 K/uL (1.40-6.50) 08/15/24 13:08 Lymph # (Auto) 1.50 K/uL (1.20-3.40) 08/15/24 13:08 Trigg # (Auto) 0.60 K/uL (0.11-0.59) H 08/15/24 13:08 Eos # (Auto) 0.16 K/uL (0.00-0.50) 08/15/24 13:08 Baso # (Auto) 0.07 K/uL (0.00-0.20) 08/15/24 13:08 Immature Gran # (Auto) 0.04 K/uL (0.01-0.20) 08/15/24 13:08 PT 11.0 Seconds (9.0-12.0) 08/15/24 13:08 INR 1.0 (0.9-1.1) 08/15/24 13:08 APTT 22 Seconds (21-31) 08/15/24 13:08 PTT Ratio 0.8 08/15/24 13:08 Sodium 138 mmol/L (136-145) 08/15/24 13:08 Potassium 3.8 mmol/L (3.5-5.1) 08/15/24 13:08 Chloride 104 mmol/L (98-107) 08/15/24 13:08 Carbon Dioxide 24 mmol/L (21-32) 08/15/24 13:08 Anion Gap 10 (3-11) 08/15/24 13:08 BUN 21 mg/dl (6-23) 08/15/24 13:08 Creatinine 0.76 mg/dl (0.6-1.2) 08/15/24 13:08 Est Cr Clr Drug Dosing 70.4 ml/min 08/15/24 13:08 eGFR 80.16 08/15/24 13:08 BUN/Creatinine Ratio 27.6 (10-20) H 08/15/24 13:08 Glucose 110 mg/dl (70-99(Fasting)) H 08/15/24 13:08 Calcium 9.7 mg/dl (8.6-10.3) 08/15/24 13:08 Total Bilirubin 1.2 mg/dl (0.2-1.0) H 08/15/24 13:08 AST 26 U/L (13-39) 08/15/24 13:08 ALT 20 U/L (7-52) 08/15/24 13:08 Alkaline Phosphatase 54 U/L (34-104) 08/15/24 13:08 Total Protein 6.9 gm/dl (6.0-8.3) 08/15/24 13:08 Albumin 4.2 gm/dl (3.4-5.0) 08/15/24 13:08 Globulin 2.7 gm/dl (2.5-4.0) 08/15/24 13:08 Albumin/Globulin Ratio 1.6 (0.9-2) 08/15/24 13:08 Lipase 10 U/L (11-82) L 08/15/24 13:08 Urine Color Yellow 08/17/24 06:34 Urine Appearance Clear (Clear) 08/17/24 06:34 Urine pH 6.5 (4.5-7.5) 08/17/24 06:34 Ur Specific Maxbass 1.014 (1.000-1.030) 08/17/24 06:34 Urine Protein Negative (Negative) 08/17/24 06:34 Urine Glucose (UA) Negative (Negative) 08/17/24 06:34 Urine Ketones Trace (Negative) H 08/17/24 06:34 Urine Blood Negative (Negative) 08/17/24 06:34 Urine Nitrite Negative (Negative) 08/17/24 06:34 Urine Bilirubin Negative (Negative) 08/17/24 06:34 Urine Urobilinogen Negative (Negative) 08/17/24 06:34 Ur Leukocyte Esterase Negative (Negative) 08/17/24 06:34 Impressions Ankle X-Ray 08/15/24 13:33 XR foot RT min 3V routine, XR ankle RT min 3V routine HISTORY: 78 years-old Female fall acute pain of the right foot and ankle status post fall COMPARISON: None TECHNIQUE: 3 views of the right foot with 3 views of the right ankle FINDINGS: FOOT: Demineralized appearance of the bones. Intact cannulated screws fixate the first metatarsal-phalangeal joint. Subtle acute nondisplaced intra-articular fracture involving the base of the fifth metatarsal. Probable additional acute subtle cortical chip fracture of the lateral cortex of the anterior process calcaneus. 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 No additional acute fracture or dislocation identified. IMPRESSION: 1. Acute nondisplaced intra-articular fracture involves the base of the fifth metatarsal. 2. Subacute lateral cortical chip fracture of the anterior process calcaneus. ACT 112: Negative or not required by law. The above report was generated using voice recognition software. It may contain grammatical, syntax or spelling errors. Electronically signed by: Juan Mercer M.D. 08/15/2024 2:50 PM Foot X-Ray 08/15/24 13:33 XR foot RT min 3V routine, XR ankle RT min 3V routine HISTORY: 78 years-old Female fall acute pain of the right foot and ankle status post fall COMPARISON: None TECHNIQUE: 3 views of the right foot with 3 views of the right ankle FINDINGS: FOOT: Demineralized appearance of the bones. Intact cannulated screws fixate the first metatarsal-phalangeal joint. Subtle acute nondisplaced intra-articular fracture involving the base of the fifth metatarsal. Probable additional acute subtle cortical chip fracture of the lateral cortex of the anterior process earl caneus. 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 No additional acute fracture or dislocation identified. IMPRESSION: 1. Acute nondisplaced intra-articular fracture involves the base of the fifth metatarsal. 2. Subacute lateral cortical chip fracture of the anterior process calcaneus. ACT 112: Negative or not required by law. The above report was generated using voice recognition software. It may contain grammatical, syntax or spelling errors. Electronically signed by: Juan Mercer M.D. 08/15/2024 2:50 PM Tibia/Fibula X-Ray 08/15/24 13:33 XR tibia fibula LT 2V CLINICAL HISTORY: Fall. COMPARISON: Left foot radiographs October 11, 2012. FINDINGS: No proximal left tibial or fibular fractures are present. There is an acute fracture of the medial malleolus which is displaced 6 mm. There is also an acute oblique mildly displaced distal left fibular fracture and a probable acute nondisplaced fracture of the posterior distal left tibia. There is mild medial ankle mortise widening. IMPRESSION: 1. Acute mildly displaced left ankle trimalleolar fracture. 2. Mild medial ankle mortise widening. 3. No proximal left tibial or fibular fracture. ACT 112: Negative or not required by law. Electronically signed by: Godfrey Hernandez M.D. 08/15/2024 2:23 PM (2) Closed trimalleolar fracture of left ankle Encounter type: initial encounter Qualified Code(s): S82.852A - Displaced trimalleolar fracture of left lower leg, initial encounter for closed fracture
[2024-08-18] MEDS: OXYMETAZOLINE 0.05% 30 ML BTL PRN (18:10)
--- NOTE | 2024-08-18 20:29 | Hospitalist Progress Note ---
Date of Service August 18, 2024 Assessment & Plan (1) Fall: Plan: 78-year-old female with a mechanical fall when she tripped falling down 3 stairs. She did not have head strike or loss of consciousness. Due to her fall she sustained bilateral foot/ankle fractures. Orthopedics is consulted and following. # left-sided bimalleolar or trimalleolar ankle fractureDr. Alondra consulted recommends nonweightbearing left lower extremity in splint with ice and elevati on until swelling goes down and small skin wound heals (to allow proper wound healing) then will need surgery continue DVT prophylaxis with enoxaparin pain control improved cont scheduled acetaminophen and oxycodone bowel regimen ordered continue PT OT while nonbearing on left lower extremity and cam boot on right foot - mobility improving RCRI 0 points. No further modifiable major risk factors. 30-day perioperative risk low, approximately 3.6%. Proceed to operative repair when indicated per surgical team. --per ortho note today - splint off for skin exam Wednesday, plan surgery Wednesday # right sided foot fractureorthopedics recommended weight-bear as tolerated with Cam boot - doing well with this not painful standing/walking # hypertension Patient states she has whitecoat hypertension EKG without evidence of LVH, urinalysis without proteinuria - reviewed BPs past 24h and has been normotensive to mildly elevated I updated her daughter at bedside 08/17 DVT PPx: Lovenox (2) Foot fracture, right: (3) Left trimalleolar fracture: Admission and Anticipated Discharge Date Admission Date: August 15, 2024 Subjective L ankle pain well controlled current meds No R foot pain even weightbearing with boot BP better Physical Exam Physical Exam: PHYSICAL EXAMINATION Last 24h vital signs reviewed, see documentation in flowsheet General: comfortable appearing, no distress, sitting up in the chair HEENT: Normocephalic, atraumatic, pupils round and equal, sclerae anicteric, no conjunctival injection, moist mucus membranes Lungs: Nl WOB Heart: Abdomen: nondistended Extremities: Warm, dry, well-perfused. left lower extremity is in a splint toes are pink and warm, right foot is in a cam walker boot toes are pink and warm - no change Neuro: Alert and oriented x 4, face symmetric, moves 4 extremities well Psych: Normal affect and behavior Results & Data Results & Data Vital Signs (Past 12 Hours) Vital Signs Temp Pulse Resp BP Pulse Ox O2 Del Method 08/18/24 19:20 36.6 C 76 18 137/83 98 Room Air 08/18/24 13:40 36.7 C 84 18 115/69 98 Room Air PG Care Time/CCT Total # of Minutes Spent Total Time Spent with Patient: Total time spent is greater than 50% in coordination of care (as documented) at patient's floor/unit and/or counseling patient: Coding Level of Care Code 27933 SUB INP/OBS CARE 2/35MIN Diagnoses Fall W19.XXXA Foot fracture, right S92.901A Left trimalleolar fracture S82.852A
[2024-08-18] MEDS: FLUTICASONE PROPIONATE NA SPR 16 GM BTL SCH (20:42)
--- NOTE | 2024-08-19 14:08 | Hospitalist Progress Note ---
Date of Service August 19, 2024 Assessment & Plan (1) Fall: Plan: 78-year-old female with a mechanical fall when she tripped falling down 3 stairs. She did not have head strike or loss of consciousness. Due to her fall she sustained bilateral foot/ankle fractures. Orthopedics is consulted and following. # left-sided bimalleolar or trimalleolar ankle fractureDr. Alondra consulted recommends nonweightbearing left lower extremity in splint with ice and elevati on until swelling goes down and small skin wound heals (to allow proper wound healing) then will need surgery continue DVT prophylaxis with enoxaparin pain control improved cont scheduled acetaminophen and oxycodone bowel regimen ordered continue PT OT while nonbearing on left lower extremity and cam boot on right foot - mobility improving RCRI 0 points. No further modifiable major risk factors. 30-day perioperative risk low, approximately 3.6%. Proceed to operative repair when indicated per surgical team. --per ortho note - splint off for skin exam Wednesday, plan surgery Wednesday I ordered a CBC and BMP for tomorrow morning # right sided foot fractureorthopedics recommended weight-bear as tolerated with Cam boot - doing well with this not painful standing/walking # hypertension Patient states she has whitecoat hypertension EKG without evidence of LVH, urinalysis without proteinuria - blood pressure has been mainly normotensive with occasional increases to the 150s I updated her daughter at bedside 08/17 PT and OT are recommending acute rehab but at this point she wants to go home DVT PPx: Lovenox (2) Foot fracture, right: (3) Left trimalleolar fracture: Admission and Anticipated Discharge Date Admission Date: August 15, 2024 Subjective continues to have good pain control of her left lower extremity and her right foot does not hurt at all she is moving her bowels no nausea vomiting no dyspnea Physical Exam Physical Exam: PHYSICAL EXAMINATION Last 24h vital signs reviewed, see documentation in flowsheet General: comfortable appearing, no distress, sitting up in the chair HEENT: Normocephalic, atraumatic, pupils round and equal, sclerae anicteric, no conjunctival injection, moist mucus membranes Lungs: CTA bilaterally no rhonchi rales or wheezing Heart: regular no murmurs rubs or gallops Abdomen: nondistended Extremities: Warm, dry, well-perfused. left lower extremity is in a splint toes are pink and warm, right foot is in a cam walker boot toes are pink and warm - no change 5/3 Neuro: Alert and oriented x 4, face symmetric, moves 4 extremities well Psych: Normal affect and behavior Results & Data Results & Data Vital Signs (Past 12 Hours) Vital Signs Temp Pulse Resp BP Pulse Ox O2 Del Method 08/19/24 07:40 36.6 C 70 16 151/75 H 95 Room Air PG Care Time/CCT Total # of Minutes Spent Total Time Spent with Patient: Total time spent is greater than 50% in coordination of care (as documented) at patient's floor/unit and/or counseling patient: Coding Level of Care Code 33982 SUB INP/OBS CARE 2/35MIN Diagnoses Fall W19.XXXA Foot fracture, right S92.901A Left trimalleolar fracture S82.852A
[2024-08-20 06:16] LABS: Hematocrit (blood only) 37.6 % (37.0-47.0); Hemoglobin 12.6 g/dl (12.0-16.0); Mean Corpuscular Hemoglobin 30.1 pg (25.0-34.0); Mean Corpuscular Hgb Conc 33.5 g/dL (32.0-36.0); Mean Corpuscular Volume 89.7 fL (80.0-100.0); Mean Platelet Volume 10.2 fL (9.4-12.4); Platelet Count 189 K/uL (130-400); RDW Coefficient of Variation 12.9 % (11.5-14.5); RDW Standard Deviation 42.3 fL (36.4-46.3); Red Blood Count 4.19 M/uL (4.20-5.40); White Blood Count 7.09 K/ul (4.8-10.8)
[2024-08-20 06:33] LABS: BUN Creatinine Ratio 28.8 (10-20); Creatinine Clr Calc Pharmacy 73.3 ml/min; Potassium 3.9 mmol/L (3.5-5.1)
--- NOTE | 2024-08-20 16:07 | Hospitalist Progress Note ---
Date of Service August 20, 2024 Assessment & Plan (1) Fall: (2) Foot fracture, right: (3) Left trimalleolar fracture: Plan 78-year-old female with a mechanical fall when she tripped falling down 3 stairs. She did not have head strike or loss of consciousness. Due to her fall she sustained bilateral foot/ankle fractures. Orthopedics is consulted and following. # left-sided bimalleolar or trimalleolar ankle fractureDrMario Cantu consulted recommends nonweightbearing left lower extremity in splint with ice and elevation until swelling goes down and small skin wound heals (to allow proper wound healing) then will need surgery continue DVT prophylaxis with enoxaparin pain control improved cont scheduled acetaminophen and oxycodone bowel regimen ordered continue PT OT while nonbearing on left lower extremity and cam boot on right foot - mobility improving RCRI 0 points. No further modifiable major risk factors. 30-day perioperative risk low, approximately 3.6%. Proceed to operative repair when indicated per surgical team. --per ortho note - splint off for skin exam Wednesday, plan surgery Wednesday reviewed CBC and BMP they are unremarkable no white count hemoglobin is 12.6 and her electrolytes are normal with creatinine 0.73 # right sided foot fractureorthopedics recommended weight-bear as tolerated with Cam boot - doing well with this not painful standing/walking # hypertension Patient states she has whitecoat hypertension EKG without evidence of LVH, urinalysis without proteinuria - blood pressure has been moderately high most of the time the last 24 hours I updated her daughter at bedside 08/17 PT and OT are recommending acute rehab but she refuses and wants to go home we discussed this at length on 08/20. We will see how she does postoperatively but if she is moving around as well as she is today she should be able to be home, there are 3 steps to enter but she has adequate family members to help her up the steps, thereafter she can stay on 1 level and her daughter lives less than 5 minutes away and is going to assist DVT PPx: Lovenox Admission and Anticipated Discharge Date Admission Date: August 15, 2024 Subjective . Frustrated about being here waiting for surgery is able to get back and forth to the bathroom using walker with hopping left lower extremity pain well-controlled on current medications, right foot is not painful even bearing weight Physical Exam 2 Physical Exam: PHYSICAL EXAMINATION Last 24h vital signs reviewed, see documentation in flowsheet General: seen going across room to bathroom and later sitting in the chair HEENT: Normocephalic, atraumatic, pupils round and equal, sclerae anicteric, no conjunctival injection, moist mucus membranes Lungs: normal work of breathing Heart: deferred Abdomen: nondistended Extremities: Warm, dry, well-perfused. left lower extremity is in a splint toes are pink and warm, right foot is in a cam walker boot toes are pink and warm - no change 5/4 she seems reasonably steady while using walker to get to the bathroom standby assist from staff member Neuro: Alert and oriented x 4, face symmetric, moves 4 extremities well Psych: Normal affect and behavior Results & Data Results & Data Vital Signs (Past 12 Hours) Vital Signs Temp Pulse Resp BP Pulse Ox O2 Del Method 08/20/24 07:35 36.6 C 70 16 163/77 H 98 Room Air Laboratory Results 08/20/24 05:42 08/20/24 05:42 PG Care Time/CCT Total # of Minutes Spent Total Time Spent with Patient: Total time spent is greater than 50% in coordination of care (as documented) at patient's floor/unit and/or counseling patient: Coding Level of Care Code 93800 SUB INP/OBS CARE 2/35MIN Diagnoses Fall W19.XXXA Foot fracture, right S92.901A Left trimalleolar fracture S82.852A
[2024-08-21] MEDS: LOTEPREDNOL ETABONATE 5 ML OPH SUSP OP SCH (07:51)
--- NOTE | 2024-08-21 09:25 | Orthopedic Progress Note ---
Date of Service August 21, 2024 Assessment & Plan (1) Left trimalleolar fracture: Plan: Check vitamin D. Supplement with vitamin D3. Continue weightbearing as tolerated on the right foot with the fracture boot. Check x-rays of the right foot today. Discussed options with the patient. The lateral side of her left ankle looks fine. The skin is okay without significant swelling. She would be appropriate for surgery over there. I would not be able to make an incision medially. A percutaneous fixation might be possible. The skin in the medial side of the ankle may . This could leave a soft tissue defect. This may take several weeks to heal or declare. I discussed several options with Shana. We could wait this out completely and operate when the medial skin is healthy. This could be another 1 to 3 weeks. The further out we get from the injury the more difficult it becomes to fixate the fracture due to scarring and healing and contracture. I do not think the medial side is suitable for traditional open reduction internal fixation. I do think we could intervene on the lateral side. If that were the case I could fixate the lateral side tomorrow. I would consider percutaneous fixation on the medial side depending on positioning and alignment. If this was not possible then I may need to come back a couple weeks down the road to fixate the medial side. She would need to remain nonweightbearing. After weighing the pros and cons risks and benefits we have elected to proceed with the fixation of the lateral side tomorrow with or without the medial sided fixation. She is aware that another operation may be necessary. It is possible that if there was good alignment that the medial side might heal on its own. Her Lovenox is held. She is n.p.o. after midnight. She will continue to elevate ice and remain nonweightbearing on the left. (2) Closed trimalleolar fracture of left ankle: Admission and Anticipated Discharge Date Admission Date: August 15, 2024 Subjective Patient is doing well. Her pain is well-controlled. She is very anxious and wants to not be here and would rather be home. This is very understandable. She has been doing much better with PT. I watched her walk from the bathroom back to the bed. She is able to bear weight as tolerated on her right leg without significant discomfort and she is able to keep a relatively nonweightbearing status on the left. Physical Exam Physical Exam: There is moderate bruising on the medial side of the left leg ankle and foot. There is a 15 mm diameter eschar which indents the skin for about a millimeter. This is located right at the medial malleolar fracture site. There is no redness or drainage and no fluctuance. Still firmly adherent around the edges. The lateral side is pristine. Skin wrinkles are present. She can wiggle her toes except for the big toe which is fused. She can slightly flex and extend her ankle slightly. DP pulses 1+ PT pulse trace palpable. Calf soft and supple without significant swelling. Tenderness medial and lateral ankle. Examination of the right foot demonstrates minimal swelling and bruising lateral foot with some tenderness around the base of the fifth metatarsal. She has 5 out of 5 ankle and toe plantarflexion dorsiflexion eversion strength. Except for big toe which is fused. Circulation and sensation intact. Results & Data Vital Signs (Past 12 Hours) Vital Signs Temp Pulse Resp BP Pulse Ox O2 Del Method 08/21/24 07:27 36.9 C 76 14 121/74 96 Room Air 08/20/24 21:52 169/93 H Laboratory Results Laboratory Results WBC 7.09 K/ul (4.8-10.8) 08/20/24 05:42 RBC 4.19 M/uL (4.20-5.40) L 08/20/24 05:42 Hgb 12.6 g/dl (12.0-16.0) 08/20/24 05:42 Hct 37.6 % (37.0-47.0) 08/20/24 05:42 MCV 89.7 fL (80.0-100.0) 08/20/24 05:42 MCH 30.1 pg (25.0-34.0) 08/20/24 05:42 MCHC 33.5 g/dL (32.0-36.0) 08/20/24 05:42 RDW Std Deviation 42.3 fL (36.4-46.3) 08/20/24 05:42 RDW Coeff of Oscar 12.9 % (11.5-14.5) 08/20/24 05:42 Plt Count 189 K/uL (130-400) 08/20/24 05:42 MPV 10.2 fL (9.4-12.4) 08/20/24 05:42 Immature Gran % (Auto) 0.5 % 08/15/24 13:08 Neut % (Auto) 70.4 % 08/15/24 13:08 Lymph % (Auto) 18.7 % 08/15/24 13:08 [place] % (Auto) 7.5 % 08/15/24 13:08 Eos % (Auto) 2.0 % 08/15/24 13:08 Baso % (Auto) 0.9 % 08/15/24 13:08 Neut # (Auto) 5.66 K/uL (1.40-6.50) 08/15/24 13:08 Lymph # (Auto) 1.50 K/uL (1.20-3.40) 08/15/24 13:08 [place] # (Auto) 0.60 K/uL (0.11-0.59) H 08/15/24 13:08 Eos # (Auto) 0.16 K/uL (0.00-0.50) 08/15/24 13:08 Baso # (Auto) 0.07 K/uL (0.00-0.20) 08/15/24 13:08 Immature Gran # (Auto) 0.04 K/uL (0.01-0.20) 08/15/24 13:08 PT 11.0 Seconds (9.0-12.0) 08/15/24 13:08 INR 1.0 (0.9-1.1) 08/15/24 13:08 APTT 22 Seconds (21-31) 08/15/24 13:08 PTT Ratio 0.8 08/15/24 13:08 Sodium 139 mmol/L (136-145) 08/20/24 05:42 Potassium 3.9 mmol/L (3.5-5.1) 08/20/24 05:42 Chloride 106 mmol/L (98-107) 08/20/24 05:42 Carbon Dioxide 27 mmol/L (21-32) 08/20/24 05:42 Anion Gap 6 (3-11) 08/20/24 05:42 BUN 21 mg/dl (6-23) 08/20/24 05:42 Creatinine 0.73 mg/dl (0.6-1.2) 08/20/24 05:42 Est Cr Clr Drug Dosing 73.3 ml/min 08/20/24 05:42 eGFR 84.12 08/20/24 05:42 BUN/Creatinine Ratio 28.8 (10-20) H 08/20/24 05:42 Glucose 108 mg/dl (70-99(Fasting)) H 08/20/24 05:42 Calcium 9.0 mg/dl (8.6-10.3) 08/20/24 05:42 Total Bilirubin 1.2 mg/dl (0.2-1.0) H 08/15/24 13:08 AST 26 U/L (13-39) 08/15/24 13:08 ALT 20 U/L (7-52) 08/15/24 13:08 Alkaline Phosphatase 54 U/L (34-104) 08/15/24 13:08 Total Protein 6.9 gm/dl (6.0-8.3) 08/15/24 13:08 Albumin 4.2 gm/dl (3.4-5.0) 08/15/24 13:08 Globulin 2.7 gm/dl (2.5-4.0) 08/15/24 13:08 Albumin/Globulin Ratio 1.6 (0.9-2) 08/15/24 13:08 Lipase 10 U/L (11-82) L 08/15/24 13:08 Urine Color Yellow 08/17/24 06:34 Urine Appearance Clear (Clear) 08/17/24 06:34 Urine pH 6.5 (4.5-7.5) 08/17/24 06:34 Ur Specific Melvin 1.014 (1.000-1.030) 08/17/24 06:34 Urine Protein Negative (Negative) 08/17/24 06:34 Urine Glucose (UA) Negative (Negative) 08/17/24 06:34 Urine Ketones Trace (Negative) H 08/17/24 06:34 Urine Blood Negative (Negative) 08/17/24 06:34 Urine Nitrite Negative (Negative) 08/17/24 06:34 Urine Bilirubin Negative (Negative) 08/17/24 06:34 Urine Urobilinogen Negative (Negative) 08/17/24 06:34 Ur Leukocyte Esterase Negative (Negative) 08/17/24 06:34 Impressions Ankle X-Ray 08/15/24 13:33 XR foot RT min 3V routine, XR ankle RT min 3V routine HISTORY: 78 years-old Female fall acute pain of the right foot and ankle status post fall COMPARISON: None TECHNIQUE: 3 views of the right foot with 3 views of the right ankle FINDINGS: FOOT: Demineralized appearance of the bones. Intact cannulated screws fixate the first metatarsal-phalangeal joint. Subtle acute nondisplaced intra-articular fracture involving the base of the fifth metatarsal. Probable additional acute subtle cortical chip fracture of the lateral cortex of the anterior process calcaneus. 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 No additional acute fracture or dislocation identified. IMPRESSION: 1. Acute nondisplaced intra-articular fracture involves the base of the fifth metatarsal. 2. Subacute lateral cortical chip fracture of the anterior process calcaneus. ACT 112: Negative or not required by law. The above report was generated using voice recognition software. It may contain grammatical, syntax or spelling errors. Electronically signed by: Juan Mercer M.D. 08/15/2024 2:50 PM Foot X-Ray 08/15/24 13:33 XR foot RT min 3V routine, XR ankle RT min 3V routine HISTORY: 78 years-old Female fall acute pain of the right foot and ankle status post fall COMPARISON: None TECHNIQUE: 3 views of the right foot with 3 views of the right ankle FINDINGS: FOOT: Demineralized appearance of the bones. Intact cannulated screws fixate the first metatarsal-phalangeal joint. Subtle acute nondisplaced intra-articular fracture involving the base of the fifth metatarsal. Probable additional acute subtle cortical chip fracture of the lateral cortex of the anterior process calcaneus. 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 No additional acute fracture or dislocation identified. IMPRESSION: 1. Acute nondisplaced intra-articular fracture involves the base of the fifth metatarsal. 2. Subacute lateral cortical chip fracture of the anterior process calcaneus. ACT 112: Negative or not required by law. The above report was generated using voice recognition software. It may contain grammatical, syntax or spelling errors. Electronically signed by: Juan Mercer M.D. 08/15/2024 2:50 PM Tibia/Fibula X-Ray 08/15/24 13:33 XR tibia fibula LT 2V CLINICAL HISTORY: Fall. COMPARISON: Left foot radiographs October 11, 2012. FINDINGS: No proximal left tibial or fibular fractures are present. There is an acute fracture of the medial malleolus which is displaced 6 mm. There is also an acute oblique mildly displaced distal left fibular fracture and a probable acute nondisplaced fracture of the posterior distal left tibia. There is mild medial ankle mortise widening. IMPRESSION: 1. Acute mildly displaced left ankle trimalleolar fracture. 2. Mild medial ankle mortise widening. 3. No proximal left tibial or fibular fracture. ACT 112: Negative or not required by law. Electronically signed by: Godfrey Hernandez M.D. 08/15/2024 2:23 PM (2) Closed trimalleolar fracture of left ankle Encounter type: initial encounter Qualified Code(s): S82.852A - Displaced trimalleolar fracture of left lower leg, initial encounter for closed fracture
--- NOTE | 2024-08-21 10:05 | XRay Report ---
XR foot RT min 3V routine CLINICAL HISTORY: fracture COMPARISON: 08/15/2024 FINDINGS: Fracture at the base of the fifth metatarsal remains nondisplaced. Stable instrumented fus ion of the first MTP joint. IMPRESSION: Stable alignment. ACT 112: Negative or not required by law. Electronically signed by: Jameson Munson M.D. 08/21/2024 10:04 AM
[2024-08-21] MEDS: CHOLECALCIFEROL 125 MCG (5,000 UNITS) TAB PO SCH (10:37)
--- NOTE | 2024-08-21 14:25 | Hospitalist Progress Note ---
Date of Service August 21, 2024 Assessment & Plan (1) Left trimalleolar fracture: (2) Fall: (3) Foot fracture, right: Plan 78-year-old female with a mechanical fall when she tripped falling down 3 stairs. She did not have head strike or loss of consciousness. Due to her fall she sustained bilateral foot/ankle fractures. Orthopedics is consulted and following. # left-sided bimalleolar or trimalleolar ankle fractureDr. Alondra consulted reviewed recs from Dr. Cantu - plans ORIF lateral side of ankle 08/22 but unable to fix medial side at this time because of skin wound. Its possible medial side will heal on its own or require further surgery continue DVT prophylaxis with enoxaparin pain control cont scheduled acetaminophen and oxycodone bowel regimen ordered continue PT OT while nonbearing on left lower extremity and cam boot on right foot - mobility improving RCRI 0 points. No further modifiable major risk factors. 30-day perioperative risk low, approximately 3.6%. Proceed to operative repair when indicated per surgical team. last labs CBC and BMP 08/20 were unremarkable # right sided foot fractureorthopedics recommended weight-bear as tolerated with Cam boot - doing well with this not painful standing/walking # hypertension Patient states she has whitecoat hypertension EKG without evidence of LVH, urinalysis without proteinuria - blood pressure has been moderately high most of the time in hospital, however, she has been quite anxious here. she says she is normal at home. I don't think she'll be eager to take medication right now. Consider ambulatory monitoring and PCP follow up I updated her daughter at bedside 08/17 PT and OT are recommending acute rehab but she refuses and wants to go home we discussed this at length on 08/20. We will see how she does postoperatively but if she is moving around as well as she is today she should be able to be home, there are 3 steps to enter but she has adequate family members to help her up the steps, thereafter she can stay on 1 level and her daughter lives less than 5 minutes away and is going to assist DVT PPx: Lovenox Admission and Anticipated Discharge Date Admission Date: August 15, 2024 Subjective Remains anxious and frustrated LLE pain well controlled. No R foot pain. No dyspnea or chest pain. Did pretty well with knee scooter. Physical Exam Physical Exam: PHYSICAL EXAMINATION Last 24h vital signs reviewed, see documentation in flowsheet General: seen working with therapist using knee scooter and later in chair Otherwise exam unchanged 08/21 HEENT: Normocephalic, atraumatic, pupils round and equal, sclerae anicteric, no conjunctival injection, moist mucus membranes Lungs: normal work of breathing Heart: deferred Abdomen: nondistended Extremities: Warm, dry, well-perfused. left lower extremity is in a splint toes are pink and warm, right foot is in a cam walker boot toes are pink and warm - no change 08/21 she seems reasonably steady with knee scooter Neuro: Alert and oriented x 4, face symmetric, moves 4 extremities well Psych: Normal affect and behavior Results & Data Results & Data Vital Signs (Past 12 Hours) Vital Signs Temp Pulse Resp BP Pulse Ox O2 Del Method 08/21/24 12:03 37.1 C 75 16 149/86 H 97 Room Air 08/21/24 07:27 36.9 C 76 14 121/74 96 Room Air PG Care Time/CCT Total # of Minutes Spent Total Time Spent with Patient: Total time spent is greater than 50% in coordination of care (as documented) at patient's floor/unit and/or counseling patient: Coding Level of Care Code 30837 SUB INP/OBS CARE 2/35MIN Diagnoses Left trimalleolar fracture S82.852A Fall W19.XXXA Foot fracture, right S92.901A
[2024-08-22] MEDS ORDERED: ROPIVACAINE 0.5% 5 MG/ML 30 ML VIAL ONE (07:09)
--- NOTE | 2024-08-22 10:00 | Orthopedic Progress Note ---
Date of Service August 22, 2024 Assessment & Plan (1) Left trimalleolar fracture: Plan: Patient scheduled for surgery with Dr. Cantu later this afternoon. She is NPO. Lovenox has been held. Vitamin D level 51.5. Orthoglass splint in place. Good capillary refill and no sensory changes. She reported some pain in the left ankle. Ankle is currently not elevated. Discussed with nursing to have the patient go back into bed and elevate the ankle above heart and reapply some ice. Patient was agreeable with this plan. Continue to remain nonweightbearing on the left. (2) Fracture of right foot: Plan: Repeat x-ray of the right foot redemonstrates the proximal fifth metatarsal fracture with no displacement. Can continue with weightbearing as tolerated in the boot using the walker. Pain medication, ice, and elevation as above. Admission and Anticipated Discharge Date Admission Date: August 15, 2024 Zohaib Calderon is seen sitting in the chair this morning. She states that her left ankle is "cranky", not having pain in the right foot. She has not had anything to eat this morning. Has only had several small sips of water with pain medication. She denies any new numbness or tingling in her toes. Physical Exam Constitutional: Sitting upright in chair. Resting comfortably. Conversational. Cardiovascular: Left toes capillary refill less than 2 seconds Right DP pulse 2+ Musculoskeletal: Left lower extremity: Ortho-Glass splint is in place. Patient able to wiggle toes. Right lower extremity: minimal tenderness in the 5th metatarsal. No ankle tenderness. moves all toes. Neurologic: No sensory deficits in left toes to light touch Results & Data Vital Signs (Past 12 Hours) Vital Signs Temp Pulse Resp BP Pulse Ox O2 Del Method 08/22/24 07:42 97.9 F 76 16 148/82 H 96 Room Air Diagnostic Findings Foot X-Ray 08/21/24 09:06 XR foot RT min 3V routine CLINICAL HISTORY: fracture COMPARISON: 08/15/2024 FINDINGS: Fracture at the base of the fifth metatarsal remains nondisplaced. Stable instrumented fusion of the first MTP joint. IMPRESSION: Stable alignment. ACT 112: Negative or not required by law. Electronically signed by: Jameson Munson M.D. 08/21/2024 10:04 AM (2) Fracture of right foot Encounter type: initial encounter Fracture type: closed Qualified Code(s): S92.901A - Unspecified fracture of right foot, initial encounter for closed fracture
[2024-08-22] MEDS: LACTATED RINGER'S 1,000 ML IV SCH (12:27)
[2024-08-22] MEDS ORDERED: PROPOFOL IV EMULSION 10 MG/ML 20 ML VIAL IV ONE (12:49)
[2024-08-22] MEDS ORDERED: ONDANSETRON INJ 2 MG/ML 2 ML VIAL ONE (12:49)
[2024-08-22] MEDS ORDERED: LIDOCAINE 2% 2 ML VIAL/AMP(20MG/ML) INFIL ONE (12:49)
[2024-08-22] MEDS ORDERED: fentaNYL citrate PF 100 MCG/2 ML VIAL ONE ×4 (12:50→15:49)
[2024-08-22] MEDS ORDERED: ROCURONIUM BROMIDE 10 MG/ML 5 ML VIAL IV ONE (12:50)
[2024-08-22] MEDS ORDERED: ONDANSETRON INJ 2 MG/ML 2 ML VIAL IV PRN (12:59)
[2024-08-22] MEDS ORDERED: HYDROmorphone INJ 2 MG/ML SYR/VIAL IV PRN (12:59)
[2024-08-22] MEDS ORDERED: ATROPINE SULFATE 0.1 MG/ML 10ML SYR IV PRN (12:59)
[2024-08-22] MEDS ORDERED: ePHEDrine sulfate 50 MG/ML AMP IV PRN (12:59)
--- NOTE | 2024-08-22 12:59 | Anesthesiology Consultation ---
Date of Service August 22, 2024 Assessment & Plan Chart Review Chart Review: Acceptable Risk for Surgery and Patient NOT seen in Pre Admission Testing History Surgery Operation Date: 08/22/24 13:00 Proposed Procedures p Left Ankle Open Reduction Internal Fixation - Eddie Cantu MD Height/Weight Height: 5 ft 5.5 in Weight: 95.5 kg Allergies Allergy/AdvReac Type Severity Reaction Status Date / Time bee venom protein (honey bee) Allergy Intermediate HIVES/EXTRA Verified 08/15/24 16:30 SWELLING Medications Home Medications Medication Instructions Recorded Confirmed Last Taken biotin 5 mg tablet 5 mg PO QAM 12/08/18 08/15/24 08/15/24 cholecalciferol (vitamin D3) 125 5,000 unit PO QAM 12/08/18 08/15/24 08/15/24 mcg (5,000 unit) tablet (Vitamin D3) vit C 30 mg-s.smith 250 mg-celery 1 cap PO DAILY 09/27/22 08/15/24 08/15/24 seed 75 mg-grape seed extrt capsule ([place]) famotidine 40 mg tablet 40 mg PO HS 11/10/23 08/15/24 08/14/24 sertraline 25 mg tablet 12.5 mg PO HS 11/10/23 08/15/24 08/14/24 loteprednol etabonate 0.5 % eye 1 drp OPB 3XWK 08/15/24 08/15/24 08/14/24 drops,suspension Active Medications Generic Name Dose Route Start Last Admin Trade Name Freq PRN Reason Stop Dose Admin Acetaminophen 650 mg 08/16/24 09:02 08/22/24 09:08 Acetaminophen 325 Mg Tab PO 09/15/24 09:01 650 mg Q6H KYARA Administration Enoxaparin Sodium 40 mg 08/16/24 09:00 08/21/24 07:51 Enoxaparin Inj 40 Mg/0.4 Ml Syr SQ 09/15/24 08:59 Not Given Q24H KYARA Famotidine 40 mg 08/15/24 21:00 08/21/24 20:59 Famotidine 40 Mg Tablet PO 09/14/24 20:59 40 mg HS KYARA Administration Fluticasone Propionate 1 sprays 08/18/24 21:00 08/22/24 09:08 Fluticasone Propionate Na Spr 16 Gm Btl NA 09/17/24 20:59 1 sprays BID KYARA Administration Lactated Ringer's 1,000 mls @ 15 mls/hr 08/22/24 12:30 08/22/24 12:27 Lr IV 08/25/24 12:29 15 mls/hr .Q24H KYARA Administration Loteprednol Etabonate 1 drops 08/21/24 09:00 08/21/24 07:51 Loteprednol Etabonate 5 Ml Oph Susp OP 09/17/24 12:14 1 drops [id number]@[id number] KYARA Administration Morphine Sulfate 4 mg 08/15/24 17:06 08/15/24 18:46 Morphine Sulfate 4 Mg/Ml 1 Ml Carp\Vial IV 08/29/24 17:05 4 mg Q3H PRN Administration Severe Pain (7,8,9,10) on NRS Polyethylene Glycol 17 gm 08/16/24 10:30 08/22/24 09:08 Polyethylene (Miralax) 17 Gm Pack PO 09/15/24 10:29 Not Given DAILY KYARA Sertraline HCl 12.5 mg 08/15/24 21:00 08/21/24 20:59 Sertraline Hcl 50 Mg Tablet PO 09/14/24 20:59 12.5 mg HS KYARA Administration Vitamin D 125 mcg 08/21/24 09:15 08/22/24 09:09 Cholecalciferol 125 Mcg (5,000 Units) Tab PO 09/20/24 09:14 125 mcg QAM KYARA Administration NPO Date Last Intake of Fluids: 08/21/24 Time Last Intake of Fluids: 22:00 Date Last Intake of Solids: 08/21/24 Time Last Intake of Solids: 18:00 Past Medical History Medical History Hypertension Past Family History Family History Father Stroke Family/Other Hearing loss Other No significant family history Past Surgical History Surgical History Hx of tonsillectomy H/O breast reconstruction Cataract extraction status Post corneal transplant Social History Smoking Status: Never smoker Do You Dip or Chew Tobacco: No Hx Alcohol Use: No Alcohol type: wine alcohol intake frequency: a few times a month Hx Substance Use: No substance use type: does not use Physical Exam Vital Signs Last Vital Signs Temp 36.8 C 08/22/24 12:24 Pulse 69 08/22/24 12:24 Resp 20 08/22/24 12:24 BP 132/89 08/22/24 12:24 Pulse Ox 99 08/22/24 12:24 O2 Del Method Room Air 08/22/24 12:24 O2 Flow Rate 0 08/15/24 13:08 Testing Laboratory Results 08/20/24 05:42 08/20/24 05:42 PT 11.0 Seconds (9.0-12.0) 08/15/24 13:08 INR 1.0 (0.9-1.1) 08/15/24 13:08 APTT 22 Seconds (21-31) 08/15/24 13:08 Urine Color Yellow 08/17/24 06:34 Urine Appearance Clear (Clear) 08/17/24 06:34 Urine pH 6.5 (4.5-7.5) 08/17/24 06:34 Ur Specific [place] 1.014 (1.000-1.030) 08/17/24 06:34 Urine Protein Negative (Negative) 08/17/24 06:34 Urine Glucose (UA) Negative (Negative) 08/17/24 06:34 Urine Ketones Trace (Negative) H 08/17/24 06:34 Urine Nitrite Negative (Negative) 08/17/24 06:34 Ur Leukocyte Esterase Negative (Negative) 08/17/24 06:34
--- NOTE | 2024-08-22 13:07 | History & Physical Bridge Note ---
Date of Service August 22, 2024 History & Physical Bridge Note I have examined the patient, reviewed the History & Physical and in the interval since the performance of the History & Physical I have noted the following changes of clinical significance: no changes noted
[2024-08-22] MEDS ORDERED: BUPIVACAINE 0.5 % 5 MG/1 ML MPF 30ML VIAL ONE (13:16)
[2024-08-22] MEDS ORDERED: MIDAZOLAM HCL 1 MG/ML 2ML VIAL ONE (13:17)
[2024-08-22] MEDS: ceFAZolin 2000MG 2,000 MG/15 ML SYR IV ONE (13:33)
[2024-08-22] MEDS: TRANEXAMIC ACID / 0.7% NACL 1000MG/100ML BAG IV ONE (13:56)
[2024-08-22] MEDS ORDERED: DEXAMETHASONE SOD INJ 4 MG/ML VIAL ONE (15:18)
[2024-08-22] MEDS: VANCOMYCIN HCL 1000MG/20ML VIAL ONE (15:30)
[2024-08-22] MEDS: BUPIVACAINE/EPINEPHRINE 0.5% MPF 1:200,000 30 ML VIAL ONE (15:32)
[2024-08-22] MEDS: LIDOCAINE 1%/EPINEPHRINE 1:100,000 50 ML VIAL ONE (15:33)
[2024-08-22] MEDS ORDERED: SUGAMMADEX SODIUM 200 MG/2 ML VIAL IV ONE (15:42)
--- NOTE | 2024-08-22 16:20 | Operative Report ---
Post Operative Report Pre & Post Diagnosis Operation Date: 08/22/24 13:00 Pre-Op Diagnosis: Left trimalleolar fracture Post-Op Diagnosis: Left trimalleolar fracture I identified the patient and participated in the time-out.: Yes Procedure Operation Date: 08/22/24 13:00 Actual Procedures p Left Ankle Open Reduction Internal Fixation Lateral Malleolus , Syndes mosis(Left) - Eddie Cantu MD Surgeon Eddie Cantu MD Shell Trim Tool Setter Leonila Yanez physicians catalog library assistant no resident or fellow available Estimated Blood Loss 3 Findings Consistent with Post-Op Diagnosis Specimens None Anesthesia Type General Regional Complications none Disposition Accompanied Patient To Recovery: No Disposition: Recovery Room Indications Patient 78 years old. 1 week ago she sustained a trimalleolar fracture dislocation of her left ankle. Surgery was delayed initially due to concerns for swelling. Her swelling has resolved relatively nicely. Unfortunately she has a 15 mm wound on the medial side of her ankle. This was due to tenting of the skin from the medial malleolus. This area indents the skin about a millimeter and is a black eschar with some thinning underneath. It is not infected and there is no drainage. It is possible that this could represent an area of evolving full-thickness skin necrosis medially. There could be some more soft tissue damage deeper. This may take several weeks to resolve. There is a trimalleolar fracture. The lateral side is pristine. Skin wrinkles are present. I would like to fixate the lateral side and if necessary return once the medial soft tissue envelope is stable to perform fixation of the medial malleolus. I thought about percutaneous fixation however the medial malleolus fracture is relatively small and is located anteriorly. I think it would be difficult to address this percutaneously. Additionally if the skin did turn into a defect this could compromise the fixation. The skin incisions for percutaneous fixation would just be a centimeter or so below the damaged skin. I discussed this with the patient and she agreed to proceed.She also fracture the fifth metatarsal of the contralateral leg. She is able to bear weight on that. Description of Procedure Informed consent. Patient identified. She identified the operative site as the left ankle. I marked with my initials. A preoperative surgical timeout was performed. A preop dose of IV antibiotics was given. She was taken to the operating room positioned supine on the OR table with a bump under the left hip and a tourniquet on the left thigh. The left ankle was grossly unstable. Skin wrinkles were present there is no erythema. She had the after mentioned 15 mm diameter wound over the medial malleolus which was just at the level of the fracture site. There was no pitting edema of the lateral side.The leg was scrubbed and then prepped and draped in the usual sterile fashion. DVT prophylaxis with mechanical devices intraoperatively. Postoperatively mobility mechanical devices and Eliquis starting the morning after surgery.TXA given. Limb exsanguinated with the Esmarch. Tourniquet inflated to 275 mmHg. A 10 to 12 cm lateral incision was made beginning at the tip of the fibula and proceeding proximal. The skin was sharply incised and blunt dissection was utilized down to the level of the periosteum. The superficial peroneal nerve was not encountered. Subperiosteal elevation and exposure was performed. There was a long oblique fracture. This was opened and cleaned of hematoma. The fracture was able to be anatomically reduced and then fixated with a 3.5 mm lag screw going from distal posterior to proximal anterior angled in a medial direction. An additional pin was placed for temporary fixation but was removed later. At the anterior aspect of the fracture was encountered a free piece of cartilage which was about a centimeter long 5 mm wide at 1 and and about 2 mm wide on the other end. This was loose sitting with the cartilage surface facing me within the fracture site. It was removed. There was a another small piece of bone adjacent to this at the level of the fracture site which was loose but remained in situ. I left it there. There was a fracture of the anterior colliculus which was flipped and rotated anteriorly. At the end of the surgical procedure this was rotated back into position and fit nicely over the anterior cortical defect. This was the full width of the fibula and about 12 mm long. It was fixated with a 1.25 mm K wire passed from anterior to posterior it was bent over and then impacted into a small drill hole in the distal fracture fragment. Fruit Coordinator images were obtained to document alignment and positioning. After inserting the lag screw a 8 hole one third tubular locking plate from [employer] was pre-bent and affixed to the distal fibula. The fibula had a twist to it such that the proximal 3 screw holes the plate sat off of the bone except for its anterior surface. I placed a screw distal and then proximal in a locking fashion. Monitored with the fluoroscope. I inserted a total of 3 unicortical screws distally and 3 bicortical locking screws proximally which gave excellent fixation. The syndesmosis showed several millimeters of laxity. The ankle was placed in the neutral dorsiflexion a small incision was made percutaneously just proximal to the medial wound and bluntly dissected down to the bone. A pointed tenaculum was introduced across the ankle capturing on the screw and the laterally and bone medially. The syndesmosis was reduced and stabilized and then it was neutralized with a 3 cortical 3.5 millimeter screw. It did not go through all 4 cortices by design just in case there was medial soft tissue compromise. This stabilized the syndesmosis. Tourniquet was let down. Meticulous hemostasis and copious irrigation. About 2/3-3/4 of a gram of vancomycin was distributed over different layers of the wound at the time of closure. The medial side was irrigated and closed with a simple 3-0 nylon horizontal mattress stitch.Fruit Coordinator fluoroscopic images were obtained. The ankle mortise and syndesmosis were intact and aligned. The syndesmosis screw was in good position. The medial fracture was in reasonable alignment but not anatomic. There was a shell like posterior malleolar fracture which did not require fixation. The skin was then carefully closed in layers with 0 to reapproximate the periosteum and deep soft tissues over the distal two thirds of the incision. Proximally there was nothing to repair. The skin was then closed with 3-0 Vicryl and laci. The leg was cleaned with wet and dry sponges saw sterile dressing was applied Xeroform 4 x 4's ABD followed by a posterior splint with U stirrup. Ankle neutral position. Well-padded. Heel padded.She was then awakened from anesthesia without difficulty and taken to the recovery room in stable condition. There were no specimens or complications counts were correct and blood loss was 3 cc. At the conclusion of the operation I spoke with patient's daughter informed her my findings and gave postop instructions. She will begin Eliquis the morning after surgery. She will be nonweightbearing on the surgical leg for period of at least 6 weeks. We may need to return to the OR to fix the medial side depending on circumstances. It is conceivable that this may heal on its own and that further surgery may not be necessary. I attest to the content of the Intraoperative Record and any orders documented therein. Any exceptions are noted below.
--- NOTE | 2024-08-22 16:24 | Operative Report ---
Post Operative Report Pre & Post Diagnosis Operation Date: 08/22/24 13:00 Pre-Op Diagnosis: Left trimalleolar fracture Post-Op Diagnosis: Left trimalleolar fracture I identified the patient and participated in the time-out.: Yes Procedure Operation Date: 08/22/24 13:00 Actual Procedures p Left Ankle Open Reduction Internal Fixation Lateral Malleolus , Syndes mosis(Left) - Eddie Cantu MD Surgeon Eddie Cantu M.D. Metal Furniture Assembler Leonila Yanez physicians fleet assistant no resident or fellow available Estimated Blood Loss 3 Findings Consistent with Post-Op Diagnosis Specimens None Anesthesia Type General Regional Description of Procedure Patient was taken to the operating room, placed under general anesthesia with a peripheral nerve block given preoperatively. Time out performed, prepped and draped in routine sterile fashion. She was given 2 gm IV Ancef for surgical prophylaxis. She was given 1gm IV TXA for bleeding prophylaxis. I was present during the entire case and assisted with tissue retraction, positioning, reduction of fracture, implantation of hardware, closure, dressings and splint. Please see Dr. Cantu's operative report for further detail. Patient was awakened and taken to the recovery room in stable condition. I attest to the content of the Intraoperative Record and any orders documented therein. Any exceptions are noted below.
[2024-08-22] MEDS: fentaNYL citrate PF 100 MCG/2 ML VIAL IV PRN (16:48)
[2024-08-22] MEDS ORDERED: NALOXONE HCL 0.4 MG/1 ML VIAL/CARP IV PRN (17:26)
--- NOTE | 2024-08-22 17:29 | Anesthesiology Progress Note ---
Date of Service August 22, 2024 Anesthesia Post Procedure Vital Signs Vital Signs: Temp Pulse Pulse Resp BP BP Pulse Ox 08/22/24 17:10 100 H 18 163/83 H 96 08/22/24 17:00 36.5 C 98 H 18 159/75 H 96 08/22/24 16:50 103 H 20 164/78 H 90 08/22/24 16:40 104 H 18 151/75 H 93 08/22/24 16:30 108 H 22 162/84 H 94 08/22/24 16:19 36.4 C L 110 H 16 147/69 H 95 08/22/24 12:24 36.8 C 69 20 132/89 99 08/22/24 07:42 36.6 C 76 16 148/82 H 96 08/21/24 19:29 36.6 C 78 18 157/83 H 96 O2 Del Method O2 Flow Rate 08/22/24 17:10 Nasal Cannula 2 08/22/24 17:00 Nasal Cannula 2 08/22/24 16:50 Room Air 08/22/24 16:40 Room Air 08/22/24 16:30 Oxymask 3 08/22/24 16:19 Oxymask 10 08/22/24 12:24 Room Air 08/22/24 07:42 Room Air 08/21/24 19:29 Room Air Pain Intensity Right Ankle: Pain Intensity: 6 Back: Pain Intensity: 3 Left Ankle: Pain Intensity: 4 Transfer of Care Handoff Completed per policy Notes Mental Status: alert / awake / arousable and participated in evaluation Patient Amnestic to Procedure: Yes Nausea / Vomiting: adequately controlled Pain: adequately controlled Airway Patency, RR, SpO2: stable & adequate BP & HR: stable & adequate Hydration State: stable & adequate Anesthetic Complications: no major complications apparent and Pt Satisfied with anesthetic care
--- NOTE | 2024-08-22 17:45 | Hospitalist Progress Note ---
Date of Service August 22, 2024 Assessment & Plan (1) Left trimalleolar fracture: (2) Fall: (3) Foot fracture, right: Plan 78-year-old female with a mechanical fall when she tripped falling down 3 stairs. She did not have head strike or loss of consciousness. Due to her fall, she sustained bilateral foot/ankle fractures. Orthopedics is consulted and following. #Left-sided bimalleolar or trimalleolar ankle fracture reviewed recs from Dr. Cantu - ORIF lateral side of ankle 08/22 Unable to fix medial side at this time because of skin wound. Its possible medial side will heal on its own, or require further surgery - Initiate Eliquis 2.5 mg p.o. BID on 08/23 pending AM labs pain control cont scheduled acetaminophen and oxycodone bowel regimen ordered Left lower extremity non-weight bearing for at least 6 weeks #Right sided foot fracture - CAM boot on right foot - Tx as above #Hypertension Patient states she has white-coat hypertension EKG without evidence of LVH, urinalysis without proteinuria - blood pressure has been moderately high most of the time in hospital, however, she has been quite anxious here. she says she is normal at home. I don't think she'll be eager to take medication right now. Consider ambulatory monitoring and PCP follow up Provided updates to daughter/ at bedside on 08/22 regarding treatment plan/procedure. PT and OT are recommending acute rehab but she refuses and wants to go home we discussed this at length on 08/20. We will see how she does postoperatively but if she is moving around as well as she is today she should be able to be home. There are 3 steps to enter but she has adequate family members to help her up the steps, thereafter she can stay on 1 level and her daughter lives less than 5 minutes away and is going to assist Disposition: Continued stay on MedSurg following ORIF on 08/22 DVT PPx: Held on 08/22 in the setting of acute procedure; plan to start patient on Eliquis 2.5mg p.o BID on the morning of 08/23 Admission and Anticipated Discharge Date Admission Date: August 15, 2024 Subjective Mrs. Prado reports she is doing well today, but is still having significant pain in her left ankle. She rates the pain as tolerable when she is resting it/elevating it in bed, but reports it is 5/10 with all movements. Patient has not had anything to eat or drink today. She has had a decreased appetite. Additionally she does report she has had trouble sleeping as she is a "side sle eper". Her and daughter are at bedside. Acute rehab upon discharge was again discussed, however both patient and patient's family are adamant that they would like to return home; open to home health. ROS: Patient endorses left ankle pain, and neck/shoulder tightness (which patient attributes to stress and sleeping in hospital bed). Patient denies fever, chills, night sweats, dizziness/lightheadedness, headache, chest pain, chest palpitations, SOB, cough, abdominal pain, N/V/D, saddle anesthesia, or numbness or tingling in the legs. Addendum at 1700: Patient reassessed in the PACU following procedure. She reports she is "out of it", however, she is alert and oriented x 3. Patient reports she feels "sore" in her left ankle. She does demonstrate the ability to wiggle her toes and report sensation is intact and symmetric in lower extremity bilaterally assessed via light touch. Spoke with patient's family at bedside (daughter and ), and gave updates regarding procedure. Updated on plan to start blood thinner tomorrow morning pending a.m. labs. Patient's daughter reports that, she is working tomorrow, but was made aware that patient may require a couple extra days in the hospital following her surgery. Review of Systems Review of Systems: See HPI above Physical Exam Physical Exam: Obtained prior to procedure on 08/22: General: no acute distress; family at bedside; pleasant affect; non-toxic appearing; well-nourished; cooperative; SpO2 99% on RA HEENT: normocephalic, atraumatic; no scleral icterus; PERRLA w/ EOMs intact; vision and hearing grossly intact Neck: supple; no lymphadenopathy; trachea midline Skin: warm, dry without signs of tenting; no cyanosis; no rashes, bruising, lesions, or erythema noted CV: chest wall NTP; RRR; S1/S2 normal; no murmurs/rubs/gallops; pulses intact and symmetric at radial, DP, and PT Lungs: no acute respiratory distress; symmetrical chest wall expansion; clear breath sounds across all lung king w/o adventitious sounds; no wheezing ABD: Soft, NTP; BS present; no rebound/guarding; no distention MSK: no tics or fasciculations; no edema noted in the LEs b/l, nonerythematous (note left ankle wrapped/dressed) LE: Patient demonstrates ability wiggle toes bilaterally; she reports sensation is intact and symmetric in the lower extremities bilaterally; neurovascularly intact Neuro: A&Ox3; normal mood and affect; fluent speech; no focal deficits Results & Data Results & Data Vital Signs (Past 12 Hours) Vital Signs Temp Pulse Pulse Resp BP BP Pulse Ox 08/22/24 17:30 36.6 C 104 H 18 165/80 H 93 08/22/24 17:10 100 H 18 163/83 H 96 08/22/24 17:00 36.5 C 98 H 18 159/75 H 96 08/22/24 16:50 103 H 20 164/78 H 90 08/22/24 16:40 104 H 18 151/75 H 93 08/22/24 16:30 108 H 22 162/84 H 94 08/22/24 16:19 36.4 C L 110 H 16 147/69 H 95 08/22/24 12:24 36.8 C 69 20 132/89 99 08/22/24 07:42 36.6 C 76 16 148/82 H 96 O2 Del Method O2 Flow Rate 08/22/24 17:30 Room Air 08/22/24 17:10 Nasal Cannula 2 08/22/24 17:00 Nasal Cannula 2 08/22/24 16:50 Room Air 08/22/24 16:40 Room Air 08/22/24 16:30 Oxymask 3 08/22/24 16:19 Oxymask 10 08/22/24 12:24 Room Air 08/22/24 07:42 Room Air PG Care Time/CCT Total # of Minutes Spent Total Time Spent with Patient: Total time spent is greater than 50% in coordination of care (as documented) at patient's floor/unit and/or counseling patient: Coding [place] [address] SUB INP/OBS CARE 2/35MIN Patient Type Established History Comprehensive Exam Comprehensive Medical Decision Making Moderate Complexity Diagnoses Left trimalleolar fracture S82.852A Fall W19.XXXA Foot fracture, right S94.856K
[2024-08-22] MEDS: SODIUM CHLORIDE 0.9% 1,000 ML IV SCH (18:10)
[2024-08-22] MEDS: LIDOCAINE 5% 1 PATCH TD STA (20:31)
[2024-08-22] MEDS: TRANEXAMIC ACID / 0.7% NACL 1,000 MG/100 ML BAG IV SCH (22:11)
[2024-08-22] MEDS: ceFAZolin 2000MG 2,000 MG/15 ML SYR IV SCH (22:11)
[2024-08-23 06:09] LABS: Hematocrit (blood only) 38.5 % (37.0-47.0); Hemoglobin 12.8 g/dl (12.0-16.0); Mean Corpuscular Hemoglobin 30.2 pg (25.0-34.0); Mean Corpuscular Hgb Conc 33.2 g/dL (32.0-36.0); Mean Corpuscular Volume 90.8 fL (80.0-100.0); Mean Platelet Volume 10.2 fL (9.4-12.4); Platelet Count 195 K/uL (130-400); RDW Coefficient of Variation 12.9 % (11.5-14.5); RDW Standard Deviation 42.4 fL (36.4-46.3); Red Blood Count 4.24 M/uL (4.20-5.40); White Blood Count 11.89 K/ul (4.8-10.8)
[2024-08-23 06:29] LABS: BUN Creatinine Ratio 22.8 (10-20); Calcium 8.8 mg/dl (8.6-10.3); Creatinine Clr Calc Pharmacy 67.7 ml/min; Potassium 4.1 mmol/L (3.5-5.1)
[2024-08-23] MEDS: APIXABAN 2.5 MG TAB PO SCH (08:59)
--- NOTE | 2024-08-23 09:31 | Orthopedic Progress Note ---
Date of Service August 23, 2024 Assessment & Plan (1) Left trimalleolar fracture: Plan: POD 1-ORIF left ankle fracture with Dr. Cantu PT and OT to start today. Eliquis 2.5 mg p.o. twice daily x 46 weeks after surgery for DVT prophylaxis. Ice to left ankle as needed for pain or swelling. Encouraged elevation above her heart frequently. I do think it is fine for her to sit in a chair for a little while but she should also lay in bed and elevate her ankle a few hours in between getting out of bed and sitting. Regular diet. Pain medication as prescribed. Allowed for full range of motion of her knee and toes as tolerated. Continue a cam boot for the right ankle and foot when out of bed. May weight-bear as tolerated on her right lower extremity, nonweightbearing on left lower extremity. Out of bed with a walker or knee scooter and assistance. Okay from orthopedic standpoint for discharge when medically stable and safe from physical therapy and Occupational Therapy. Follow-up as scheduled with Dr. Cantu. Findings will be discussed with Dr. Cantu. Script for wheelchair provided today. Due to function and mobility limitations cannot be safely resolved with the use of a cane or walker. (2) Fracture of right foot: Plan: Right foot proximal fifth metatarsal fracture with no displacement. Can continue with weightbearing as tolerated in the boot using the walker Pain medication, ice, and elevation as above. Follow up as outpatient as scheduled. Admission and Anticipated Discharge Date Admission Date: August 15, 2024 Subjective Patient sitting up in her chair. She is feeling well. Denies any pain of her left ankle. States that she is able to move it better today than she had been previously. She has been up since 3 AM. She ambulated to the bathroom with the assistance of nursing. She is very anxious to go home. She would like to leave today now that surgery has been completed. She feels that she is able to take care of herself at home and maneuver with the knee scooter. She does not like the walker and use the knee scooter and PT yesterday and states that she did well with that. Apparently she was talking to case management about a knee scooter, walker and a wheelchair. I will communicate with them. She denies any postoperative nausea, vomiting, lightheadedness or dizziness. Overall feels well. Physical Exam Musculoskeletal: Exam focused on her left lower extremity: The splint is clean, dry and intact. She is able to independently lift her left leg. She can fully flex her left knee. Toes move freely. Full sensation of the left toes. Capillary refill is brisk. Toes are warm. Leg is elevated on a few pillows on top of the stool when she is sitting in her chair. Exam of her right lower extremity: Boot is in place. Minimal swelling. Able to wiggle her toes in the boot. Sensation is normal. Results & Data Vital Signs (Past 12 Hours) Vital Signs Temp Pulse Resp BP BP Pulse Ox O2 Del Method 08/23/24 07:27 36.7 C 74 16 148/84 H 98 Room Air 08/23/24 02:49 36.7 C 78 16 150/86 H 97 Room Air 08/22/24 22:51 36.6 C 89 16 163/99 H 95 Room Air Laboratory Results 08/23/24 Range/Units 05:28 WBC 11.89 H (4.8-10.8) K/ul RBC 4.24 (4.20-5.40) M/uL Hgb 12.8 (12.0-16.0) g/dl Hct 38.5 (37.0-47.0) % MCV 90.8 (80.0-100.0) fL MCH 30.2 (25.0-34.0) pg MCHC 33.2 (32.0-36.0) g/dL RDW Std Deviation 42.4 (36.4-46.3) fL RDW Coeff of Oscar 12.9 (11.5-14.5) % Plt Count 195 (130-400) K/uL MPV 10.2 (9.4-12.4) fL Sodium 138 (136-145) mmol/L Potassium 4.1 (3.5-5.1) mmol/L Chloride 105 (98-107) mmol/L Carbon Dioxide 26 (21-32) mmol/L Anion Gap 7 (3-11) BUN 18 (6-23) mg/dl Creatinine 0.79 (0.6-1.2) mg/dl Est Cr Clr Drug Dosing 67.7 ml/min eGFR 76.52 BUN/Creatinine Ratio 22.8 H (10-20) Glucose 115 H (70-99(Fasting)) mg/dl Calcium 8.8 (8.6-10.3) mg/dl 25-OH Vitamin D Total 48.3 (30-100) ng/ml (2) Fracture of right foot Encounter type: initial encounter Fracture type: closed Qualified Code(s): S92.901A - Unspecified fracture of right foot, initial encounter for closed fracture
--- NOTE | 2024-08-23 12:56 | Hospitalist Progress Note ---
Date of Service August 23, 2024 Assessment & Plan (1) Left trimalleolar fracture: (2) Fall: (3) Foot fracture, right: Plan 78-year-old female with a mechanical fall when she tripped falling down 3 stairs. She did not have head strike or loss of consciousness. Due to her fall, she sustained bilateral foot/ankle fractures. Orthopedics is consulted and following. #Left-sided bimalleolar or trimalleolar ankle fracture reviewed recs from Dr. Cantu - ORIF lateral side of ankle 08/22 Unable to fix medial side at this time because of skin wound. Its possible medial side will heal on its own, or require further surgery - Per orthopedics, safe for discharge once medically cleared - Per PT/OT, recommend acute rehab; however patient/family declining at this time - Continue Eliquis BID Pain control cont scheduled acetaminophen and oxycodone Bowel regimen ordered Left lower extremity non-weight bearing for at least 6 weeks #Right sided foot fracture - CAM boot on right foot - Tx as above #Hypertension Patient states she has white-coat hypertension EKG without evidence of LVH, urinalysis without proteinuria - Blood pressure has been moderately high most of the time in hospital, h owever, she has been quite anxious due to her procedure #Leukocytosis - Mild; white blood cell count 11.89 on 08/23 - Clinically, patient denies infectious symptoms such as fever, cough, or burning urination;? Stress demargination in the setting of acute surgery - Continue to monitor with daily CBC #Upper back pain/tightness - Chronic, but patient attributes to sleeping in bed - Heating K-pad PRN - Lidocaine patch as needed Note: PT and OT are recommending acute rehab but she refuses and wants to go home we discussed this at length on 08/20. We will see how she does postoperatively but if she is moving around as well as she is today she should be able to be home. There are 3 steps to enter but she has adequate family members to help her up the steps, thereafter she can stay on 1 level and her daughter lives less than 5 minutes away and is going to assist. Patient has a good support structure at home. Disposition: Continued stay on MedSurg following ORIF on 08/22; patient has declined acute rehab despite PT/OT recommendation; CM aware, attempting to set up HH; hopeful discharge on 08/24 DVT PPx: Low dose Eliquis twice daily Admission and Anticipated Discharge Date Admission Date: August 15, 2024 Subjective Mrs. Prado is sitting upright in her chair this morning with left leg elevated she reports that she has 0/10 pain in her left ankle when it is at rest. Patient slept well last night up until 3 AM when she woke up and could not fall back asleep; however, she reports she was asleep early in the evening and got approximately 7 hours of sleep. She has been able to get up to the bathroom with assistance 2-3 times a day. No change in urinary or bowel habits. No numbness or tingling in her feet. Patient reports she is feeling much better today, and reports that her upper back pain/shoulder pain has resolved with lidocaine patch. While she is eager to return home and see her 3 dogs (rizvi retriever, goldendoodle, and beagle/corgi mix), she is amenable to staying the night as CM still setting up HH, and her daughter/grandson are currently rearranging furniture at home for her arrival/setting up her knee scooter/obtaining a shower chair. Overall, she is in good spirits today. ROS: Patient endorses lightheadedness when getting up to the side of the bed. Patient denies fever, chills, night sweats, headache, chest pain, chest palpitations, SOB, abdominal pain, N/V/D, blood in the urine or stool, melena, or numbness or tingling in the legs/feet. Review of Systems Review of Systems: See HPI above Physical Exam Physical Exam: General: no acute distress; non-toxic appearing; well-nourished; cooperative; SpO2 98% on RA HEENT: normocephalic, atraumatic; no scleral icterus; PERRLA; vision and hearing intact Neck: supple; no lymphadenopathy; trachea midline Skin: warm, dry without signs of tenting; no cyanosis; no rashes, bruising, lesions, or erythema noted CV: chest wall NTP; RRR; S1/S2 normal; no murmurs/rubs/gallops; pulses intact and symmetric at radial, DP, and PT Lungs: no acute respiratory distress; symmetrical chest wall expansion; clear breath sounds across all lung king w/o adventitious sounds; no wheezing ABD: Soft, NTP; BS present; no rebound/guarding; no distention MSK: no tics or fasciculations; no edema noted in the LEs b/l, nonerythematous; patient demonstrates the ability to wiggle toes bilaterally; patient exhibits active ROM of her left ankle while in the cast Neuro: A&Ox3; normal mood and affect; fluent speech; no focal deficits; patient report sensation is intact and symmetric in the toes bilaterally assessed via light touch Results & Data Results & Data Vital Signs (Past 12 Hours) Vital Signs Temp Pulse Resp BP BP Pulse Ox O2 Del Method 08/23/24 07:27 36.7 C 74 16 148/84 H 98 Room Air 08/23/24 02:49 36.7 C 78 16 150/86 H 97 Room Air PG Care Time/CCT Total # of Minutes Spent Total Time Spent with Patient: Total time spent is greater than 50% in coordination of care (as documented) at patient's floor/unit and/or counseling patient: Coding [place] [address] SUB INP/OBS CARE 2/35MIN Patient Type Established History Comprehensive Exam Comprehensive Medical Decision Making Moderate Complexity Diagnoses Left trimalleolar fracture S82.852A Fall W19.XXXA Foot fracture, right S92.901A
--- NOTE | 2024-08-23 13:10 | Fluoroscopy Report ---
FL ankle LT min 3V RTN CLINICAL HISTORY: ORIF LT ANKLE COMPARISON STUDY: 08/15/2024 FLUOROSCOPY TIME: 34 seconds FLUOROSCOPY IMAGES: 10 EXPOSURE DOSE: 1 mGy FINDINGS: Fluoroscopy was provided for internal fixation of the left ankle. IMPRESSION: Intraoperative fluoroscopy. ACT 112: Negative or not required by law. Electronically signed by: Jameson Munson M.D. 08/23/2024 1:09 PM
[2024-08-24] MEDS: oxyCODONE HCL IR 5 MG TAB (IMMEDIATE RELEASE) PO PRN (01:05)
[2024-08-24 06:38] LABS: Hematocrit (blood only) 35.2 % (37.0-47.0); Mean Corpuscular Hemoglobin 30.8 pg (25.0-34.0); Mean Corpuscular Hgb Conc 34.1 g/dL (32.0-36.0); Mean Corpuscular Volume 90.5 fL (80.0-100.0); Mean Platelet Volume 10.5 fL (9.4-12.4); Platelet Count 221 K/uL (130-400); RDW Standard Deviation 42.9 fL (36.4-46.3); Red Blood Count 3.89 M/uL (4.20-5.40); White Blood Count 9.35 K/ul (4.8-10.8)
[2024-08-24 07:26] VITALS: RESP 16; TEMP 97.9; O2SAT 94
--- NOTE | 2024-08-24 07:51 | Discharge Summary ---
Discharge Summary Date of Service August 24, 2024 Principal Dx & Hospital Course #1 = Principal Diagnosis (1) Left trimalleolar fracture: (2) Fall: (3) Foot fracture, right: Plan 78-year-old female with a mechanical fall when she tripped falling down 3 stairs. She did not have head strike or loss of consciousness. Due to her fall, she sustained bilateral foot/ankle fractures. Orthopedics is consulted and following. Patient has declined acute rehab. Plan is to send patient home with home health/PT on 08/24. #Left-sided bimalleolar or trimalleolar ankle fracture reviewed recs from Dr. Cantu - ORIF lateral side of ankle 08/22 Unable to fix medial side at this time because of skin wound. Its possible medial side will heal on its own, or require further surgery - Per orthopedics, safe for discharge once medically cleared - Per PT/OT, recommend acute rehab; however patient/family declining at this time - Continue Eliquis BID Pain control cont scheduled acetaminophen and oxycodone Bowel regimen ordered Left lower extremity non-weight bearing for at least 6 weeks #Right sided foot fracture - CAM boot on right foot - Tx as above #Hypertension Patient states she has white-coat hypertension EKG without evidence of LVH, urinalysis without proteinuria - Blood pressure has been moderately high most of the time in hospital, however, she has been quite anxious due to her procedure #Leukocytosis - Mild; white blood cell count 11.89 on 08/23 - Clinically, patient denies infectious symptoms such as fever, cough, or burning urination;? Stress demargination in the setting of acute surgery - Continue to monitor with daily CBC #Upper back pain/tightness - Chronic, but patient attributes to sleeping in bed - Heating K-pad PRN - Lidocaine patch as needed Note: PT and OT are recommending acute rehab but she refuses and wants to go home we discussed this at length on 08/20. We will see how she does postoperatively but if she is moving around as well as she is today she should be able to be home. There are 3 steps to enter but she has adequate family members to help her up the steps, thereafter she can stay on 1 level and her daughter lives less than 5 minutes away and is going to assist. Patient has a good support structure at home. CM currently has referral out to [facility] for home health/PT. Disposition: Return home with HH/PT on 08/24 DVT PPx: Continue low dose Eliquis twice daily Admission HPI Per Admitting Provider Yumiko is a 78-year-old female with past medical history of sensorineural hearing loss BPH who fell down the stairs with immediate pain in both ankles left greater than right and he was not able to bear weight or ambulate subsequent to her fall. She fell down 3 stairs and is not on blood thinners. She did not have any syncope/presyncope secondary to her fall, reports that she fell because she tripped. She is not on blood thinners and had a fall down 3 stairs (less than 10 feet), does not meet trauma alert criteria Baseline EKG: Normal sinus rhythm, QTc 422 Tripped over the texture of her stairs. Fell down three steps. No head strike or loss of conciousness. No neck pain. Just finished [facility] this past week for chronically shoulder discomfort/t ension, other than this no arm/shoulder discomfort. No recent chest pain, chest pressure. No shortness of breath/dyspnea. Has not been sick recently. No fever chills or sweats. 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 Tonsillectomy as a child. 2x sections. History of two bunyon removal surgeries 1x at [facility] [address]. Leone. LEFT masectomy and reconstruction. No residual cancer, sx was 25 years ago. Was treated transiently with adjunct cancer. No known recurrence. Medical History: Reviewed Medications: Reviewed. Surgical History: Reviewed Family history: Reviewed Allergies: Reviewed. NKDA. +bee venom allergy Social History: No tobacco product use. Rare social etoh use. No daily etoh use. Code Status:FUll Admission Exam Per Admitting Provider General: A&Ox3. NAD. Cooperative. HEENT: Atraumatic, normocephalic. Vision/hearing grossly intact. No scalp hematomas/lacerations Pulm: CTAB A&P. -wheezes, -rales, -rhonchi. Symmetrical chest rise. No increased work of breathing. No respiratory distress. Cardiac: RRR, -mrg. Radial pulses intact and symmetrical. Abdominal: Nontender, nondistended, soft. BS present. Ext: RIGHT foot: Mild ankle swelling. DP pulse intact to palpation. Cap refill in the hallux brisk. Sensation to soft touch intact in plantar and dorsal foot. Able to wiggle toes without difficulty. LEFT foot: wrapped in acewrap. Able to wiggle toes. Sensation in toes intact. DP pulse intact to palpation. Unable to assess PT. Discharge Exam General: no acute distress; non-toxic appearing; well-nourished; cooperative; SpO2 98% on RA HEENT: normocephalic, atraumatic; no scleral icterus; PERRLA; vision and hearing intact Neck: supple; no lymphadenopathy; trachea midline Skin: warm, dry without signs of tenting; no cyanosis; no rashes, bruising, lesions, or erythema noted CV: chest wall NTP; RRR; S1/S2 normal; no murmurs/rubs/gallops; pulses intact and symmetric at radial, DP, and PT Lungs: no acute respiratory distress; symmetrical chest wall expansion; clear breath sounds across all lung king w/o adventitious sounds; no wheezing ABD: Soft, NTP; BS present; no rebound/guarding; no distention MSK: no tics or fasciculations; no edema noted in the LEs b/l, nonerythematous; patient demonstrates the ability to wiggle toes bilaterally; patient exhibits active ROM of her left ankle while in the cast Neuro: A&Ox3; normal mood and affect; fluent speech; no focal deficits; patient report sensation is intact and symmetric in the toes bilaterally assessed via light touch Discharge Plan Discharge Items Patient Disposition: Home - Home Health Services Reason For Visit: B/L ANKLE FRACTURE Discharge Diagnosis: Left trimalleolar fracture, intra-articular fracture within the fifth metatarsal Condition on Discharge: Good Activity: Per Instructions section Lifting: Wait until after follow-up appointment Bathing: Keep incision dry Sexual Activity: Wait until after follow-up appointment Exercise/Sports: Wait until after follow-up appointment Weightbearing: Left non-weightbearing and Right weightbearing Non-emergency contact: Surgeon Call non-emergency contact if: you have any medication questions, your symptoms worsen, your pain is not controlled, your temperature is above 101, your wound has increased redness and your wound has increased drainage Follow-up/Referrals: Uma López MD [Primary Care Provider] - Eddie Cantu MD [Surgeon] - 09/05/24 9:30 am Diet: Regular Addtl Attending Provider Instructions: You were hospitalized at [facility] from 08/15 to 08/24 after sustaining a fall down 3 steps. On arrival, you are found to have a trimalleola r fracture of your left ankle, as well as a fracture in your right foot. You underwent a procedure with Dr. Cantu (orthopedic surgeon) for a left ankle open reduction internal fixation (ORIF) on 08/22. Following this procedure, acute rehab was recommended, but this was declined in favor of PT via home health. You have been accepted by [facility] home health. It should be noted that you are at very high risk of falls over the next several weeks. Please take your time when getting up to use the bathroom, and do not attempt to ambulate independently until you build up strength and conditioning. Please continue to ice and elevate your left ankle regularly. In terms of pain medications, you declined opiates at time of discharge. It is recommended that you continue to take Tylenol as needed for your ankle pain. Please do not exceed 3000 mg of Tylenol per day. You can take 1000 mg (2 extra strength tablets) every 8 hours as needed. Alternatively, this can be broken up into 500 mg every 4 hours. If you choose to rotate in additional tghm-maz-zgmrtgz pain medicine such as ibuprofen (NSAIDs), please alternate taking Tylenol and ibuprofen every 4 hours. It was discussed at time of discharge that NSAIDs also increased risk of bleeding and GI discomfort. For this reason, it was recommended that you avoid NSAIDs, or discussed taking a proton pump inhibitor (PPI) such as omeprazole or pantoprazole with your PCP prior to including this and your pain regimen. Additionally, you will be sent home on a blood thinner called Eliquis. This blood thinner should be taken for 4 to 6 weeks to prevent blood clots in your left leg. If you develop any new or concerning symptoms, such as fever, chest pain, pain with deep breaths, shortness of breath, or intractable pain/swelling in the ankle, or if you have any new concerns please return to the emergency department immediately. It was a pleasure taking care of you. Please reach out with any questions or concerns. Sincerely, The hospital medicine team at [facility] Gladys Splitting Machine Operator Helper Provider Instructions: Orthopedic Instructions: - Non weight bearing left leg at all times. - Use walker/knee scooter or wheelchair to assist with ambulation at all times - Use CAM boot on right ankle/foot when out of bed to aid with walking. - May do range of motion right foot and ankle as tolerated - Keep splint on left leg at all times, keep it clean and dry. - Ice to left ankle/right ankle/foot as needed for pain/swelling - Elevate left leg/right foot above your heart to relieve pain and swelling. - Eliquis 2.5 mg twice daily x 4-6 weeks after your surgery. Please continue until discontinued by Dr. Cantu - Follow up with Dr. Cantu as scheduled. Call [phone] with any increased pain, swelling, redness, drainage, fevers or chills, need to confirm or reschedule appointment. Pending Studies at Discharge: No Stand-Alone Forms: My [facility], Smoking Cessation Medications and DC Order Prescriptions: New Eliquis 2.5 mg Tablet 2.5 mg PO BID Qty: 60 0RF Continued biotin 5 mg Tablet 5 mg PO QAM Patient Comments: Patient unsure of strength cholecalciferol (vitamin D3) [Vitamin D3] 5,000 unit Tablet 5,000 unit PO QAM [place] [id number] mg Capsule 1 cap PO DAILY loteprednol etabonate 0.5 % drops,suspension 1 drp OPB 3XWK Rx Instructions: MON, WED & FRI. famotidine 40 mg tablet 40 mg PO HS sertraline 25 mg tablet 12.5 mg PO HS Discharge Orders: Discharge Order (Routine); Ordered 08/24/24 Ordered By: Ethan Burden/Other Patient Handouts: Treating Ankle Fractures, Ankle Fracture ORIF Admission Data Admit Date/Time: 08/15/24 17:12 Attending Provider: Jc Zambrano Admit Provider: Eddie Adkins Primary Care Provider: Uma López Other Providers: Eddie Adkins; Eddie Cantu; [facility],Home Healthcare Other Interventions: Discharge Summary Assessment (RN) Last Done: 08/24/24 13:36 Hospital Stay Data Consultations 08/15/24 16:14 ED Decision to Admit Stat 08/15/24 17:07 Consult Orthopedic Surgery Routine Procedures Performed Operation Date: 08/22/24 13:00 Actual Procedures p Left Ankle Open Reduction Internal Fixation Lateral Malleolus , Syndesmosis(Left) - Eddie Cantu MD Diagnostic Imagining Performed 08/22/24 13:15 US - OR guided needle placemen Routine 08/23/24 FL ankle LT min 3V RTN Routine Discharge Instructions Given to Patient (Per Discharging Provider) You were hospitalized at [facility] from 08/15 to 08/24 after sustaining a fall down 3 steps. On arrival, you are found to have a trimalleolar fracture of your left ankle, as well as a fracture in your right foot. You underwent a procedure with Dr. Cantu (orthopedic surgeon) for a left ankle open reduction internal fixation (ORIF) on 08/22. Following this procedure, acute rehab was recommended, but this was declined in favor of PT via home health. You have been accepted by [facility] home health. It should be noted that you are at very high risk of falls over the next several weeks. Please take your time when getting up to use the bathroom, and do not attempt to ambulate independently until you build up strength and conditioning. Please continue to ice and elevate your left ankle regularly. In terms of pain medications, you declined opiates at time of discharge. It is recommended that you continue to take Tylenol as needed for your ankle pain. Please do not exceed 3000 mg of Tylenol per day. You can take 1000 mg (2 extra strength tablets) every 8 hours as needed. Alternatively, this can be broken up into 500 mg every 4 hours. If you choose to rotate in additional eyoq-njh-yxgkral pain medicine such as ibuprofen (NSAIDs), please alternate taking Tylenol and ibuprofen every 4 hours. It was discussed at time of discharge that NSAIDs also increased risk of bleeding and GI discomfort. For this reason, it was recommended that you avoid NSAIDs, or discussed taking a proton pump inhibitor (PPI) such as omeprazole or pantoprazole with your PCP prior to including this and your pain regimen. Additionally, you will be sent home on a blood thinner called Eliquis. This blood thinner should be taken for 4 to 6 weeks to prevent blood clots in your left leg. If you develop any new or concerning symptoms, such as fever, chest pain, pain with deep breaths, shortness of breath, or intractable pain/swelling in the ankle, or if you have any new concerns please return to the emergency department immediately. It was a pleasure taking care of you. Please reach out with any questions or concerns. Sincerely, The hospital medicine team at [facility] Supervising Physician Co-Signing Physician Notes I personally examined the patient and verified all nguyễn points of history and exam, discussed case, and agree with decision making with Elton Enciso PAC feels okay to go home. Knows that she needs to go slow and be safe. Vitals noted, in general she is awake and alert pleasant no distress. HEENT normocephalic atraumatic mucous membranes moist. Breathing unlabored no accessory muscle use good effort. Ankle fracture/foot fracturewants to go home instead of rehab. Discussed safety. She expresses good understanding. Outpatient PT/OT. Safe/stable for home. Otherwise as above. Total Time Total Time Spent Total Time Spent (In Minutes): 35 [place] [address] INP/OBS DISCH >30 MIN Patient Type Established Medical Decision Making High Complexity Diagnoses Left trimalleolar fracture S82.852A Fall W19.XXXA Foot fracture, right S92.901A
--- NOTE | 2024-08-24 09:50 | Orthopedic Progress Note ---
Date of Service August 24, 2024 Assessment & Plan (1) Left trimalleolar fracture: Plan: Status post ORIF left ankle fracture with Dr. Cantu PT and OT have been initiated Eliquis 2.5 mg p.o. twice daily x 46 weeks after surgery for DVT prophylaxis. Ice to left ankle as needed for pain or swelling. Encouraged elevation above her heart frequently. Continue regular diet. Pain medication as prescribed. Allowed for full range of motion of her knee and toes as tolerated. Continue a cam boot for the right ankle and foot when out of bed. May weight-bear as tolerated on her right lower extremity, nonweightbearing on left lower extremity. Out of bed with a walker or knee scooter and assistance. Follow-up as on September [address] Cantu. Findings will be discussed with Dr. Cantu. Script for wheelchair has been provided. Due to function and mobility limita tions cannot be safely resolved with the use of a cane or walker. Okay to discharge to home today with home health Admission and Anticipated Discharge Date Admission Date: August 15, 2024 Subjective This 78-year-old female is seen today in her room. She is sitting in her be dside chair. She states she has very little pain. She feels ready to go home. No chest pain or shortness of breath. No other complaints. Physical Exam Physical Exam: General: Well-developed, well-nourished, elderly female, in no acute distress. Sitting in her bedside chair. Alert and oriented. Conversive. Skin: Warm and dry with good turgor. Postop boot is on the right leg. Postsurgical splint is on the left leg. Toes are pink and warm on both feet. Musculoskeletal: The patient has intact motor function to the knees and toes on both legs. Ankle motion was not assessed due to the boot on the right in the splint on the left. She was observed ambulating to the bathroom using her walke r and bearing weight on the right leg. Neurologic: Gross sensation is intact across the toes of both feet by soft touch. Results & Data Vital Signs (Past 12 Hours) Vital Signs Temp Pulse Resp BP Pulse Ox O2 Del Method 08/24/24 07:26 36.6 C 85 16 156/86 H 94 Room Air
[2024-08-24 13:37] VITALS: BP 153/76; PULSE 100
== END 2024-08-24 14:15 | disposition home health service (06) | DRG 494 ==
LOC: ED 13:01 → SUATTDRO 17:12 → EDINP 17:12 → 3E 17:28
DX: Z79.899 Other long term (current) drug therapy; W10.9XXA Fall (on) (from) unspecified stairs and steps, initial encounter; N40.0 Benign prostatic hyperplasia without lower urinary tract symptoms; S92.021A Displaced fracture of anterior process of right calcaneus, initial encounter for closed fracture; H90.3 Sensorineural hearing loss, bilateral; M54.6 Pain in thoracic spine; S92.354A Nondisplaced fracture of fifth metatarsal bone, right foot, initial encounter for closed fracture; S82.852B Displaced trimalleolar fracture of left lower leg, initial encounter for open fracture type I or II; Z91.030 Bee allergy status; Z97.4 Presence of external hearing-aid